=== PATIENT | female | born 1970 | race Caucasian/White ===

== ENCOUNTER 2023-07-23 14:42 | Inpatient (IN) | payer MEDICARE, SELFPAY ==
[2023-07-23 14:43] VITALS: BMI 29.2
--- NOTE | 2023-07-23 14:48 | PC.NURSE ---
PATIENT REFUSING FIRST SET OF VITALS AT TRIAGE. PATIENT REMOVED BP CUFF AND PULSE OX AND WOULD NOT ALLOW FOR TEMP.
--- NOTE | 2023-07-23 14:52 | ED.C_ITS ---
HPI - Psych 2 General: Chief Complaint: Psychiatric Symptoms Stated Complaint: PSYCH Time Seen by Provider: 07/23/23 14:45 Source: patient and EMS Mode of arrival: EMS Limitations: no limitations History of Present Illness: 53-year-old female who is here with EMS for concerns of acute psychosis. Patient here is delusional she is talking about the government injecting people in monitoring him and believes she is being monitored she has a flight of ideas she denies SI or HI denies any headaches. Associated symptoms: Reports auditory hallucinations Review of Systems 2 Const: Denies: fever(s), chills, body aches or change in appetite ENMT: Denies: throat pain or dental pain Card: Denies: chest pain Resp: Denies: dyspnea GI: Denies: abdominal pain, nausea, vomiting or diarrhea Musc: Denies: neck pain or back pain Skin/Breast: Denies: rash Neuro: Denies: headache(s) Psych: Reports: paranoia and auditory hallucinations Physical Exam 2 Const: COMMON NORMALS: no acute distress, patient oriented x3 and healthy appearing HENMT: COMMON NORMALS: normocephalic and atraumatic HEAD & SCALP: n ormocephalic and atraumatic Neck/C-Spine: COMMON NORMALS: full ROM and supple Chest: COMMONS NORMALS: normal inspection of the chest Resp: COMMON NORMALS: normal respiratory effort Cardio: COMMON NORMALS: regular rate, regular rhythm and No murmurs present (Cardio) RATE: regular rate RHYTHM: regular rhythm Extremity: COMMON NORMALS: normal to inspection and full ROM Neuro: COMMON NORMALS: patient oriented x3, moves all extremities and no focal motor deficits Psych: COMMON NORMALS: mental status grossly normal and cooperative MOOD & AFFECT: Yes elevated mood THOUGHT PROCESS: disorganized and Illogical thought process present Skin: COMMON NORMALS: no rashes or lesions noted and no wounds GENERAL SKIN EXAM: no rashes or lesions noted MDM - Psych Medical Decision Making Patient presents here with acute psychosis she is placed under 96-hour hold she is medically cleared I spoke to the psychiatrist and will admit. Medical Records I reviewed the patient's medical records. Lab Data I reviewed the patient's lab results. 07/23/23 15:16 07/23/23 15:16 Laboratory Results WBC 9.08 10^3/uL (3.29-11.43) 07/23/23 15:16 RBC 4.33 10^6/uL (3.85-5.65) 07/23/23 15:16 Hgb 13.30 g/dL (11.27-16.99) 07/23/23 15:16 Hct 40.7 % (36-47) 07/23/23 15:16 MCV 94.0 fl (85-98) 07/23/23 15:16 MCH 30.7 pg (27-33) 07/23/23 15:16 MCHC 32.7 g/dL (30-55) 07/23/23 15:16 RDW 13.4 % (12.1-15.1) 07/23/23 15:16 Plt Count 267 10^3/cmm (157-399) 07/23/23 15:16 MPV 10.0 fL (7.4-10.4) 07/23/23 15:16 Neut % (Auto) 71.1 % 07/23/23 15:16 Lymph % (Auto) 20.5 % 07/23/23 15:16 [place] % (Auto) 6.8 % 07/23/23 15:16 Eos % (Auto) 1.0 % 07/23/23 15:16 Baso % (Auto) 0.4 % 07/23/23 15:16 Neut # (Auto) 6.45 10^3/uL (1.8-7.7) 07/23/23 15:16 Lymph # (Auto) 1.9 10^3/uL (0.8-4.8) 07/23/23 15:16 [place] # (Auto) 0.6 10^3/uL (0.2-0.9) 07/23/23 15:16 Eos # (Auto) 0.1 10^3/uL (0.0-0.8) 07/23/23 15:16 Baso # (Auto) 0.0 10^3/uL (0.0-0.1) 07/23/23 15:16 Nucleated RBC % (auto) 0 % 07/23/23 15:16 Nucleated RBCs # 0.0 /100WBC 07/23/23 15:16 Sodium 141 mmol/L (136-145) 07/23/23 15:16 Potassium 4.1 mmol/L (3.5-5.1) 07/23/23 15:16 Chloride 109 mmol/L (98-107) H 07/23/23 15:16 Carbon Dioxide 23 mmol/L (22-29) 07/23/23 15:16 Anion Gap 13.1 (5-19) 07/23/23 15:16 BUN 8 mg/dL (6-20) 07/23/23 15:16 Creatinine 0.6 mg/dL (0.5-0.9) 07/23/23 15:16 GFR Calculation 105.0 mL/min (90-130) 07/23/23 15:16 Glucose 104 mg/dL (65-115) 07/23/23 15:16 Calculated Osmolality 291 mOsm/kg (285-295) 07/23/23 15:16 Calcium 9.3 mg/dL (8.5-10.5) 07/23/23 15:16 Total Bilirubin 0.2 mg/dL (0.15-1.2) 07/23/23 15:16 AST 16 U/L (0-32) 07/23/23 15:16 ALT 14 U/L (0-33) 07/23/23 15:16 Alkaline Phosphatase 129 U/L (35-105) H 07/23/23 15:16 Total Protein 6.4 g/dL (6.6-8.7) L 07/23/23 15:16 Albumin 3.7 g/dL (3.5-5.2) 07/23/23 15:16 Globulin 2.7 g/dL (1.3-4.6) 07/23/23 15:16 Salicylates < 0.3 mg/dL (3-10) L 07/23/23 15:16 Acetaminophen < 5.0 ug/mL (10-30) L 07/23/23 15:16 Ethyl Alcohol < 10 mg/dL (0-10) 07/23/23 15:16 No radiology studies performed this visit Discharge Plan Discharge Patient Disposition: Admitted As Inpatient Admit Provider: Nicholas Monroy Clinical Impression: Acute psychosis Condition: Stable Coding Level of Care Code ED Dairy Inspector for Joana Sood
[2023-07-23] MEDS: haloperidol inj 5 mg/mL INJ 1 mL IM (15:04)
[2023-07-23] MEDS: LORazepam 2 mg/mL INJ 10 mL MDV IM (15:04)
[2023-07-23 15:26] LABS: Basophils % 0.4 %; Eosinophils # 0.1 10^3/uL (0.0-0.8); Hematocrit 40.7 % (36-47); Lymphocytes # 1.9 10^3/uL (0.8-4.8); Lymphocytes % 20.5 %; Mean Corpuscular HGB Conc 32.7 g/dL (30-55); Mean Corpuscular Hemoglobin 30.7 pg (27-33); Monocytes # 0.6 10^3/uL (0.2-0.9); Monocytes % 6.8 %; Neutrophils # 6.45 10^3/uL (1.8-7.7); Neutrophils % 71.1 %; Nucleated Red Blood Cells % 0 %; Platelet Count 267 10^3/cmm (157-399); Red Blood Count 4.33 10^6/uL (3.85-5.65); Red Cell Distribution Width 13.4 % (12.1-15.1); White Blood Count 9.08 10^3/uL (3.29-11.43)
[2023-07-23 15:46] LABS: Alanine Aminotransferase 14 U/L (0-33); Albumin Level 3.7 g/dL (3.5-5.2); Alkaline Phosphatase 129 U/L (35-105); Anion Gap 13.1 (5-19); Aspartate Amino Transferase 16 U/L (0-32); Blood Urea Nitrogen 8 mg/dL (6-20); Calcium 9.3 mg/dL (8.5-10.5); Carbon Dioxide 23 mmol/L (22-29); Chloride 109 mmol/L (98-107); Creatinine Clr Calc Pharmacy 110.2337; Globulin 2.7 g/dL (1.3-4.6); Glucose 104 mg/dL (65-115); Osmolality Calculated 291 mOsm/kg (285-295); Potassium 4.1 mmol/L (3.5-5.1); Sodium 141 mmol/L (136-145); Total Bilirubin 0.2 mg/dL (0.15-1.2); Total Protein 6.4 g/dL (6.6-8.7)
[2023-07-23 15:51] LABS: Acetaminophen < 5.0 ug/mL (10-30); Alcohol Level < 10 mg/dL (0-10); Salicylate < 0.3 mg/dL (3-10)
--- NOTE | 2023-07-23 15:53 | PC.NURSE ---
96 hr pt rights reviewed with patient with assistance of [facility] it security architect Hussain @[phone]. No questions or concerns at this time. Patient copy left @bedside with patient
[2023-07-23 19:00] VITALS: BP 78/50; PULSE 47; O2SAT 97
--- NOTE | 2023-07-23 21:19 | PC.NURSE ---
Report was called to Mita SWANSON in NPU by Genny SWANSON.
[2023-07-23 23:51] LABS: Amphetamines Screen Urine Negative (Negative); Barbiturates Screen Urine Negative (Negative); Benzodiazepines Screen Urine Positive (Negative); Cocaine Screen Urine Negative (Negative); Opiate Screen Urine Negative (Negative); PCP Screen Urine Negative (Negative); THC Screen Urine Positive (Negative)
[2023-07-24 06:00] VITALS: BP 129/73; PULSE 68; RESP 16; TEMP 36.5; O2SAT 98
--- NOTE | 2023-07-24 08:47 | PC.OT ---
OT eval attempted with pt declining. Pt states I'm not into the eval thing. I don't believe in psychology. Pt becomes agitated. Will attempt eval again at later time.
--- NOTE | 2023-07-24 09:15 | PC.NURSE ---
PT RESTING IN BED AND IS CLEARLY DELUSIONAL. PT SITS UP STRAIGHT IN BED AND STATED I'VE GOT TECHNOLOGY IN MY HEAD AND I HAVE FOR 4 YEARS, I'M HERE TO GET IT THAT SHIT STRAIGHT IN MY HEAD. DENIES SI AND AVH AT THIS TIME. PT ENDORSES HOMICIDAL THOUGHTS AGAINST . PT IS NOTED TO HAVE RAMBLING AND PRESSURED SPEECH DURING ASSESSMENT. PT STATES I LIVE IN TWO DIFFERENT WORLDS AT ALL TIMES AND EVERYTHING I HEAR AND SEE IS FUCKING REAL. PT DENIES PAIN PT STATES THE TECHNOLOGY IN MY HEAD TAKES THE PAIN AWAY. PT BECAME AGGITATED ABOUT THE 96 HOUR HOLD AND STATES IT IS ILLEGAL AND I'M ON A 72 HOUR OLD NOT 96, I KNOW THE LAW YOU CAN LOOK UP WHAT I DID TO THAT IN [place]. THIS RN ASKED IF SHE SAW A DRJostin IN [place] WHEN PT STARTED SCREAMING AT RN I'M NOT FROM [place] I'M FROM [place]. PT WAS ASKED WHAT HER GOAL IS FOR THE DAY PT STATED TO GO HOME BECAUSE EVERYTHING I FUCKING SEE AND HEAR IS REAL. RATES ANXIETY 2/10 AND DEPRESSION 0/10. ALL QUESTIONS ANSWERED AND SUPPORT WAS VOICED.
--- NOTE | 2023-07-24 12:10 | P.NPUHP_ITS ---
Providers/Chief Complaint 2 Admitting Physician: Nicholas Monroy MD Chief Complaint: PSYCH HPI NPU History of Present Illness Rut Bower is a 53 year old female who presented to the emergency department with the following report: Chief Complaint: Psychiatric Symptoms Stated Complaint: PSYCH Time Seen by Provider: 07/23/23 14:45 Source: patient and EMS Mode of arrival: EMS Limitations: no limitations History of Present Illness: 53-year-old female who is here with EMS for concerns of acute psychosis. Patient here is delusional she is talking about the government injecting people in monitoring him and believes she is being monitored she has a flight of ideas she denies SI or HI denies any headaches. Associated symptoms: Reports auditory hallucinations. She was admitted to the neuropsychiatric unit for definitive treatment of those issues. Her screen was positive for cannabis and benzodiazepines. She was reportedly floridly psychotic per staff reports and direct observation. She presented today reporting: Chief complaint Patient believes they were forced into programs and that biological weapons were created inside them. Reports feeling controlled and manipulated. History of the present complaint The patient reported having been admitted to psychiatric hospitals multiple times in the past. They expressed a belief that they were unique, being the only person forced into programs, specifically referring to a [employer] program . The patient claimed that during previous hospitalizations, they were not treated for any condition but were instead used for the creation of biological weapons. They expressed a strong eversion to being controlled by others. The patient reported a history of experiencing what they referred to as Duetecs , which they described as periods of insomnia lasting for days. They attributed these episodes to external influences such as satellites and underground wounds, and compared the feeling to the effects of methamphetamine. However, they denied current use of methamphetamine and stated that the only time they had used it was when they were put on SSRIs in the 80s. The patient identified themselves with the term MKUltra , which they described as a designation for a person born with the ability to have the soul to start the earth . They did not provide further clarification on this belief. The patient expressed a strong resistance to taking any medication, stating that medication had been used to control them throughout their life. They asserted their capability to control themselves without the need for drugs. The patient was aware of being on a 72-hour hold, which they insisted was the legal limit in their state. They expressed a strong desire not to have this period extended and became upset when the possibility was mentioned. They were informed that a doctor would be visiting them the following day. Mental health history Patient has been to a psychiatric hospital multiple times. Reports being part of a program called [employer] where they were forced into programs. Believes they were used for creating biological weapons. No specific mental health diagnosis or treatment mentioned. Meds NPU Home Medications Medication Instructions Recorded Confirmed Last Taken Type No Known Home Medications 07/24/23 07/24/23 Unknown History Allergies Allergy/AdvReac Type Severity Reaction Status Date / Time No Known Allergies Allergy Verified 07/23/23 15:03 PFSH NPU 2 PFSH: Social History Smoking and tobacco/nicotine status: current every day tobacco/nicotine user Mental Status Exam 2 MSE Comments: This is an obese white female in hospital scrubs with limited grooming and eye contact. No abnormal movements except for psychomotor retardation with occasional psychomotor agitation with frustration. Mostly uncooperative with exam in mild to moderate distress. Her speech was monotone in quality and decreased rate and volume except when frustrated. Her thought process was linear but often disorganized. Thought content: Patient denied suicidal or homicidal ideation, there were no delusions reported but clear paranoid and persecutory delusions with significant conspiracy theories noted, she denied any auditory or visual hallucinations but at times appeared to be attending to internal stimuli. Patient denies experiencing paranoia or hearing voices. Reports having Duetecs where they cannot sleep for days, which they describe as feeling like being on meth. Attention and concentration were limited and memory appeared unreliable but none were formally tested. She is alert and oriented to person and place. Her insight, judgment and impulse control are all impaired. Vitals/I&O/Wt Last Vital Signs Temp 97.7 F 07/24/23 06:00 Pulse 68 07/24/23 06:00 Resp 16 07/24/23 06:00 BP 129/73 07/24/23 06:00 Pulse Ox 98 07/24/23 06:00 O2 Del Method Room Air 07/23/23 22:48 Weight last 48 hrs Weight 77.111 kg Data NPU 07/23/23 15:16 07/23/23 15:16 A&P Assessment and plan (1) Acute psychosis: Plan A 53-year-old white female with a history of addiction and mental illness who presents with complex and unusual beliefs about their past and their role in the world. They believe they were part of a program where they were manipulated and controlled. They deny experiencing paranoia or hearing voices, but report periods of prolonged wakefulness. They are resistant to the idea of medication, believing it has been used to control them in the past. 1. Will attempt to gather collateral information. 2. Continue every 15 minute checks for safety. 3. Encourage individual, group and milieu therapy. 4. Encourage sober living treatment after discharge at the highest level care to which she is willing to submit as we explore whether recent addictive behavior played a role in this presentation. 5. Will encourage antipsychotic. Involuntary Hold Information 2 96 Hour Hold: 96 Hour Involuntary Admission: Yes Attestations NPU 2 Medical Necessity Statement*: Inpatient hospitalization is medically necessary and the clinically appropriate intervention at this time. We will monitor/initiate medications and make changes as indicated. She will be in the hospital for over 2 midnights. Her likely length of stay 4-6 days. Coding Level of Care Code Acute Code for Joana Sood Diagnoses Acute psychosis F23
[2023-07-24 14:00] VITALS: BP 139/86; PULSE 90; RESP 20; TEMP 36.7; O2SAT 98
[2023-07-24 22:00] VITALS: BP 121/86; PULSE 95; RESP 18; TEMP 36.6; O2SAT 97
[2023-07-25 06:00] VITALS: BP 139/77; PULSE 58; RESP 16; TEMP 36.6; O2SAT 97
--- NOTE | 2023-07-25 12:15 | PC.NURSE ---
Room searched for contraband. Chips confiscated.
[2023-07-25 14:00] VITALS: BP 109/71; PULSE 63; RESP 20; TEMP 36.9; O2SAT 97
[2023-07-25 21:04] VITALS: BP 160/86; PULSE 90; RESP 18; TEMP 36.7; O2SAT 99
--- NOTE | 2023-07-25 21:59 | P.NPUPN_ITS ---
Subjective NPU 2 Subjective: 53-year-old female with acute psychosis and paranoia currently refusing medications at this time. Patient stated that her had insisted that she take her antidepressants and she did not wish to oblige. She reported that she was somehow being forced and influenced to comply and stated that she was part of a program that was involved in performing special operations and the government was somehow trying to get her. Mental Status Exam 2 MSE Comments: This is an obese white female in hospital scrubs with limited grooming and eye contact. No abnormal movements except for psychomotor retardation with occasional psychomotor agitation with frustration. She was minimally cooperative with exam in mild to moderate distress. Her speech was monotone in quality and decreased rate and volume except when frustrated. Her thought process was linear but often disorganized. Thought content: Patient denied suicidal or homicidal ideation, there were no delusions reported but clear paranoid and persecutory delusions with significant conspiracy theories noted, she denied any auditory or visual hallucinations but at times appeared to be attending to internal stimuli. Patient denies experiencing paranoia or hearing voices. Attention and concentration were limited and memory appeared unreliable but none were formally tested. She is alert and oriented to person and place. Her insight, judgment and impulse control are all impaired. Vitals/I&O/Wt Last Vital Signs Temp 98.0 F 07/25/23 21:04 Pulse 90 07/25/23 21:04 Resp 18 07/25/23 21:04 BP 160/86 07/25/23 21:04 Pulse Ox 99 07/25/23 21:04 O2 Del Method Room Air 07/25/23 21:04 Data NPU 07/23/23 15:16 07/23/23 15:16 A&P Assessment and plan (1) Acute psychosis: Plan A 53-year-old white female with a history of addiction and mental illness who presents with complex and unusual beliefs about their past and their role in the world. They believe they were part of a program where they were manipulated and controlled. They deny experiencing paranoia or hearing voices, but report periods of prolonged wakefulness. They are resistant to the idea of medication, believing it has been used to control them in the past. 1. Will attempt to gather collateral information. 2. Continue every 15 minute checks for safety. 3. Encourage individual, group and milieu therapy. 4. Encourage sober living treatment after discharge at the highest level care to which she is willing to submit as we explore whether recent addictive behavior played a role in this presentation. 5. Will encourage antipsychotic. Involuntary Hold Information 2 96 Hour Hold: 96 Hour Involuntary Admission: Yes Attestations NPU 2 Medical Necessity Statement*: Inpatient hospitalization is medically necessary and the clinically appropriate intervention at this time. We will monitor/initiate medications and make changes as indicated. Her likely length of stay 5-7 days. Coding Level of Care Code Acute Code for Chg Fwd Diagnoses Acute psychosis F23
[2023-07-25] MEDS: acetaminophen 325 mg Tablet 650 MG PO (22:34)
[2023-07-25] MEDS: ibuprofen 600 mg Tablet PO (23:10)
[2023-07-26 06:00] VITALS: BP 157/85; PULSE 57; RESP 17; TEMP 36.6; O2SAT 99
[2023-07-26] MEDS: ibuprofen 600 mg Tablet PO ×3 (07:51→20:18)
--- NOTE | 2023-07-26 11:08 | PC.NURSE ---
Pt refused to take her 3mg Invega this morning, pt stated that if she took this it would make her suicidal.
[2023-07-26] MEDS: acetaminophen 325 mg Tablet 650 MG PO ×2 (11:39→15:56)
--- NOTE | 2023-07-26 12:26 | PC.NURSE ---
Patient room searched for contraband. None found.
[2023-07-26 14:00] VITALS: BP 158/96; PULSE 70; RESP 20; TEMP 36.6; O2SAT 99
--- NOTE | 2023-07-26 15:57 | PC.NURSE ---
Patient threatening to chelsea the doctor because she states he is not letting her leave to go to the emergency room to go get help for her back pain. Doctor notified and tylenol given.
--- NOTE | 2023-07-26 18:50 | P.NPUPN_ITS ---
Subjective NPU 2 Subjective: 53-year-old female with acute psychosis and paranoia. 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 She had continued to isolate herself on the milieu. She had insisted that she be allowed to go home. She had reported that she had previously been diagnosed with bipolar and stated that others in the past had tried to put her on medications but she reports that she became suicidal whenever she got put on those medications. She had reported that she did not wish to become addicted to any medications at this time as she felt that all SSRI's were like crack cocaine. She minimized any problems with sleep disturbance. Mental Status Exam 2 MSE Comments: This is an obese white female in hospital scrubs with limited grooming and eye contact. No abnormal movements except for psychomotor retardation with occasional psychomotor agitation with frustration. She was minimally cooperative with exam in mild to moderate distress. Her speech was monotone in quality and decreased rate and volume except when frustrated. Her thought process was linear. Thought content: Patient denied suicidal or homicidal ideation, there were no delusions reported but clear paranoid and persecutory delusions with significant conspiracy theories noted, she denied any auditory or visual hallucinations but at times appeared to be attending to internal stimuli. Patient denies experiencing paranoia or hearing voices. Attention and concentration were limited and memory appeared unreliable but none were formally tested. She is alert and oriented to person and place. Her insight, judgment and impulse control are all impaired. Vitals/I&O/Wt Last Vital Signs Temp 97.8 F 07/26/23 14:00 Pulse 70 07/26/23 14:00 Resp 20 H 07/26/23 14:00 BP 158/96 07/26/23 14:00 Pulse Ox 99 07/26/23 14:00 O2 Del Method Room Air 07/26/23 06:00 Weight last 48 hrs Weight 75.523 kg Data NPU 07/23/23 15:16 07/23/23 15:16 A&P Assessment and plan (1) Acute psychosis: Plan A 53-year-old white female with a history of addiction and mental illness who presents with complex and unusual beliefs about their past and their role in the world. They believe they were part of a program where they were manipulated and controlled. They deny experiencing paranoia or hearing voices, but report periods of prolonged wakefulness. They are resistant to the idea of medication, believing it has been used to control them in the past. 1. Will attempt to gather collateral information. 2. Continue every 15 minute checks for safety. 3. Encourage individual, group and milieu therapy. 4. Encourage sober living treatment after discharge at the highest level care to which she is willing to submit as we explore whether recent addictive behavior played a role in this presentation. 5. Invega 6mg daily. Involuntary Hold Information 2 96 Hour Hold: 96 Hour Involuntary Admission: Yes Attestations NPU 2 Medical Necessity Statement*: Inpatient hospitalization is medically necessary and the clinically appropriate intervention at this time. We will monitor/initiate medications and make changes as indicated. Her likely length of stay 5-7 days. Coding Level of Care Code Acute Code for Chg Fwd Diagnoses Acute psychosis F23
[2023-07-26 20:06] VITALS: BP 159/133; PULSE 112; RESP 16; TEMP 36.6; O2SAT 98
[2023-07-26 20:27] VITALS: BP 157/93
[2023-07-26] MEDS: trazodone 50 mg Tablet PO ×2 (21:30→22:34)
[2023-07-27] MEDS: ibuprofen 600 mg Tablet PO ×2 (05:13→18:36)
[2023-07-27 06:00] VITALS: BP 159/79; PULSE 54; RESP 18; TEMP 36.5; O2SAT 98
--- NOTE | 2023-07-27 08:20 | PC.NURSE ---
PT DECLINES TAKING INVEGA 6 MG. PT STATES I DON'T TAKE ANTI-PYCHOTICS THAT MAKE ME WANT TO KILL MYSELF. RN ASKED PT IS SHE TOOK THE MEDICATION YESTERDAY, PT STATED NO AND I AM NOT GOING TO. DR. LUKE NOTIFIED, NO NEW ORDERS RECEIVED.
--- NOTE | 2023-07-27 09:05 | PC.NURSE ---
PT UP IN DAY ROOM PUTTING TOGETHER. PT DENIES SI/HI AND AVH AT THIS TIME. RATES PAIN 2/. PT TOOK IBUPROFEN LAST SHIFT AND REPORTS IF SHE POSITIONS HERSELF RIGHT I DON'T HURT RATES ANXIETY 0/10 AND DEPRESSION 3/10 BECAUSE I'M HERE. THAT IS A COMMUNIST. I DON'T BELIEVE IN LOCKING PEOPLE UP THAT HAVEN'T COMMITTED A CRIME. PT WAS EDUCATED THAT SHE IS HERE DUE TO BEING A DANGER TO HERSELF AND OTHERS AND WHEN THE BELIEVES SHE IS SAFE FOR DISCHARGE THEN SHE WILL DISCHARGE. PT CONTINUED MAKING STATEMENTS ABOUT COMMUNIST. PT IS GUARDED WITH STAFF. REPORTS SHE SLEPT WELL. PT GOAL FOR THE DAY IS TO GO HOME WITH MY WHEN HE GETS HERE. ALL QUESTIONS WERE ANSWERED AND SUPPORT VOICED.
[2023-07-27] MEDS: acetaminophen 325 mg Tablet 650 MG PO (10:30)
[2023-07-27 12:10] VITALS: BP 164/88; PULSE 62; RESP 18; TEMP 36.6; O2SAT 98
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
[2023-07-27 19:25] VITALS: BP 174/113; PULSE 76; RESP 18; TEMP 36.8; O2SAT 98
[2023-07-27 20:00] VITALS: BP 163/96; PULSE 55; RESP 17; O2SAT 98
[2023-07-27] MEDS: trazodone 50 mg Tablet PO ×2 (20:11→21:25)
[2023-07-28 06:00] VITALS: BP 128/71; PULSE 53; RESP 16; TEMP 36.6; O2SAT 99
--- NOTE | 2023-07-28 07:32 | PC.NURSE ---
During morning shift assessment, patient stated that she is doing good. Patient reports anxiety about possibly not being discharged today. Patient denies SI, HI, AVH. Patient stated that she does not feel like she should be kept on the unit like a prisoner without committing a crime.
--- NOTE | 2023-07-28 08:08 | PC.NURSE ---
Patient refused invega this morning, stating that she doesn't want to take any new medications here for fear that she will over-react as a side effect and hurt people because of PTSD. Attempts to persuade patient were unsuccessful.
[2023-07-28 13:47] VITALS: BP 150/97; PULSE 102; RESP 20; TEMP 36.8; O2SAT 99
[2023-07-28] MEDS: ibuprofen 600 mg Tablet PO (15:35)
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
[2023-07-28] MEDS: ondansetron 4 MG Tablet PO (19:14)
[2023-07-28 19:15] LABS: Glucose Point of Care 103 mg/dL (70-110)
[2023-07-28 20:07] VITALS: BP 115/70; PULSE 60; RESP 19; TEMP 36.8; O2SAT 97
[2023-07-28] MEDS: trazodone 50 mg Tablet PO (21:04)
[2023-07-29 06:00] VITALS: BP 159/82; PULSE 48; RESP 17; TEMP 36.5; O2SAT 100
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
[2023-07-29] MEDS: paliperidone ER 3 mg Tablet 6 MG PO (09:25)
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
--- NOTE | 2023-07-29 09:58 | DCPLANNER ---
IMM was given to pt and right explained and copy placed in file.
[2023-07-29 10:21] VITALS: BP 159/82; PULSE 48; RESP 17; TEMP 36.5; O2SAT 100
== END 2023-07-29 11:36 | disposition home or self-care (01) | DRG 885 ==
LOC: ER 17:51 → NP 18:10
PROVIDERS: Admitting Provider Psychiatry & Neurology Psychiatry; Emergency Provider Emergency Medicine; Visit Provider Psychiatry & Neurology Psychiatry
DX: F23 Brief psychotic disorder (principal); F17.210 Nicotine dependence, cigarettes, uncomplicated
CPT/HCPCS: 36415; 36416; 80053; 80306; 80307; 82962; 85025; 96372; 97150; 97165; 99285; J1630; J2060; Q0162

== ENCOUNTER 2023-08-10 10:34 | Inpatient (IN) | payer MEDICARE, SELFPAY ==
[2023-08-10 10:35] VITALS: BP 172/98; PULSE 93; RESP 18; TEMP 37.1; O2SAT 95; BMI 27.4
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
[2023-08-10] MEDS: LORazepam 2 mg/mL INJ 10 mL MDV IM (11:11)
[2023-08-10] MEDS: ziprasidone 20 mg/mL SDV 10 MG IM (11:11)
--- NOTE | 2023-08-10 11:52 | PC.NURSE ---
96 hr rights reviewed with patient @1055 with assistance of [facility] financial officer Aaron. Patient verbalized understandment of rights and had not questions or concerns at this time. Patient copy was left @bedside with patient. Cup of water provided to patient.
[2023-08-10 13:10] VITALS: BP 151/102; PULSE 88; RESP 17; TEMP 36.8; O2SAT 97
[2023-08-10 14:00] VITALS: BP 123/78; PULSE 100; RESP 16; TEMP 36.8; O2SAT 98
--- NOTE | 2023-08-10 18:20 | PC.NURSE ---
Patient's wound on left foot cleaned with sterile water, NIRMAL applied. Area covered with gauze. Patient tolerated well. Patient refused tetanus injection.
[2023-08-10] MEDS: neomycin-poly-bacitracin oint 28 gm 1 APPLIC TOPICAL (18:25)
[2023-08-10 21:13] VITALS: BP 123/75; PULSE 91; RESP 16; TEMP 36.8; O2SAT 95
[2023-08-11 06:00] VITALS: BP 136/88; PULSE 60; RESP 18; TEMP 36.6; O2SAT 97
[2023-08-11] MEDS: neomycin-poly-bacitracin oint 28 gm 1 APPLIC TOPICAL (08:48)
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
[2023-08-11 14:00] VITALS: BP 139/84; PULSE 75; RESP 20; TEMP 37; O2SAT 97
[2023-08-11] MEDS: ibuprofen 600 mg Tablet PO (16:22)
--- NOTE | 2023-08-11 16:22 | PC.NURSE ---
PRN Medication: Ibuprofen 600 mg PO given to pt for c/o toothache
[2023-08-11 20:18] VITALS: BP 130/79; PULSE 64; RESP 16; TEMP 36.7; O2SAT 99
[2023-08-11 22:44] LABS: Add Urine Microscopic? YES; Bacteria Urine 3+ /hpf; Bilirubin Urine Neg (Negative); Blood Urine Neg (Negative); Calcium Oxalate Crystals Urine 0-4 /hpf; Glucose Urine UA Norm (Normal); Ketones Urine Negative (Negative); Leukocyte Esterase Urine Negative (Negative); Nitrate Urine Positive (Negative); Protein Urine Neg (Negative); Specific Gravity, Urine 1.025 (1.005-1.030); Squamous Epithelial Cell Urine 0-4 /hpf (0-5); Urine Appearance Slightly Cloudy (CLEAR); Urine Color Yellow (Yellow); Urobilinogen Urine Norm (Negative); pH Urine 5 (5-7)
[2023-08-11 22:45] LABS: Add Urine Culture? Yes
[2023-08-11 22:51] LABS: Amphetamines Screen Urine Negative (Negative); Barbiturates Screen Urine Negative (Negative); Benzodiazepines Screen Urine Positive (Negative); Cocaine Screen Urine Negative (Negative); Opiate Screen Urine Negative (Negative); PCP Screen Urine Negative (Negative); THC Screen Urine Positive (Negative)
[2023-08-12 06:00] VITALS: BP 136/78; PULSE 58; RESP 16; TEMP 36.8; O2SAT 98
[2023-08-12] MEDS: ibuprofen 600 mg Tablet PO (09:13)
[2023-08-12] MEDS: neomycin-poly-bacitracin oint 28 gm 1 APPLIC TOPICAL ×2 (09:14→16:54)
--- NOTE | 2023-08-12 12:39 | P.NPUPN_ITS ---
Subjective NPU 2 Subjective: Patient presented today reporting that she is doing okay. However she continued to have all the same conspiracy theories MK ultra, being a puppet, we will try to give her HIV through medications, excetra. We discussed that this represented psychosis and we ultimately discussed the risks, benefits and alternatives of a trial of Abilify and she understood and agreed to proceed as is documented in this note. She asked for information on it and finally agreed to have her labs done so that she could identify if there was any reason why she should not take the medication based on things she has read. Mental Status Exam 2 MSE Comments: This is an obese white female in hospital scrubs with limited grooming and eye contact. With a notable stench if you are within a couple arms length of her. No abnormal movements except for psychomotor retardation with occasional psychomotor agitation with frustration. Mostly uncooperative with exam in mild to moderate distress. Her speech was monotone in quality and decreased rate and volume except when frustrated. Her thought process was linear but often disorganized. Thought content: Patient denied suicidal or homicidal ideation, there were no delusions reported but clear paranoid and persecutory delusions with significant conspiracy theories noted, she denied any auditory or visual hallucinations but at times appeared to be attending to internal stimuli. Patient denies experiencing paranoia or hearing voices. Reports having Duetecs where they cannot sleep for days, which they describe as feeling like being on meth. Attention and concentration were limited and memory appeared unreliable but none were formally tested. She is alert and oriented to person and place. Her insight, judgment and impulse control are all impaired. Vitals/I&O/Wt Last Vital Signs Temp 98.3 F 08/12/23 06:00 Pulse 58 L 08/12/23 06:00 Resp 16 08/12/23 06:00 BP 136/78 08/12/23 06:00 Pulse Ox 98 08/12/23 06:00 O2 Del Method Room Air 08/11/23 06:00 Data NPU 08/12/23 19:08 08/12/23 19:08 A&P Assessment and plan (1) Acute psychosis: Plan A 53-year-old white female with a history of addiction and mental illness who returns after a short time after her last discharge again presenting with complex and unusual beliefs about their past and their role in the world. They believe they were part of a program where they were manipulated and controlled. They deny experiencing paranoia or hearing voices, but report periods of prolonged wakefulness. They are resistant to the idea of medication, believing it has been used to control them in the past. 1. Will attempt to gather collateral information. 2. Continue every 15 minute checks for safety. 3. Encourage individual, group and milieu therapy. 4. Encourage sober living treatment after discharge at the highest level care to which she is willing to submit as we explore whether recent addictive behavior played a role in this presentation. 5. Will initiate Abilify 10 mg p.o. daily if she will take it. She continues to refuse other medication. Involuntary Hold Information 2 96 Hour Hold: 96 Hour Involuntary Admission: Yes 96 Hour Hold Ending Date: 08/14/23 96 Hour Hold Ending Time: 10:45 Attestations NPU 2 Medical Necessity Statement*: Inpatient hospitalization is medically necessary and the clinically appropriate intervention at this time. We will monitor/initiate medications and make changes as indicated. Her likely length of stay 4-6 days. Coding Level of Care Code Acute Code for Chg Fwd Diagnoses Acute psychosis F23
[2023-08-12 14:00] VITALS: BP 115/77; PULSE 97; RESP 16; TEMP 36.8; O2SAT 98
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
[2023-08-12 19:16] LABS: Basophils # 0.1 10^3/uL (0.0-0.1); Basophils % 0.6 %; Eosinophils # 0.1 10^3/uL (0.0-0.8); Lymphocytes # 2.8 10^3/uL (0.8-4.8); Lymphocytes % 26.4 %; Mean Corpuscular HGB Conc 32.3 g/dL (30-55); Mean Corpuscular Hemoglobin 30.2 pg (27-33); Mean Corpuscular Volume 93.5 fl (85-98); Mean Platelet Volume 10.2 fL (7.4-10.4); Monocytes # 0.8 10^3/uL (0.2-0.9); Monocytes % 7.2 %; Neutrophils # 6.93 10^3/uL (1.8-7.7); Neutrophils % 64.6 %; Nucleated Red Blood Cells % 0 %; Platelet Count 269 10^3/cmm (157-399); Red Blood Count 4.17 10^6/uL (3.85-5.65); Red Cell Distribution Width 13.1 % (12.1-15.1); White Blood Count 10.72 10^3/uL (3.29-11.43)
[2023-08-12 19:39] LABS: Alanine Aminotransferase 11 U/L (0-33); Albumin Level 3.7 g/dL (3.5-5.2); Alkaline Phosphatase 123 U/L (35-105); Aspartate Amino Transferase 12 U/L (0-32); Blood Urea Nitrogen 15 mg/dL (6-20); Calcium 9.3 mg/dL (8.5-10.5); Carbon Dioxide 24 mmol/L (22-29); Chloride 111 mmol/L (98-107); Creatinine Clr Calc Pharmacy 128.5106; Globulin 2.5 g/dL (1.3-4.6); Glomerular Filtration Rate 129.6 mL/min (90-130); Glucose 85 mg/dL (65-115); Osmolality Calculated 298 mOsm/kg (285-295); Sodium 144 mmol/L (136-145); Total Bilirubin 0.2 mg/dL (0.15-1.2); Total Protein 6.2 g/dL (6.6-8.7)
[2023-08-12 20:56] VITALS: BP 113/82; PULSE 76; RESP 18; TEMP 36.5; O2SAT 97
[2023-08-13 06:00] VITALS: BP 102/31; PULSE 62; RESP 16; TEMP 36.7; O2SAT 98
--- NOTE | 2023-08-13 08:14 | PC.NURSE ---
Pt was served a spoiled milk carton dated August 13 2023, that was delivered from the meal breakfast cart. This nurse witnessed that the milk was chunky and clabbered, as well as the Battery Checker.
[2023-08-13] MEDS: ARIPiprazole 10 mg Tablet PO (08:42)
[2023-08-13] MEDS: neomycin-poly-bacitracin oint 28 gm 1 APPLIC TOPICAL ×2 (10:04→18:14)
[2023-08-13 13:42] VITALS: BP 112/61; PULSE 71; RESP 16; TEMP 36.9; O2SAT 99
--- NOTE | 2023-08-13 14:26 | P.NPUPN_ITS ---
Subjective NPU 2 Subjective: Patient presents today reporting that she is doing okay. She did have the Abilify after seeing the results of her labs. She denied any issues thus far except for it making her feel a little sleepy. We discussed the risks, benefits and alternatives of changing it to evening tomorrow and she understood and agreed to proceed as is documented in this note. She continues to be quite delusional and reports significant conspiracy theories per staff reports and direct observation. Mental Status Exam 2 MSE Comments: This is an obese white female in hospital scrubs with limited grooming and eye contact. With a notable stench if you are within a couple arms length of her. No abnormal movements except for psychomotor retardation. Mostly slightly more cooperative with exam in mild to moderate distress. Her speech was monotone in quality and decreased rate and volume except when frustrated. Her thought process was linear but often disorganized. Thought content: Patient denied suicidal or homicidal ideation, there were no delusions reported but clear paranoid and persecutory delusions with significant conspiracy theories noted, she denied any auditory or visual hallucinations but at times appeared to be attending to internal stimuli. Patient denies experiencing paranoia or hearing voices. Reports having Duetecs where they cannot sleep for days, which they describe as feeling like being on meth. Attention and concentration were limited and memory appeared unreliable but none were formally tested. She is alert and oriented to person and place. Her insight, judgment and impulse control are all impaired. Vitals/I&O/Wt Last Vital Signs Temp 98.4 F 08/13/23 13:42 Pulse 71 08/13/23 13:42 Resp 16 08/13/23 13:42 BP 112/61 08/13/23 13:42 Pulse Ox 99 08/13/23 13:42 O2 Del Method Room Air 08/13/23 13:42 Data NPU 08/12/23 19:08 08/12/23 19:08 Micro: Microbiology 08/11/23 21:32 Urine Culture - Preliminary Urine,Clean Catch Gram Negative Rods Microbiology 08/11/23 21:32 Urine,Clean Catch Urine Culture - Preliminary Gram Negative Rods A&P Assessment and plan (1) Acute psychosis: Plan A 53-year-old white female with a history of addiction and mental illness who returns after a short time after her last discharge again presenting with complex and unusual beliefs about their past and their role in the world. They believe they were part of a program where they were manipulated and controlled. They deny experiencing paranoia or hearing voices, but report periods of prolonged wakefulness. They are resistant to the idea of medication, believing it has been used to control them in the past. 1. Will attempt to gather collateral information. 2. Continue every 15 minute checks for safety. 3. Encourage individual, group and milieu therapy. 4. Encourage sober living treatment after discharge at the highest level care to which she is willing to submit as we explore whether recent addictive behavior played a role in this presentation. 5. Initiated Abilify 10 mg p.o. daily. We agreed to change it to 10 mg p.o. nightly tomorrow because she reports it making her a bit drowsy. 6. Filed for 96-hour hold and will likely quickly move to a 21-day hold. Involuntary Hold Information 2 96 Hour Hold: 96 Hour Involuntary Admission: Yes 96 Hour Hold Ending Date: 08/14/23 96 Hour Hold Ending Time: 10:45 Attestations NPU 2 Medical Necessity Statement*: Inpatient hospitalization is medically necessary and the clinically appropriate intervention at this time. We will monitor/initiate medications and make changes as indicated. Her likely length of stay 4-6 days. Coding Level of Care Code Acute Code for g Fwd Diagnoses Acute psychosis F23
[2023-08-13 19:47] VITALS: BP 109/70; PULSE 55; RESP 19; TEMP 36.9; O2SAT 97
[2023-08-14 06:00] VITALS: BP 142/84; PULSE 60; RESP 16; TEMP 36.6; O2SAT 98
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
[2023-08-14] MEDS: ibuprofen 600 mg Tablet PO ×2 (08:01→14:26)
[2023-08-14] MEDS: loperamide 2 mg Capsule PO (08:26)
--- NOTE | 2023-08-14 08:38 | PC.NURSE ---
Patient stated she did not want to use the antibiotic ointment on her foot this morning and that she would like to use it after she showers instead.
--- NOTE | 2023-08-14 10:21 | PC.NURSE ---
PT UP TO NURSES STATION REQUESTING MY BLOOD SUGAR GET CHECKED. I STARTED THAT ABILIFY I DID MY LABS BUT YOU SAID THE OTHER DAY IF I TOOK THE ABILIFY YOU WOULD CHECK MY SUGAR SO I KNOW ITS OK. NEW ORDERS RECEIVED FROM DR. LOVE TO TAKE BLOOD GLUCOSE. PT EDUCATED OF NEW ORDERS. GUEST REQUEST RUNNER TO CHECK GLUCOSE.
[2023-08-14 11:23] LABS: Glucose Point of Care 132 mg/dL (70-110)
[2023-08-14] MEDS: ondansetron 4 MG Tablet PO (11:52)
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
[2023-08-14 13:52] VITALS: BP 140/93; PULSE 59; RESP 16; TEMP 36.9; O2SAT 97
--- NOTE | 2023-08-14 14:30 | PC.NURSE ---
PT TO NURSES STATION REQUESTING SOMETHING FOR MY MOUTH PAIN, I'VE HAD A TOOTHACHE SINCE I WAS F[age]. I KNEW I SHOULD HAVE SUED THEM SOON I FOUND OUT THEY PROGRAMED MY BODY TO HAVE TOOTH PAIN. RN ASSESSED MOUTH AND MUCOUS MEMBRANES, POOR DENTATION IS NOTED TO TEETH AND MOUTH APPEARS REDDENED. NEW ORDERS RECEIVED START CHLORAHEXADINE MOUTH WASH QID FOR MOUTH PAIN/MOUTH IRRITATION. ORDERS PLACED. PT EDUCATED ON MEDICATION/MOUTH WASH. VERBALIZED UNDERSTANDING.
[2023-08-14] MEDS: chlorhexidine gluconate 0.12% Btl 473 mL 30 ML MUCOUS MEM (16:02)
--- NOTE | 2023-08-14 17:59 | P.CONIM_ITS ---
Providers/Reason For Consult 2 Consulting Physician/Specialty*: Hospitalist Reason for Consult*: Hypertension, UTI Attending Physician: Nicholas Monroy MD History of Present Illness History of Present Illness Rut Bower is a 53 year old female who has been experiencing signs of UTI with dysuria, she has not noticed any fever, nausea, vomiting, chills. She is admitted to psych unit, hospital service was consulted for positive urine cultures to help with antibiotic regimen. Review of Systems 2 Const: Denies: fever(s) Eyes: Denies: change in vision ENMT: Denies: throat pain Card: Denies: chest pain Resp: Denies: dyspnea GI: Denies: abdominal pain Medications/Allergies Home Medications Medication Instructions Recorded Confirmed Last Taken Type paliperidone 6 mg tablet,extended 6 mg PO DAILY 30 days #30 tabs 07/29/23 08/10/23 Unknown Rx release 24 hr Allergies Allergy/AdvReac Type Severity Reaction Status Date / Time No Known Allergies Allergy Verified 07/23/23 15:03 Current Medications Generic Name Dose Route Start Last Admin Trade Name Freq PRN Reason Stop Dose Admin Chlorhexidine Gluconate 30 ml 08/14/23 14:29 08/14/23 16:02 Chlorhexidine Gluconate 0.12% Btl 473 Ml MUCOUS MEM 30 ml QID PRN Administration TOOTHACHE Ibuprofen 600 mg 08/11/23 16:12 08/14/23 14:26 Ibuprofen 600 Mg Tablet PO 600 mg Q6H PRN Administration MODERATE PAIN Loperamide HCl 2 mg 08/10/23 13:10 08/14/23 08:26 Loperamide 2 Mg Capsule PO 2 mg Q6H PRN Administration DIARRHEA Neomycin/Polymyxin/Bacitracin 1 applic 08/10/23 18:00 08/14/23 08:38 Wuqzhbcv-Jglc-Nxpvxjgwoh Oint 28 Gm TOPICAL Not Given BID ALBARO Ondansetron HCl 4 mg 08/10/23 13:10 08/14/23 11:52 Ondansetron 4 Mg Tablet PO 4 mg Q6H PRN Administration NAUSEA AND VOMITING PFSH Acute 2 PFSH: Social History Smoking and tobacco/nicotine status: current every day tobacco/nicotine user Vitals/I&O/Wt Last Vital Signs Temp 98.4 F 08/14/23 13:52 Pulse 59 L 06/21/24 13:52 Resp 16 08/14/23 13:52 BP 140/93 08/14/23 13:52 Pulse Ox 97 08/14/23 13:52 O2 Del Method Room Air 08/14/23 06:00 Physical Exam 2 Narrative: Pleasant cooperative Hemodynamically stable GCS 15 Nonfocal neuroexam S1, S2 Afebrile Data 08/15/23 08:02 08/15/23 08:02 Micro: Microbiology 08/11/23 21:32 Urine Culture - Final Urine,Clean Catch Klebsiella pneumoniae Citrobacter Freundii Complex A&P Assessment and plan (1) UTI (urinary tract infection): (2) HTN (hypertension): Plan UTI Klebsiella and Citrobacter sensitive to levofloxacin Bactrim and nitrofurantoin To avoid QT prolonged patient with antipsychotics I would use Bactrim for now Check BMP in the morning anticipating slight increase in creatinine with use of Bactrim Hypertension: Add low-dose lisinopril Consult Attestations 2 Medical Necessity Statement: As per NPU Diagnoses UTI (urinary tract infection) N39.0 HTN (hypertension) I10
--- NOTE | 2023-08-14 18:08 | PC.NURSE ---
Patient requested to use her own personal brush and comb. Dr. Monroy denied this request.
[2023-08-14] MEDS: sulfamethoxazole-trimeth DS 160-800 mg Tablet 1 TAB PO (18:23)
--- NOTE | 2023-08-14 18:25 | PC.NURSE ---
Patient refused ointment again this evening, stating she didn't want to use until she had taken a shower. She stated she was taking a shower at this time since she was refused the request to use her own hairbrush. It was suggested that she just clean the wound and put the ointment on it, but she refused. However, patient was very calm throughout the conversation.
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
[2023-08-14] MEDS: ARIPiprazole 10 mg Tablet PO (20:00)
[2023-08-14 20:20] VITALS: BP 145/85; PULSE 63; RESP 16; TEMP 37; O2SAT 97
[2023-08-15 06:00] VITALS: BP 132/83; PULSE 60; RESP 18; TEMP 36.7; O2SAT 99
[2023-08-15] MEDS: ibuprofen 600 mg Tablet PO ×2 (07:19→14:49)
[2023-08-15 08:17] LABS: Basophils # 0.1 10^3/uL (0.0-0.1); Basophils % 0.7 %; Eosinophils # 0.1 10^3/uL (0.0-0.8); Eosinophils % 1.4 %; Hematocrit 41.4 % (36-47); Lymphocytes # 1.8 10^3/uL (0.8-4.8); Lymphocytes % 21.4 %; Mean Corpuscular HGB Conc 32.9 g/dL (30-55); Mean Corpuscular Hemoglobin 30.8 pg (27-33); Mean Corpuscular Volume 93.9 fl (85-98); Mean Platelet Volume 10.1 fL (7.4-10.4); Monocytes # 0.7 10^3/uL (0.2-0.9); Monocytes % 8.4 %; Neutrophils # 5.83 10^3/uL (1.8-7.7); Neutrophils % 67.8 %; Nucleated Red Blood Cells % 0 %; Platelet Count 268 10^3/cmm (157-399); Red Blood Count 4.41 10^6/uL (3.85-5.65); Red Cell Distribution Width 13.1 % (12.1-15.1)
[2023-08-15] MEDS: sulfamethoxazole-trimeth DS 160-800 mg Tablet 1 TAB PO ×2 (08:45→17:57)
[2023-08-15] MEDS: neomycin-poly-bacitracin oint 28 gm 1 APPLIC TOPICAL ×2 (08:45→17:58)
[2023-08-15] MEDS: lisinopril 10 mg Tablet PO (08:45)
[2023-08-15 08:53] LABS: Anion Gap 13.3 (5-19); Blood Urea Nitrogen 9 mg/dL (6-20); Calcium 9.3 mg/dL (8.5-10.5); Carbon Dioxide 27 mmol/L (22-29); Chloride 106 mmol/L (98-107); Creatinine Clr Calc Pharmacy 91.7933; Glomerular Filtration Rate 87.9 mL/min (90-130); Glucose 91 mg/dL (65-115); Osmolality Calculated 292 mOsm/kg (285-295); Potassium 4.3 mmol/L (3.5-5.1); Sodium 142 mmol/L (136-145)
[2023-08-15] MEDS: chlorhexidine gluconate 0.12% Btl 473 mL 30 ML MUCOUS MEM ×2 (08:55→18:01)
--- NOTE | 2023-08-15 08:57 | PC.NURSE ---
Pt requested a print out of Lisinopril before taking the medication, Pt did her research and decided to take her ordered dose.
--- NOTE | 2023-08-15 10:16 | P.NPUPN_ITS ---
Subjective NPU 2 Subjective: Patient presented today reporting that she is feeling okay. She reports that taking the Abilify at night as allowed her not to have daytime drowsiness and she is denying any issues with the medication. We discussed continuing to taper it as indicated. She seemed to be less preoccupied with her conspiracy theories per staff reports and direct observation however upon asking about her conspiracies she did acknowledge not thinking about being turned into an assassin is much but that she was still thinking about the other issues. She denied any side effects of the medication. Mental Status Exam 2 MSE Comments: This is an obese white female in hospital scrubs with limited grooming and eye contact. With a notable stench if you are within a couple arms length of her. No abnormal movements except for psychomotor retardation. Mostly slightly more cooperative with exam in mild distress. Her speech was monotone in quality and decreased rate and volume except when frustrated. Her thought process was linear but often disorganized. Thought content: Patient denied suicidal or homicidal ideation, there were no delusions reported but clear paranoid and persecutory delusions with significant conspiracy theories noted, she denied any auditory or visual hallucinations but at times appeared to be attending to internal stimuli. Patient denies experiencing paranoia or hearing voices. Reports having Duetecs where they cannot sleep for days, which they describe as feeling like being on meth. Attention and concentration were limited and memory appeared unreliable but none were formally tested. She is alert and oriented to person and place. Her insight, judgment and impulse control are all impaired. Vitals/I&O/Wt Last Vital Signs Temp 98.1 F 08/15/23 06:00 Pulse 60 08/15/23 06:00 Resp 18 08/15/23 06:00 BP 132/83 08/15/23 06:00 Pulse Ox 99 08/15/23 06:00 O2 Del Method Room Air 08/15/23 06:00 Data NPU 08/15/23 08:02 08/15/23 08:02 Micro: Microbiology 08/11/23 21:32 Urine Culture - Final Urine,Clean Catch Klebsiella pneumoniae Citrobacter Freundii Complex Microbiology 08/11/23 21:32 Urine,Clean Catch Urine Culture - Final Klebsiella pneumoniae Citrobacter Freundii Complex A&P Assessment and plan (1) Acute psychosis: Plan A 53-year-old white female with a history of addiction and mental illness who returns after a short time after her last discharge again presenting with complex and unusual beliefs about their past and their role in the world. They believe they were part of a program where they were manipulated and controlled. They deny experiencing paranoia or hearing voices, but report periods of prolonged wakefulness. They are resistant to the idea of medication, believing it has been used to control them in the past. 1. Will attempt to gather collateral information. 2. Continue every 15 minute checks for safety. 3. Encourage individual, group and milieu therapy. 4. Encourage sober living treatment after discharge at the highest level care to which she is willing to submit as we explore whether recent addictive behavior played a role in this presentation. 5. Initiated Abilify 10 mg p.o. daily. Continue Abilify at 10 mg p.o. nightly because she reports it making her a bit drowsy. Increase Abilify to 15 mg p.o. nightly. 6. Filed for 96-hour hold and will likely quickly move to a 21-day hold. 7. Appreciate hospitalist consult for finding of UTI with limited susceptibility. Will incorporate recommendations as indicated. Involuntary Hold Information 2 96 Hour Hold: 96 Hour Involuntary Admission: Yes 96 Hour Hold Ending Date: 08/14/23 96 Hour Hold Ending Time: 10:45 Attestations NPU 2 Medical Necessity Statement*: Inpatient hospitalization is medically necessary and the clinically appropriate intervention at this time. We will monitor/initiate medications and make changes as indicated. Her likely length of stay 7-10 days. Coding Level of Care Code Acute Code for [facility] Diagnoses Acute psychosis F23
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
[2023-08-15 14:00] VITALS: BP 151/90; PULSE 77; RESP 18; TEMP 36.4; O2SAT 99
[2023-08-15 16:09] LABS: Glucose Point of Care 90 mg/dL (70-110)
[2023-08-15 19:45] VITALS: BP 144/73; PULSE 50; RESP 18; TEMP 36.4; O2SAT 99
[2023-08-15] MEDS: ARIPiprazole 10 mg Tablet 15 MG PO (20:15)
[2023-08-16] MEDS: ibuprofen 600 mg Tablet PO ×2 (04:24→12:02)
[2023-08-16 06:00] VITALS: BP 121/67; PULSE 53; RESP 16; TEMP 36.6; O2SAT 98
--- NOTE | 2023-08-16 07:54 | PC.NURSE ---
Patient reading in bed. Denies avh and si/hi. She also denies feeling any depression or anxiety this morning. She says she is having significant pain in her upper right ribs. Patient had this RN feel one of her ribs because it had a divet in it. Rates the pain at a 7/10. She also told this RN that she did not want to do the synagogue thing the other patients did last Thursday. Let patient know that she did not have to participate in any activities she did not feel comfortable in. Calm and cooperative throughout assessment.
[2023-08-16] MEDS: sulfamethoxazole-trimeth DS 160-800 mg Tablet 1 TAB PO ×2 (08:13→18:32)
[2023-08-16] MEDS: lisinopril 10 mg Tablet PO (08:13)
[2023-08-16] MEDS: docusate sodium 100 mg Capsule PO (08:16)
[2023-08-16] MEDS: chlorhexidine gluconate 0.12% Btl 473 mL 30 ML MUCOUS MEM (10:46)
--- NOTE | 2023-08-16 13:43 | W.PM.NPUPNS ---
Subjective NPU Subjective: Patient presented today reporting that she is doing okay. She explained that she would only agreed to take half of her medications because she had not remember that we had discussed increasing it and she was fearful that this functional tester typewriters had a plan to increase it to a dose that would be intolerable to quickly as well as create issues with her blood sugar. We discussed the fact that it seems like her thoughts about being turned into an assassin have become less agitated and less present and on the front of her mind and more something that might be elicited from questions but not something she would assert independently as she was when she presented. We discussed this is being a sign of improvement. We discussed feeling that at 15 mg the Abilify might be at the necessary dose for now which made her feel better. She denied any side effects to the medication. Mental Status Exam MSE Comments: This is an obese white female in hospital scrubs with limited grooming and eye contact. With no body odor noted today. No abnormal movements except for mild psychomotor retardation. More cooperative with exam in mild distress. Her speech was monotone in quality and decreased rate and volume. Her thought process was linear and more often organized. Thought content: Patient denied suicidal or homicidal ideation, there were no delusions reported but clear paranoid and persecutory delusions with significant conspiracy theories noted, she denied any auditory or visual hallucinations. Patient denies experiencing paranoia or hearing voices. Reports having Duetecs where they cannot sleep for days, which they describe as feeling like being on meth. Attention and concentration were limited and memory appeared unreliable but none were formally tested. She is alert and oriented to person and place. Her insight, judgment and impulse control are all impaired. Vitals/I&O/Wt Last Vital Signs Temp 97.9 F 08/16/23 06:00 Pulse 53 L 08/16/23 06:00 Resp 16 08/16/23 06:00 BP 121/67 08/16/23 06:00 Pulse Ox 98 08/16/23 06:00 O2 Del Method Room Air 08/15/23 14:00 Weight last 48 hrs Weight 75.296 kg Data NPU 08/15/23 08:02 08/15/23 08:02 A&P Assessment and plan (1) Acute psychosis: Plan A 53-year-old white female with a history of addiction and mental illness who returns after a short time after her last discharge again presenting with complex and unusual beliefs about their past and their role in the world. They believe they were part of a program where they were manipulated and controlled. They deny experiencing paranoia or hearing voices, but report periods of prolonged wakefulness. They are resistant to the idea of medication, believing it has been used to control them in the past. 1. Will attempt to gather collateral information. 2. Continue every 15 minute checks for safety. 3. Encourage individual, group and milieu therapy. 4. Encourage sober living treatment after discharge at the highest level care to which she is willing to submit as we explore whether recent addictive behavior played a role in this presentation. 5. Initiated Abilify 10 mg p.o. daily. Continue Abilify at 10 mg p.o. nightly because she reports it making her a bit drowsy. Increased Abilify to 15 mg p.o. nightly but she had only taken half a dose the night before because she had the concerns expressed previously in this document. 6. Filed for 96-hour hold and 21-day hold hearing on . 7. Appreciate hospitalist consult for finding of UTI with limited susceptibility. Will incorporate recommendations as indicated. Involuntary Hold Information 96 Hour Hold: 96 Hour Involuntary Admission: Yes 96 Hour Hold Ending Date: 08/14/23 96 Hour Hold Ending Time: 10:45 Attestations NPU Medical Necessity Statement*: Inpatient hospitalization is medically necessary and the clinically appropriate intervention at this time. We will monitor/initiate medications and make changes as indicated. Her likely length of stay 6-9 days. Coding Level of Care Code Acute Code for [facility] Diagnoses Acute psychosis F23
[2023-08-16 14:00] VITALS: BP 134/78; PULSE 128; RESP 15; TEMP 36.8; O2SAT 98
[2023-08-16] MEDS: neomycin-poly-bacitracin oint 28 gm 1 APPLIC TOPICAL (18:32)
[2023-08-16] MEDS: ARIPiprazole 10 mg Tablet 15 MG PO (20:03)
[2023-08-16 20:11] VITALS: BP 90/53; PULSE 49; RESP 16; TEMP 36.8; O2SAT 97
[2023-08-17 06:00] VITALS: BP 97/56; PULSE 53; RESP 16; TEMP 36.7; O2SAT 100
[2023-08-17] MEDS: lisinopril 10 mg Tablet PO (08:15)
[2023-08-17] MEDS: sulfamethoxazole-trimeth DS 160-800 mg Tablet 1 TAB PO ×2 (08:15→17:22)
[2023-08-17] MEDS: docusate sodium 100 mg Capsule PO (08:15)
[2023-08-17] MEDS: lactobacillus 1 Tablet 1 TAB PO ×2 (08:55→17:22)
[2023-08-17] MEDS: ibuprofen 600 mg Tablet PO ×2 (11:34→20:02)
[2023-08-17 14:00] VITALS: BP 127/79; PULSE 55; RESP 16; TEMP 36.6; O2SAT 98
--- NOTE | 2023-08-17 18:05 | P.NPUPN_ITS ---
Subjective NPU 2 Subjective: Patient presented today reporting that she is doing okay. She continues to report that she is tolerating the medication without major issue. Staff reports of significant reduction in psychotic and conspiratorial he language and this was identified as well on direct observation. She denied any side effects of the medication. Mental Status Exam 2 MSE Comments: This is an obese white female in hospital scrubs with limited grooming and eye contact. With no body odor noted today. No abnormal movements except for mild psychomotor retardation. More cooperative with exam in mild distress. Her speech was monotone in quality and decreased rate and volume. Her thought process was linear and more often organized. Thought content: Patient denied suicidal or homicidal ideation, there were no delusions reported but clear paranoid and persecutory delusions with significant conspiracy theories noted, she denied any auditory or visual hallucinations. Patient denies experiencing paranoia or hearing voices. Reports having Duetecs where they cannot sleep for days, which they describe as feeling like being on meth. Attention and concentration were limited and memory appeared unreliable but none were formally tested. She is alert and oriented to person and place. Her insight, judgment and impulse control are all impaired. Vitals/I&O/Wt Last Vital Signs Temp 97.8 F 08/17/23 19:41 Pulse 62 08/17/23 19:41 Resp 17 08/17/23 19:41 BP 105/69 08/17/23 19:41 Pulse Ox 100 08/17/23 19:41 O2 Del Method Room Air 08/17/23 14:00 Data NPU 08/15/23 08:02 08/15/23 08:02 A&P Assessment and plan (1) Acute psychosis: Plan A 53-year-old white female with a history of addiction and mental illness who returns after a short time after her last discharge again presenting with complex and unusual beliefs about their past and their role in the world. They believe they were part of a program where they were manipulated and controlled. They deny experiencing paranoia or hearing voices, but report periods of prolonged wakefulness. They are resistant to the idea of medication, believing it has been used to control them in the past. 1. Will attempt to gather collateral information. 2. Continue every 15 minute checks for safety. 3. Encourage individual, group and milieu therapy. 4. Encourage sober living treatment after discharge at the highest level care to which she is willing to submit as we explore whether recent addictive behavior played a role in this presentation. 5. Initiated Abilify 10 mg p.o. daily. Continue Abilify at 10 mg p.o. nightly because she reports it making her a bit drowsy. Increased Abilify to 15 mg p.o. nightly but she had only taken half a dose the night before because she had the concerns expressed previously in this document. Will move towards long-acting injectable if she is agreeable. 6. Filed for 96-hour hold and 21-day hold hearing on , 08/20/2023. 7. Appreciate hospitalist consult for finding of UTI with limited susceptibility. Will incorporate recommendations as indicated. Involuntary Hold Information 2 96 Hour Hold: 96 Hour Involuntary Admission: Yes 96 Hour Hold Ending Date: 08/14/23 96 Hour Hold Ending Time: 10:45 Attestations NPU 2 Medical Necessity Statement*: Inpatient hospitalization is medically necessary and the clinically appropriate intervention at this time. We will monitor/initiate medications and make changes as indicated. Her likely length of stay 5-8 days. Coding Level of Care Code Acute Code for [facility] Diagnoses Acute psychosis F23
[2023-08-17 19:41] VITALS: BP 105/69; PULSE 62; RESP 17; TEMP 36.6; O2SAT 100
[2023-08-17] MEDS: ARIPiprazole 10 mg Tablet 15 MG PO (19:48)
[2023-08-18 06:00] VITALS: BP 112/83; PULSE 73; RESP 18; TEMP 36.5; O2SAT 96
[2023-08-18] MEDS: lisinopril 10 mg Tablet PO (07:53)
[2023-08-18] MEDS: lactobacillus 1 Tablet 1 TAB PO ×2 (07:53→18:10)
[2023-08-18] MEDS: sulfamethoxazole-trimeth DS 160-800 mg Tablet 1 TAB PO ×2 (07:53→18:10)
[2023-08-18] MEDS: neomycin-poly-bacitracin oint 28 gm 1 APPLIC TOPICAL (07:54)
--- NOTE | 2023-08-18 07:55 | PC.NURSE ---
Medication administered early as patient requested to take it with her breakfast.
[2023-08-18] MEDS: chlorhexidine gluconate 0.12% Btl 473 mL 30 ML MUCOUS MEM (08:05)
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
[2023-08-18 13:43] VITALS: BP 101/67; PULSE 61; RESP 20; TEMP 37.1; O2SAT 98
[2023-08-18] MEDS: ibuprofen 600 mg Tablet PO (13:44)
--- NOTE | 2023-08-18 16:26 | W.PM.NPUPNS ---
Subjective NPU Subjective: Patient presented today reporting that she is doing okay. She continued to have periods of time where she talked about the conspiracies and her involvement in them. However at times she showed considerable increase in insight at 1 point asking so I feel like this Abilify is working so what is that mean, am I schizo? We discussed our belief that she does suffer from psychosis/schizophrenia and she identified and agreed that initiating Abilify Maintena would be the best plan after discussion of the risks, benefits and alternatives she understood and agreed to proceed as is documented in this note. We reviewed the 14-day oral supplementation timeframe. Mental Status Exam MSE Comments: This is an obese white female in hospital scrubs with limited grooming and eye contact. With no body odor noted today. No abnormal movements except for mild psychomotor retardation. More cooperative with exam in mild distress. Her speech was monotone in quality and decreased rate and volume. Her thought process was linear and more often organized. Thought content: Patient denied suicidal or homicidal ideation, there were no delusions reported but clear paranoid and persecutory delusions with significant conspiracy theories noted, she denied any auditory or visual hallucinations. Patient denies experiencing paranoia or hearing voices. Reports having Duetecs where they cannot sleep for days, which they describe as feeling like being on meth. Attention and concentration were limited and memory appeared unreliable but none were formally tested. She is alert and oriented to person and place. Her insight and judgment are improving and impulse control is limited, but improving. Vitals/I&O/Wt Last Vital Signs Temp 98.8 F 08/18/23 13:43 Pulse 61 08/18/23 13:43 Resp 20 H 08/18/23 13:43 BP 101/67 08/18/23 13:43 Pulse Ox 98 08/18/23 13:43 O2 Del Method Room Air 08/18/23 13:43 Data NPU 08/15/23 08:02 08/15/23 08:02 A&P Assessment and plan (1) Acute psychosis: Plan A 53-year-old white female with a history of addiction and mental illness who returns after a short time after her last discharge again presenting with complex and unusual beliefs about their past and their role in the world. They believe they were part of a program where they were manipulated and controlled. They deny experiencing paranoia or hearing voices, but report periods of prolonged wakefulness. They are resistant to the idea of medication, believing it has been used to control them in the past. 1. Treatment team spoke with and he identified her significant psychotic behavior as well as the identifiable improvement on the Abilify. 2. Continue every 15 minute checks for safety. 3. Encourage individual, group and milieu therapy. 4. Encourage sober living treatment after discharge at the highest level care to which she is willing to submit as we explore whether recent addictive behavior played a role in this presentation. 5. Initiated Abilify 10 mg p.o. daily. Continue Abilify at 10 mg p.o. nightly because she reports it making her a bit drowsy. Increased Abilify to 15 mg p.o. nightly but she had only taken half a dose the night before because she had the concerns expressed previously in this document. Abilify Maintena 400 mg IM to be initiated by tomorrow. 6. Filed for 96-hour hold and 21-day hold hearing on , 08/20/2023. 7. Appreciate hospitalist consult for finding of UTI with limited susceptibility. Will incorporate recommendations as indicated. Involuntary Hold Information 96 Hour Hold: 96 Hour Involuntary Admission: Yes 96 Hour Hold Ending Date: 08/14/23 96 Hour Hold Ending Time: 10:45 Attestations NPU Medical Necessity Statement*: Inpatient hospitalization is medically necessary and the clinically appropriate intervention at this time. We will monitor/initiate medications and make changes as indicated. Her likely length of stay 3-7 days. Coding Level of Care Code Acute Code for [facility] Fwd Diagnoses Acute psychosis F23
[2023-08-18] MEDS: ARIPiprazole 10 mg Tablet 15 MG PO (20:32)
[2023-08-18 22:00] VITALS: BP 114/82; PULSE 70; RESP 18; TEMP 36.6; O2SAT 99
[2023-08-19] MEDS: ibuprofen 600 mg Tablet PO ×2 (03:53→20:01)
[2023-08-19 06:00] VITALS: BP 121/85; PULSE 62; RESP 18; TEMP 36.6; O2SAT 100
[2023-08-19] MEDS: neomycin-poly-bacitracin oint 28 gm 1 APPLIC TOPICAL ×2 (08:08→17:20)
[2023-08-19] MEDS: sulfamethoxazole-trimeth DS 160-800 mg Tablet 1 TAB PO ×2 (08:08→17:20)
[2023-08-19] MEDS: lactobacillus 1 Tablet 1 TAB PO ×2 (08:08→17:20)
[2023-08-19] MEDS: lisinopril 10 mg Tablet PO (08:09)
[2023-08-19] MEDS: ARIPiprazole Maintena 400 MG IM (11:38)
[2023-08-19 13:57] VITALS: BP 115/85; PULSE 68; RESP 16; TEMP 36.8; O2SAT 96
--- NOTE | 2023-08-19 14:58 | P.NPUPN_ITS ---
Subjective NPU 2 Subjective: Patient presented today reporting that she is feeling better. She continues to be less likely to bring up her conspiracy theories and seeming less preoccupied with those thoughts. She still has remnants of those issues that pop up in communication but she seems to be identifying that there is some element of them that is not based in reality. We discussed her 21-day hold hearing tomorrow and a plan to avoid that hearing and her agreeing to sign in with the likely discharge of Thursday. We agreed we would talk to her about that plan. She denies any side effects to the medication. Mental Status Exam 2 MSE Comments: This is an obese white female in hospital scrubs with improved grooming and eye contact. With no body odor noted today. No abnormal movements except for mild psychomotor retardation. More cooperative with exam in mild distress. Her speech was monotone in quality and decreased rate and volume. Her thought process was linear and more often organized. Thought content: Patient denied suicidal or homicidal ideation, there were no delusions reported but clear paranoid and persecutory delusions with significant conspiracy theories noted, she denied any auditory or visual hallucinations. Patient denies experiencing paranoia or hearing voices. Reports having Duetecs where they cannot sleep for days, which they describe as feeling like being on meth. Attention and concentration were limited and memory appeared unreliable but none were formally tested. She is alert and oriented to person and place. Her insight and judgment are improving and impulse control is limited, but improving. Vitals/I&O/Wt Last Vital Signs Temp 98.2 F 08/19/23 13:57 Pulse 68 08/19/23 13:57 Resp 16 08/19/23 13:57 BP 115/85 08/19/23 13:57 Pulse Ox 96 08/19/23 13:57 O2 Del Method Room Air 08/19/23 06:00 O2 Flow Rate 99 08/18/23 22:00 Data NPU 08/15/23 08:02 08/15/23 08:02 A&P Assessment and plan (1) Acute psychosis: Plan A 53-year-old white female with a history of addiction and mental illness who returns after a short time after her last discharge again presenting with complex and unusual beliefs about their past and their role in the world. They believe they were part of a program where they were manipulated and controlled. They deny experiencing paranoia or hearing voices, but report periods of prolonged wakefulness. They are resistant to the idea of medication, believing it has been used to control them in the past. 1. Treatment team spoke with and he identified her significant psychotic behavior as well as the identifiable improvement on the Abilify. 2. Continue every 15 minute checks for safety. 3. Encourage individual, group and milieu therapy. 4. Encourage sober living treatment after discharge at the highest level care to which she is willing to submit as we explore whether recent addictive behavior played a role in this presentation. 5. Initiated Abilify 10 mg p.o. daily. Continue Abilify at 10 mg p.o. nightly because she reports it making her a bit drowsy. Increased Abilify to 15 mg p.o. nightly but she had only taken half a dose the night before because she had the concerns expressed previously in this document. Abilify Maintena 400 mg IM to be initiated by tomorrow. 6. Filed for 96-hour hold and 21-day hold hearing on , 08/20/2023. May consider not having the hearing and having patient discharged on Thursday with the significant improvement. 7. Appreciate hospitalist consult for finding of UTI with limited susceptibility. Will incorporate recommendations as indicated. Involuntary Hold Information 2 96 Hour Hold: 96 Hour Involuntary Admission: Yes 96 Hour Hold Ending Date: 08/14/23 96 Hour Hold Ending Time: 10:45 Attestations NPU 2 Medical Necessity Statement*: Inpatient hospitalization is medically necessary and the clinically appropriate intervention at this time. We will monitor/initiate medications and make changes as indicated. Her likely length of stay 2-4 days. Coding Level of Care Code Acute Code for [facility] Fwd Diagnoses Acute psychosis F23
[2023-08-19] MEDS: chlorhexidine gluconate 0.12% Btl 473 mL 30 ML MUCOUS MEM (15:08)
[2023-08-19] MEDS: ARIPiprazole 10 mg Tablet 15 MG PO (20:01)
[2023-08-19] MEDS: trazodone 50 mg Tablet PO (20:02)
[2023-08-19 22:00] VITALS: BP 99/68; PULSE 62; RESP 18; TEMP 36.8; O2SAT 97
[2023-08-20 06:00] VITALS: BP 100/62; PULSE 61; RESP 18; TEMP 36.7; O2SAT 99
[2023-08-20] MEDS: lactobacillus 1 Tablet 1 TAB PO ×2 (08:17→17:25)
[2023-08-20] MEDS: lisinopril 10 mg Tablet PO (08:17)
[2023-08-20] MEDS: sulfamethoxazole-trimeth DS 160-800 mg Tablet 1 TAB PO ×2 (08:17→17:25)
[2023-08-20] MEDS: neomycin-poly-bacitracin oint 28 gm 1 APPLIC TOPICAL ×2 (08:19→17:26)
[2023-08-20] MEDS: ibuprofen 600 mg Tablet PO (11:05)
[2023-08-20] MEDS: ondansetron 4 MG Tablet PO (11:20)
[2023-08-20 14:00] VITALS: BP 99/74; PULSE 62; RESP 16; TEMP 36.9; O2SAT 97
--- NOTE | 2023-08-20 17:33 | P.NPUPN_ITS ---
Subjective NPU 2 Subjective: Patient presented today reporting that she is feeling crappy today she is not really sure why she is feeling sick but she is feeling nauseous. Otherwise though she reports feeling good on the medication and feeling optimistic about continuing it. We discussed that tomorrow when she leaves she will have 11 more doses of oral medication before she can be totally on the long-acting injectable. She denies any side effects to medications and continues to endorse a readiness for discharge tomorrow. Mental Status Exam 2 MSE Comments: This is an obese white female in hospital scrubs with improved grooming and eye contact. With no body odor noted today. No abnormal movements except for mild psychomotor retardation. More cooperative with exam in mild distress. Her speech was monotone in quality and decreased rate and volume. Her thought process was linear and more often organized. Thought content: Patient denied suicidal or homicidal ideation, there were no delusions reported but clear paranoid and persecutory delusions with significant conspiracy theories noted, she denied any auditory or visual hallucinations. Patient denies experiencing paranoia or hearing voices. Reports having Duetecs where they cannot sleep for days, which they describe as feeling like being on meth. Attention and concentration were limited and memory appeared unreliable but none were formally tested. She is alert and oriented to person and place. Her insight and judgment are improving and impulse control is limited, but improving. Vitals/I&O/Wt Last Vital Signs Temp 98.5 F 08/20/23 14:00 Pulse 62 08/20/23 14:00 Resp 16 08/20/23 14:00 BP 99/74 08/20/23 14:00 Pulse Ox 97 08/20/23 14:00 O2 Del Method Room Air 08/20/23 06:00 O2 Flow Rate 99 08/18/23 22:00 Data NPU 08/15/23 08:02 08/15/23 08:02 A&P Assessment and plan (1) Acute psychosis: Plan A 53-year-old white female with a history of addiction and mental illness who returns after a short time after her last discharge again presenting with complex and unusual beliefs about their past and their role in the world. They believe they were part of a program where they were manipulated and controlled. They deny experiencing paranoia or hearing voices, but report periods of prolonged wakefulness. They are resistant to the idea of medication, believing it has been used to control them in the past. 1. Treatment team spoke with and he identified her significant psychotic behavior as well as the identifiable improvement on the Abilify. 2. Continue every 15 minute checks for safety. 3. Encourage individual, group and milieu therapy. 4. Encourage sober living treatment after discharge at the highest level care to which she is willing to submit as we explore whether recent addictive behavior played a role in this presentation. 5. Initiated Abilify 10 mg p.o. daily. Continue Abilify at 10 mg p.o. nightly because she reports it making her a bit drowsy. Increased Abilify to 15 mg p.o. nightly but she had only taken half a dose the night before because she had the concerns expressed previously in this document. Abilify Maintena 400 mg IM to be initiated 08/19/2023. Plan for discharge tomorrow with 11 more doses of oral Abilify. 6. Filed for 96-hour hold and 21-day hold hearing on , 08/20/2023. Patient did not attend hearing as we rescinded the 21-day hold request with her significant improvement. Plan for discharge tomorrow. 7. Appreciate hospitalist consult for finding of UTI with limited susceptibility. Will incorporate recommendations as indicated. Involuntary Hold Information 2 96 Hour Hold: 96 Hour Involuntary Admission: Yes 96 Hour Hold Ending Date: 08/14/23 96 Hour Hold Ending Time: 10:45 Attestations NPU 2 Medical Necessity Statement*: Inpatient hospitalization is medically necessary and the clinically appropriate intervention at this time. We will monitor/initiate medications and make changes as indicated. Her likely length of stay 1-3 days. Coding Level of Care Code Acute Code for [facility] Fwd Diagnoses Acute psychosis F23
[2023-08-20] MEDS: ARIPiprazole 10 mg Tablet 15 MG PO (20:32)
[2023-08-20] MEDS: trazodone 50 mg Tablet PO (20:33)
[2023-08-20 22:00] VITALS: BP 113/78; PULSE 66; RESP 18; TEMP 36.6; O2SAT 100
[2023-08-21 06:00] VITALS: BP 118/79; PULSE 65; RESP 18; TEMP 36.7; O2SAT 99
[2023-08-21] MEDS: ibuprofen 600 mg Tablet PO (06:31)
[2023-08-21] MEDS: lisinopril 10 mg Tablet PO (08:27)
[2023-08-21] MEDS: sulfamethoxazole-trimeth DS 160-800 mg Tablet 1 TAB PO (08:27)
[2023-08-21] MEDS: lactobacillus 1 Tablet 1 TAB PO (08:28)
--- NOTE | 2023-08-21 08:43 | DCPLANNER ---
Imm was printed and given to pt and rights explained and copy placed in file.
[2023-08-21] MEDS: docusate sodium 100 mg Capsule PO (09:03)
[2023-08-21 11:37] VITALS: BP 118/79; PULSE 65; RESP 18; TEMP 36.7; O2SAT 99
[2023-08-21] MEDS: acetaminophen 325 mg Tablet 650 MG PO (11:38)
--- NOTE | 2023-08-21 12:10 | P.NPUDS_ITS ---
Diagnoses at Discharge Discharge Diagnosis (1) Acute psychosis: Status: Acute Reason for Visit Reason for Visit: mhe. hallucinations Involuntary Hold Information 96 Hour Hold: 96 Hour Involuntary Admission: Yes 96 Hour Hold Ending Date: 08/14/23 96 Hour Hold Ending Time: 10:45 Mental Status Exam MSE Comments: This is an obese white female in hospital scrubs with improved grooming and eye contact. With no body odor noted today. No abnormal movements except for mild psychomotor retardation. More cooperative with exam in mild distress. Her speech was monotone in quality and decreased rate and volume. Her thought process was linear and more often organized. Thought content: Patient denied suicidal or homicidal ideation, there were no delusions reported but clear paranoid and persecutory delusions with significant conspiracy theories noted, she denied any auditory or visual hallucinations. Patient denies experiencing paranoia or hearing voices. Reports having Duetecs where they cannot sleep for days, which they describe as feeling like being on meth. Attention and concentration were limited and memory appeared unreliable but none were formally tested. She is alert and oriented to person and place. Her insight and judgment are improving and impulse control is limited, but improving. Discharge Data Studies Completed and Pending: Laboratory Results WBC 8.60 10^3/uL (3.2 9-11.43) 08/15/23 08:02 RBC 4.41 10^6/uL (3.8 5-5.65) 08/15/23 08:02 Hgb 13.60 g/dL (11.27 -16.99) 08/15/23 08:02 Hct 41.4 % (36-47) 08/15/23 08:02 MCV 93.9 fl (85-98) 08/15/23 08:02 MCH 30.8 pg (27-33) 08/15/23 08:02 MCHC 32.9 g/dL (30-55) 08/15/23 08:02 RDW 13.1 % (12.1-15.1 ) 08/15/23 08:02 Plt Count 268 10^3/cmm (157 -399) 08/15/23 08:02 MPV 10.1 fL (7.4-10.4 ) 08/15/23 08:02 Neut % (Auto) 67.8 % 08/15/23 08:02 Lymph % (Auto) 21.4 % 08/15/23 08:02 [place] % (Auto) 8.4 % 08/15/23 08:02 Eos % (Auto) 1.4 % 08/15/23 08:02 Baso % (Auto) 0.7 % 08/15/23 08:02 Neut # (Auto) 5.83 10^3/uL (1.8 -7.7) 08/15/23 08:02 Lymph # (Auto) 1.8 10^3/uL (0.8- 4.8) 08/15/23 08:02 [place] # (Auto) 0.7 10^3/uL (0.2- 0.9) 08/15/23 08:02 Eos # (Auto) 0.1 10^3/uL (0.0- 0.8) 08/15/23 08:02 Baso # (Auto) 0.1 10^3/uL (0.0- 0.1) 08/15/23 08:02 Nucleated RBC % (a uto) 0 % 08/15/23 08:02 Nucleated RBCs # 0.0 /100WBC 08/15/23 08:02 Sodium 142 mmol/L (136-1 45) 08/15/23 08:02 Potassium 4.3 mmol/L (3.5-5 .1) 08/15/23 08:02 Chloride 106 mmol/L (98-10 7) 08/15/23 08:02 Carbon Dioxide 27 mmol/L (22-29) 08/15/23 08:02 Anion Gap 13.3 (5-19) 08/15/23 08:02 BUN 9 mg/dL (6-20) 08/15/23 08:02 Creatinine 0.7 mg/dL (0.5-0. 9) 08/15/23 08:02 GFR Calculation 87.9 mL/min (90-1 30) L 08/15/23 08:02 Glucose 91 mg/dL (65-115) 08/15/23 08:02 POC Glucose 90 mg/dL (70-110) 08/15/23 16:06 Calculated Osmolal ity 292 mOsm/kg (285- 295) 08/15/23 08:02 Calcium 9.3 mg/dL (8.5-10 .5) 08/15/23 08:02 Total Bilirubin 0.2 mg/dL (0.15-1 .2) 08/12/23 19:08 AST 12 U/L (0-32) 08/12/23 19:08 ALT 11 U/L (0-33) 08/12/23 19:08 Alkaline Phosphata se 123 U/L (35-105) H 08/12/23 19:08 Total Protein 6.2 g/dL (6.6-8.7 ) L 08/12/23 19:08 Albumin 3.7 g/dL (3.5-5.2 ) 08/12/23 19:08 Globulin 2.5 g/dL (1.3-4.6 ) 08/12/23 19:08 Urine Color Yellow (Yellow) 08/11/23 21:32 Urine Appearance Slightly cloudy (CLEAR) 08/11/23 21:32 Urine pH 5 (5-7) 08/11/23 21:32 Ur Specific Gravit y 1.025 (1.005-1.0 30) 08/11/23 21:32 Urine Protein Neg (Negative) 08/11/23 21:32 Urine Glucose (UA) Norm (Normal) 08/11/23 21:32 Urine Ketones Negative (Negati ve) 08/11/23 21:32 Urine Blood Neg (Negative) 08/11/23 21:32 Urine Nitrate Positive (Negati ve) H 08/11/23 21:32 Urine Bilirubin Neg (Negative) 08/11/23 21:32 Urine Urobilinogen Norm mg/dL (Negat manuel) 08/11/23 21:32 Ur Leukocyte Chrissy ase Negative (Negati ve) 08/11/23 21:32 Urine RBC None /hpf (0-2) 08/11/23 21:32 Urine WBC 5-10 /hpf (0-5) H 08/11/23 21:32 Ur Squamous Epith Cells 0-4 /hpf (0-5) H 08/11/23 21:32 Calcium Oxalate Cr ystal 0-4 /hpf H 08/11/23 21:32 Amorphous Sediment Not Reportable 08/11/23 21:32 Urine Bacteria 3+ /hpf (NONE) H 08/11/23 21:32 Urine Opiates Scre en Negative ng/mL (N egative) 08/11/23 21:32 Ur Barbiturates Sc reen Negative ng/mL (N egative) 08/11/23 21:32 Ur Phencyclidine S crn Negative ng/mL (N egative) 08/11/23 21:32 Ur Amphetamines Sc reen Negative ng/mL (N egative) 08/11/23 21:32 U Benzodiazepines Scrn Positive ng/mL (N egative) H 08/11/23 21:32 Urine Cocaine Scre en Negative ng/mL (N egative) 08/11/23 21:32 U Marijuana (THC) Screen Positive ng/mL (N egative) H 08/11/23 21:32 Vitals: Last Vital Signs Temp 98.1 F 08/21/23 11:37 Pulse 65 08/21/23 11:37 Resp 18 08/21/23 11:37 BP 118/79 08/21/23 11:37 Pulse Ox 99 08/21/23 11:37 O2 Del Method Room Air 08/21/23 06:00 O2 Flow Rate 99 08/18/23 22:00 Discharge Plan Discharge Patient Disposition: Home Condition: Stable Prescriptions: New Bactrim DS 800-160 mg tablet 1 tab PO DAILY 1 Days Qty: 1 0RF aripiprazole 15 mg tablet 15 mg PO BEDTIME 11 Days Qty: 11 0RF lisinopril 10 mg Tablet 10 mg PO DAILY 30 Days Qty: 30 1RF Lactobacillus acidoph-L.bulgar 1 million cell Tablet 1 tab PO BID 30 Days Qty: 60 1RF Abilify Maintena 400 mg suspension,extended rel recon 400 mg IM Q28D 28 Days Qty: 1 2RF Rx Instructions: Next injection 09/16/2023 and then as directed. Discontinued paliperidone 6 mg tablet extended release 24hr 6 mg PO DAILY 30 Days Qty: 30 1RF Discharge Orders: Discharge Order (Routine); Ordered 08/21/23 Ordered By: Nicholas Monroy Referrals: [facility] [Outside] Akash Downs FNP [Referring] - 09/15/23 10:00 am (Establish care) Discharge Diet: Regular Discharge Activity: Resume usual activity Patient Instructions: Sulfamethoxazole/Trimethoprim (By mouth) (Bactrim, Bactrim DS,..., Paliperidone (By mouth), Urinary Tract Infection in Women (DC), Opioid Safety Discharge Attestations NPU Time Spent in Discharge Care*: less than 30 min Specific Discharge Activities: Specific discharge activities: educating patient, discussing with hospice case manager/social workers/dc planners, documenting/other paperwork and evaluating patient/reviewing data Coding Level of Care Code Acute Code for [facility] Fwd Diagnoses Acute psychosis F23
== END 2023-08-21 12:31 | disposition home or self-care (01) | DRG 885 ==
LOC: ER 11:05 → NP 11:47
PROVIDERS: Internal Medicine; Admitting Provider Psychiatry & Neurology Psychiatry; Emergency Provider Family Medicine; Visit Provider Psychiatry & Neurology Psychiatry
DX: F23 Brief psychotic disorder (principal); N39.0 Urinary tract infection, site not specified; Z16.23 Resistance to quinolones and fluoroquinolones; Z16.29 Resistance to other single specified antibiotic; Z16.30 Resistance to unspecified antimicrobial drugs; I10 Essential (primary) hypertension; B96.1 Klebsiella pneumoniae [K. pneumoniae] as the cause of diseases classified elsewhere; B96.89 Other specified bacterial agents as the cause of diseases classified elsewhere; Z72.0 Tobacco use
CPT/HCPCS: 36415; 36416; 80048; 80053; 80306; 81001; 82962; 85025; 87077; 87086; 87186; 96372; 97150; 97165; 99285; J2060; J3486; Q0162

== ENCOUNTER 2024-08-30 02:58 | Inpatient (IN) | payer MEDICARE, SELFPAY ==
[2024-08-30 03:01] VITALS: BP 184/93; PULSE 103; RESP 18; TEMP 36.9; O2SAT 95
--- OUTSIDE RECORDS SUMMARY | 2024-08-30 03:07 | XMS_ITS | Clinical Summary ---
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 Name Role Phone Unavailable Primary Care Provider Unavailabl e Encounters Date Type Department Care Team Description 07/13/2024 External Device Data [facility] ABSTRACTION Provider, Abstract 07/12/2024 External Device Data [facility] ABSTRACTION Provider, Abstract from Last 3 Months Social History Tobacco Use Types Packs/Day Years Used Date Smoking Tobacco: Never Assessed Sex and Gender Information Value Date Recorded Sex Assigned at Not on file Legal Sex Male 11:24 AM CDT Gender Identity Not on file Sexual Orientation Not on file Plan of Treatment Health Maintenance Due Date Last Done Comments DTAP/TDAP/TD VACCINES (1 - Tdap) 05/08/1990 HEPATITIS B VACCINES (1 of 3 - 19+ 3-dose series) 04/23 COLORECTAL SCREENING 05/08/2016 Colorectal Cancer Screening 05/08/2016 FIT-DNA Q 3 years 05/08/2016 FIT/FOBT Q 1 year 05/08/2016 Flex Sig/CT Colonography Q 5 years 05/08/2016 ZOSTER VACCINE (1 of 2) 05/08/2021 INFLUENZA VACCINE (#1) 2024 Insurance MEDICARE PART A AND B
--- NOTE | 2024-08-30 03:59 | XRR_ITS ---
PROCEDURE INFORMATION: Exam: XR Chest Exam date and time: 08/30/2024 4:22 AM Age: 54 years old Clinical indication: Other: AMS; Additional info: Medical clearance TECHNIQUE: Imaging protocol: Radiologic exam of the chest. Views: 1 view. COMPARISON: No relevant prior studies available. FINDINGS: Lungs: Unremarkable. No consolidation. Pleural spaces: Unremarkable. No pleural effusion. No pneumothorax. Heart/Mediastinum: Unremarkable. No cardiomegaly. Bones/joints: Unremarkable. XR/XR chest 1V portable [id number] IMPRESSION: No acute findings.
--- NOTE | 2024-08-30 03:59 | ECG_ITS ---
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 Measurements Intervals [place] Rate: 87 P: 30 ND: 159 QRS: 16 QRSD: 82 T: 21 QT: 353 QTc: 426 Interpretive Statements SINUS RHYTHM No previous ECG available for comparison Electronically Signed On 08-30-2024 08:17:15 CDT by Mynor Yo M.D. [email or web address]
--- NOTE | 2024-08-30 04:08 | ED.C_ITS ---
HPI - Psych 2 General: Chief Complaint: Psychiatric Symptoms Stated Complaint: MHE SOB Time Seen by Provider: 08/30/24 03:02 History of Present Illness: Patient presents with altered mental status and disorganized thinking. Patient reports hurting myself and states I think I've already . Patient describes olfactory hallucinations, specifically smelling weird frankincense and visual hallucinations of fire fall. Patient confirms taking prescribed medications but appears to have difficulty recalling medication names, stating I don't have any more. Not thinking of them all. Patient has history of psychiatric hospitalization but is unable to recall specific dates, stating I don't even remember the date... this year or last year... I don't know. Patient is requesting antibiotics, though the indication for this request is unclear in the context of the presentation. Related Data Previous Rx's ?Medication ?Instructions ?Recorded Lactobacillus acidoph-L.bulgaricus 1 tab PO BID 30 day s #60 tabs 08/21/23 1 million cell tablet aripiprazole 400 mg intramuscular 400 mg IM Q28D 28 da ys #1 ea 08/21/23 suspension,extended release (Abilify Maintena) lisinopril 10 mg tablet 10 mg PO DAILY 30 days #30 t abs 08/21/23 Allergies Allergy/AdvReac Type Severity Reaction Status Date / Time lithium Allergy Unknown Verified 08/30/24 04:08 Review of Systems 2 General: Reports: ROS unobtainable due to mental status PFSH ED 2 PFSH: Social History Smoking and tobacco/nicotine status: current every day tobacco/nicotine user Physical Exam 2 Const: COMMON NORMALS: no acute distress, patient oriented x3, alert and well nourished HENMT: COMMON NORMALS: normocephalic HEAD & SCALP: normocephalic Chest: COMMONS NORMALS: normal inspection of the chest and normal palpation of entire chest wall Resp: COMMON NORMALS: normal respiratory effort, No retractions, No use of accessory muscles, clear to auscultation bilaterally and percussion normal A USCULTATION: clear to auscultation bilaterally PERCUSSION: percussion normal GI: COMMON NORMALS: Normal to inspection, nondistended, normoactive bowel sounds present, Soft to palpation, non-tender, No hepatosplenomegaly present, no masses and no bruits PALPATION: Yes Soft to palpation and Yes No hepatosplenomegaly present Extremity: COMMON NORMALS: normal to inspection, full ROM, capillary refill normal, no joint enlargement, no clubbing, cyanosis or edema, no calf tenderness and no pedal edema Neuro: COMMON NORMALS: patient oriented x3 SENSORIUM/ORIENTATION: Yes alert Psych: APPEARANCE: Yes unkempt and Yes disheveled MOOD & AFFECT: Yes apathetic and Yes Flat affect present THOUGHT PROCESS: disorganized, confused and Illogical thought process present Skin: COMMON NORMALS: no rashes or lesions noted, turgor normal and no jaundice GENERAL SKIN EXAM: no rashes or lesions noted and turgor normal Course 2 ED course: Mild lab abnormalities but no obvious concerns of infection or other medical condition that would preclude workup and psychiatry. Will begin placement. Vital Signs: Vital signs: Vital Signs Temperature 98.4 F 08/30/24 03:01 Pulse Rate 103 H 08/30/24 03:01 Respiratory Rate 18 08/30/24 03:01 Blood Pressure 184/93 08/30/24 03:01 Pulse Oximetry 95 08/30/24 03:01 Oxygen Delivery Me thod Room Air 08/30/24 03:01 MDM - Psych Medical Decision Making 1. Acute Psychosis/Schizophrenia Exacerbation: - Patient presenting with hallucinations (olfactory and visual) and disorganized thinking - History of psychiatric hospitalizations suggests chronic mental illness - Will review medication compliance and current regimen - Consider psychiatric consultation for medication adjustment - Assess need for inpatient psychiatric admission based on safety concerns and ability to care for self 2. Medication Management: - Patient reports taking medications but cannot name them - Will review medication history in EMR and contact pharmacy if needed - Assess for medication side effects or interactions that could contribute to current symptoms 3. Request for Antibiotics: - Patient requesting antibiotics without clear indication - Will assess for signs of infection that may be contributing to altered mental status - Will explain treatment plan and rationale to patient in clear, simple terms 4. Safety Assessment: - Monitor for self-harm risk given patient's statement about hurting myself - Consider 1:1 observation if acute safety concerns identified - Evaluate need for psychiatric hold if patient unable to contract for safety Medical Records Will do a medical screening exam and if there is no medical condition precluding workup and psychiatry will begin to work on placement. Lab Data 08/30/24 04:08 08/30/24 04:08 Laboratory Results WBC 13.88 10^3/uL (3.29-11.43) H 08/30/24 04:08 RBC 4.70 10^6/uL (3.85-5.65) 08/30/24 04:08 Hgb 13.80 g/dL (11.27-16.99) 08/30/24 04:08 Hct 42.3 % (36-47) 08/30/24 04:08 MCV 90.0 fl (85-98) 08/30/24 04:08 MCH 29.4 pg (27-33) 08/30/24 04:08 MCHC 32.6 g/dL (30-55) 08/30/24 04:08 RDW 14.4 % (12.1-15.1) 08/30/24 04:08 Plt Count 312 10^3/cmm (157-399) 08/30/24 04:08 MPV 9.8 fL (7.4-10.4) 08/30/24 04:08 Neut % (Auto) 77.9 % 08/30/24 04:08 Lymph % (Auto) 12.8 % 08/30/24 04:08 [place] % (Auto) 8.4 % 08/30/24 04:08 Eos % (Auto) 0.1 % 08/30/24 04:08 Baso % (Auto) 0.4 % 08/30/24 04:08 Neut # (Auto) 10.81 10^3/uL (1.8-7.7) H 08/30/24 04:08 Lymph # (Auto) 1.8 10^3/uL (0.8-4.8) 08/30/24 04:08 [place] # (Auto) 1.2 10^3/uL (0.2-0.9) H 08/30/24 04:08 Eos # (Auto) 0.0 10^3/uL (0.0-0.8) 08/30/24 04:08 Baso # (Auto) 0.1 10^3/uL (0.0-0.1) 08/30/24 04:08 Nucleated RBC % (auto) 0 % 08/30/24 04:08 Nucleated RBCs # 0.0 /100WBC 08/30/24 04:08 Sodium 139 mmol/L (136-145) 08/30/24 04:08 Potassium 3.5 mmol/L (3.5-5.1) 08/30/24 04:08 Chloride 103 mmol/L (98-107) 08/30/24 04:08 Carbon Dioxide 20 mmol/L (22-29) L 08/30/24 04:08 Anion Gap 19.5 (5-19) H 08/30/24 04:08 BUN 10 mg/dL (6-20) 08/30/24 04:08 Creatinine 0.8 mg/dL (0.5-0.9) 08/30/24 04:08 GFR Calculation 75.0 mL/min (90-130) L 08/30/24 04:08 Glucose 138 mg/dL (65-115) H 08/30/24 04:08 Calculated Osmolality 289 mOsm/kg (285-295) 08/30/24 04:08 Calcium 9.6 mg/dL (8.5-10.5) 08/30/24 04:08 Total Bilirubin 0.4 mg/dL (0.15-1.2) 08/30/24 04:08 AST 18 U/L (0-32) 08/30/24 04:08 ALT 16 U/L (0-33) 08/30/24 04:08 Alkaline Phosphatase 145 U/L (35-105) H 08/30/24 04:08 Total Protein 7.5 g/dL (6.6-8.7) 08/30/24 04:08 Albumin 4.0 g/dL (3.5-5.2) 08/30/24 04:08 Globulin 3.5 g/dL (1.3-4.6) 08/30/24 04:08 TSH 2.98 uIU/mL (0.27-4.20) 08/30/24 04:08 Salicylates < 0.3 mg/dL (3-10) L 08/30/24 04:08 Acetaminophen < 5.0 ug/mL (10-30) L 08/30/24 04:08 Ethyl Alcohol < 10 mg/dL (0-10) 08/30/24 04:08 No radiology studies performed this visit ED provider radiology interpretation(s): No imaging performed there was no obvious medical condition that would preclude workup and psychiatry. Will begin placement. Discharge Plan Discharge Patient Disposition: Xfer Short-Term Hosp Clinical Impression: Schizophrenia, Suicidal ideation Condition: Stable Print Language: Danish Coding Level of Care Code ED Admissions Manager Rn for Joana Sood
[2024-08-30 04:13] LABS: Hematocrit 42.3 % (36-47); Hemoglobin 13.80 g/dL (11.27-16.99); Mean Corpuscular HGB Conc 32.6 g/dL (30-55); Mean Corpuscular Hemoglobin 29.4 pg (27-33); Mean Corpuscular Volume 90.0 fl (85-98); Nucleated Red Blood Cells % 0 %; Platelet Count 312 10^3/cmm (157-399); Red Blood Count 4.70 10^6/uL (3.85-5.65); White Blood Count 13.88 10^3/uL (3.29-11.43)
[2024-08-30 04:41] LABS: Alanine Aminotransferase 16 U/L (0-33); Albumin Level 4.0 g/dL (3.5-5.2); Alkaline Phosphatase 145 U/L (35-105); Anion Gap 19.5 (5-19); Aspartate Amino Transferase 18 U/L (0-32); Blood Urea Nitrogen 10 mg/dL (6-20); Calcium 9.6 mg/dL (8.5-10.5); Carbon Dioxide 20 mmol/L (22-29); Chloride 103 mmol/L (98-107); Globulin 3.5 g/dL (1.3-4.6); Glucose 138 mg/dL (65-115); Osmolality Calculated 289 mOsm/kg (285-295); Potassium 3.5 mmol/L (3.5-5.1); Sodium 139 mmol/L (136-145); Thyroid Stimulating Hormone 2.98 uIU/mL (0.27-4.20); Total Protein 7.5 g/dL (6.6-8.7)
[2024-08-30 04:45] LABS: Acetaminophen < 5.0 ug/mL (10-30); Alcohol Level < 10 mg/dL (0-10); Salicylate < 0.3 mg/dL (3-10)
--- NOTE | 2024-08-30 06:58 | PC.NURSE ---
0530- patient changed into green scrubs at this time. pt with quiet speech to point of not being able to hear. pt asked to speak up and states just let me sleep. pt states i feel like my head is in a cloud. when asked how long patient felt this way patient states i dont know . i have no one at home. pt denies SI at time but states has had thought without plan .
--- NOTE | 2024-08-30 07:26 | PC.NURSE ---
THIS NURSE ASSUMED CARE @ [id number].
[2024-08-30 07:33] LABS: Respiratory Syncytial Virus Ce NEGATIVE (Negative); SARS-CoV-2 PCR NEGATIVE (Negative)
[2024-08-30] MEDS: LORazepam 1 MG/0.5 ML injection IM (10:00)
[2024-08-30] MEDS: water for injection-sterile 10 ML ×2 (10:12→11:52)
--- NOTE | 2024-08-30 10:13 | PC.NURSE ---
QUINCY WASTED WITH SKY ANGUIANO.
--- NOTE | 2024-08-30 11:17 | PC.NURSE ---
ATTEMPTED STRAIGHT CATH TWICE. PATIENT TOO COMBATIVE FOR CATH. PATIENT CONTINUES TO GRAB AND KICK AT STAFF.
--- NOTE | 2024-08-30 11:36 | PC.NURSE ---
PATIENT WILL NOW ALLOW STAFF TO TOUCH HER. PATIENT HAS WET THROUGH CLOTHING AND BEDDING. PATIENT CONTINUES TO KICK AND SCRATCH AT STAFF. PATIENT WILL NOT MOVE AND UNABLE TO CHANGE AT THIS TIME.
[2024-08-30 12:09] VITALS: PULSE 83; O2SAT 98
--- NOTE | 2024-08-30 13:45 | PC.NURSE ---
96 hr rights reviewed with pt @1300 with assistance of [facility] environmental officer Hussain Lizama Education attempted to be reviewed with pt. Pt would not verbalize understanding to hold parameters. Pt copy was left with pt @bedside. Pt would not verbalize needs or wants at this time.
[2024-08-30 14:02] VITALS: PULSE 83; O2SAT 99
[2024-08-30 14:11] VITALS: BP 158/98; PULSE 96; RESP 18; TEMP 36.8; O2SAT 96
[2024-08-30 15:13] LABS: Glucose Urine UA Negative (Normal); Nitrate Urine Negative (Negative); Specific Gravity, Urine 1.030 (1.005-1.030)
--- NOTE | 2024-08-30 15:14 | PC.NURSE ---
One to One sitter started for pt due to pt confusion and risk of fall.
[2024-08-30 15:18] LABS: Add Urine Microscopic? YES
[2024-08-30 15:23] LABS: PCP Screen Urine Negative (Negative)
[2024-08-30 19:49] VITALS: BP 142/78; PULSE 78; RESP 16; TEMP 36.6; O2SAT 98
[2024-08-31 06:00] VITALS: BP 140/81; PULSE 82; RESP 16; TEMP 36.6; O2SAT 97
--- NOTE | 2024-08-31 13:05 | W.PM.NPUH&PS ---
Providers/Chief Complaint Admitting Physician: Lyle Knowles MD Chief Complaint: MHE SOB HPI NPU History of Present Illness Rut Bower is a 54 year old female who was presented to the emergency department with the following report: Chief Complaint: Psychiatric Symptoms Stated Complaint: MHE SOB Time Seen by Provider: 08/30/24 03:02 History of Present Illness: Patient presents with altered mental status and disorganized thinking. Patient reports hurting myself and states I think I've already . Patient describes olfactory hallucinations, specifically smelling weird frankincense and visual hallucinations of fire fall. Patient confirms taking prescribed medications but appears to have difficulty recalling medication names, stating I don't have any more. Not thinking of them all. Patient has history of psychiatric hospitalization but is unable to recall specific dates, stating I don't even remember the date... this year or last year... I don't know. Patient is requesting antibiotics, though the indication for this request is unclear in the context of the presentation. She was admitted to the neuropsychiatric unit for definitive treatment of those issues. She is known to [facility] through past psychiatric care with only inpatient services other than crisis. An excerpt of her last discharge summary is included below for context and the fact that there have been no substantive changes. She presented with a UDS positive for cannabis and benzodiazepines of the benzodiazepines might be iatrogenic from the emergency department. She presents today reporting that she is somewhat unclear about the events leading up to her getting here. She reports that she thinks she was staying at a friend's house but is not exactly sure. She did endorse being off of her medication and knowing that she needs to get them restarted. However she cannot remember her medications and we discussed the risks, benefits and alternatives of this blurb writer reviewing her chart and identifying past medications that were effective in getting those restarted. She reports that she knows she needs to be back on her medication and be in treatment. We discussed getting collateral information and understanding her situation better prior to making an informed decision about what we should do and what resources she needs. Per her 08/21/2023 [facility] inpatient psychiatric discharge summary: Discharge Diagnosis (1) Acute psychosis: Status: Acute Reason for Visit Reason for Visit: mhe. hallucinations Brief History: History of Present Illness Rut Bower is a 53 year old female who presents to the emergency department with the following report: Chief Complaint: Psychiatric Symptoms Stated Complaint: mhe. hallucinations Time Seen by Provider: 08/10/23 10:35 Source: patient Mode of arrival: EMS History of Present Illness: 53-year-old female brought in by EMS was bizarre tangential paranoid thoughts. She states that people are racing her brain and that she has not been right since she was recently hospitalized given me that was made from humans and possums and her stools have been white ever since. She was recently hospitalized here was discharged home on Invega 6 mg daily she tells me she stopped taking it because she did not like the way it made her feel. She last took it 1 to 2 days ago. She denies use of any drugs or alcohol. She denies any suicidal or homicidal ideation. She is brought in by EMS after she had evidently barricaded herself into a neighbor's home while enforcement had come gotten her out when EMS arrived they had a handcuffed to the front rail of the home. While she had continued to have bizarre tangential thoughts she was not combative with EMS crew was not combative on arrival here did not require any medications or restraints. Context: not taking psychiatric medications Associated symptoms: Reports delusions; Deny homicidal ideation or suicidal ideation Treatments prior to arrival: none She was admitted to the neuropsychiatric unit for definitive treatment of those issues. She is known to this blurb writer through an admission at the beginning of the month. She was discharged with reports of psychosis but limited ability to force medication. An excerpt of the discharge summary is included below for context and the fact that she is a resistant and incapable historian. She presented refusing all labs, refusing all medications, mostly refusing communication and denying any issues. She presents today speaking strangely twice and then at her last admission talking about the fact that she was almost killed here on the last visit but when she went home she smoked weed and that reversed what happened with the pills here. She continued to talk about MK ultra her being the original and only 1. She reports that she does not care if any by believes her not. She talked about people being puppet masters and controlling her. We talked about her being on a hold and wanting to make sure that this time we worked on the underlying issues of her thought disorder but she does not believe she has. Per her 07/29/2023 [facility] inpatient psychiatric discharge summary: PSYCH Brief History: History of Present Illness Rut Bower is a 53 year old female who presented to the emergency department with the following report: Chief Complaint: Psychiatric Symptoms Stated Complaint: PSYCH Time Seen by Provider: 07/23/23 14:45 Source: patient and EMS Mode of arrival: EMS Limitations: no limitations History of Present Illness: 53-year-old female who is here with EMS for concerns of acute psychosis. Patient here is delusional she is talking about the government injecting people in monitoring him and believes she is being monitored she has a flight of ideas she denies SI or HI denies any headaches. Associated symptoms: Reports auditory hallucinations. She was admitted to the neuropsychiatric unit for definitive treatment of those issues. Her screen was positive for cannabis and benzodiazepines. She was reportedly floridly psychotic per staff reports and direct observation. She presented today reporting: Chief complaint Patient believes they were forced into programs and that biological weapons were created inside them. Reports feeling controlled and manipulated. History of the present complaint The patient reported having been admitted to psychiatric hospitals multiple times in the past. They expressed a belief that they were unique, being the only person forced into programs, specifically referring to a [employer] program . The patient claimed that during previous hospitalizations, they were not treated for any condition but were instead used for the creation of biological weapons. They expressed a strong eversion to being controlled by others. The patient reported a history of experiencing what they referred to as Duetecs , which they described as periods of insomnia lasting for days. They attributed these episodes to external influences such as satellites and underground wounds, and compared the feeling to the effects of methamphetamine. However, they denied current use of methamphetamine and stated that the only time they had used it was when they were put on SSRIs in the 80s. The patient identified themselves with the term MKUltra , which they described as a designation for a person born with the ability to have the soul to start the earth . They did not provide further clarification on this belief. The patient expressed a strong resistance to taking any medication, stating that medication had been used to control them throughout their life. They asserted their capability to control themselves without the need for drugs. The patient was aware of being on a 72-hour hold, which they insisted was the legal limit in their state. They expressed a strong desire not to have this period extended and became upset when the possibility was mentioned. They were informed that a doctor would be visiting them the following day. Mental health history Patient has been to a psychiatric hospital multiple times. Reports being part of a program called [employer] where they were forced into programs. Believes they were used for creating biological weapons. No specific mental health diagnosis or treatment mentioned. Hospital Course She slowly acclimated to the individual, group and milieu therapies provided. She presented with resumption of psychosis off of medication. She agreed to switch to abilify from the the Invega. After getting the abilify she was put on the Abilify Maintena 400 mg IM. She tolerated these doses and showed significant improvement during her stay. She worked with the social work team for appropriate outpatient follow-up and aftercare. She was able to contract for safety outside hospital prior to discharge. During the hospitalization, patient had routine laboratory studies which were within normal limits except for few outliers. Additionally there was a general medical evaluation which was also within normal limits and revealed no new acute processes. Discharge Summary: At the time of discharge, she denied psychosis or lethality. And psychosis was resolving. Mood and anxiety were well managed. Patient endorsed a plan to follow-up with the aftercare recommendations of the treatment team. Patient was evaluated and deemed to be absent credible lethality, and had achieved the maximum benefit from an inpatient hospitalization, so was discharged. Meds NPU Home Medications ?Medication ?Instructions ?Recorded ?Confirmed ?Last Taken ?Type celecoxib 100 mg capsule 100 mg PO DAILY 08/30/24 08/30/24 Unknown History conjugated estrogens 0.45 mg 0.45 mg PO DAILY 08/30/24 08/30/24 Unknown History tablet (Premarin) cyanocobalamin (vitamin B-12) 1,000 mcg SUBCUT Q30D 08/30/24 08/30/24 Unknown History 1,000 mcg/mL injection solution quetiapine 25 mg tablet 25 mg PO BID 08/30/24 08/30/24 Unknown History Allergies Allergy/AdvReac Type Severity Reaction Status Date / Time lithium Allergy Unknown Verified 08/30/24 04:08 PFS NPU PFSH: Social History Smoking and tobacco/nicotine status: current every day tobacco/nicotine user Mental Status Exam MSE Comments: This is an obese white female in hospital scrubs with limited grooming and eye contact. No abnormal movements except for psychomotor retardation. Mostly cooperative with exam in mild to moderate distress. Her speech was monotone in quality and decreased rate and volume. Her thought process was linear. Thought content: Patient denied suicidal or homicidal ideation, there were no delusions reported or specifically noted, she denied any auditory or visual hallucinations. Attention and concentration were limited and memory appeared mostly reliable but none were formally tested. She is alert and oriented to person and place. Her insight, judgment and impulse control are all limited versus impaired. Vitals/I&O/Wt Last Vital Signs Temp 98.6 F 08/31/24 14:00 Pulse 76 08/31/24 14:00 Resp 18 08/31/24 14:00 BP 144/84 08/31/24 14:00 Pulse Ox 96 08/31/24 14:00 O2 Del Method Room Air 08/31/24 06:00 Data NPU 08/30/24 04:08 08/30/24 04:08 A&P Assessment and plan 1. Acute psychosis: Plan: This is a 54-year-old white female with a history of addiction and mental illness who has been hospitalized here previously most recently in almost exactly a year ago and returns 1. Will attempt to gather collateral information. 2. Continue every 15 minute checks for safety. 3. Encourage individual, group and milieu therapy. 4. Encourage sober living treatment after discharge at the highest level care to which she is willing to commit as we explore whether recent addictive behavior played a role in this presentation. 5. Will encourage starting an antipsychotic and restarting medications in general. PDMP PDMP Reviewed: Not Reviewed Involuntary Hold Information Hold Status: Legal Status: 96 Hour Hold Date/Time Hold Expires: 09/05/24 12:55 96 Hour Hold: 96 Hour Involuntary Admission: Yes Attestations NPU Medical Necessity Statement*: Inpatient hospitalization is medically necessary and the clinically appropriate intervention at this time. We will monitor/initiate medications and make changes as indicated. She will be in the hospital for over 2 midnights. Her likely length of stay 4-6 days. Coding Level of Care Code Acute Code for [facility] Fwd Diagnoses Acute psychosis F23
[2024-08-31 14:00] VITALS: BP 144/84; PULSE 76; RESP 18; TEMP 37; O2SAT 96
[2024-08-31 19:59] VITALS: BP 128/64; PULSE 71; RESP 18; TEMP 36.8; O2SAT 96
[2024-09-01 06:00] VITALS: BP 141/71; PULSE 63; RESP 18; TEMP 36.7; O2SAT 96
[2024-09-01 14:00] VITALS: BP 132/74; PULSE 96; RESP 19; TEMP 36.9; O2SAT 96
[2024-09-01 20:21] VITALS: BP 157/77; PULSE 81; RESP 19; TEMP 37; O2SAT 96
--- NOTE | 2024-09-01 20:32 | P.NPUPN_ITS ---
Subjective NPU 2 Subjective: Patient presents today reporting that she is doing all right. We discussed the risks, benefits and alternatives of restarting Abilify but she reports she did not like the way that that felt when she was taking it so we reviewed his Invega and she understood and agreed to proceed as his documented in this note. We discussed that she seems to be doing better now that she was in the beginning of her last admission so we were hopeful that this would not be as long as she was here the last time. Mental Status Exam 2 MSE Comments: This is an obese white female in hospital scrubs with limited grooming and eye contact. No abnormal movements except for psychomotor retardation. Mostly cooperative with exam in mild to moderate distress. Her speech was monotone in quality and decreased rate and volume. Her thought process was linear. Thought content: Patient denied suicidal or homicidal ideation, there were no delusions reported or specifically noted, she denied any auditory or visual hallucinations. Attention and concentration were limited and memory appeared mostly reliable but none were formally tested. She is alert and oriented to person and place. Her insight, judgment and impulse control are all limited versus impaired. Vitals/I&O/Wt Last Vital Signs Temp 98.6 F 09/01/24 20:21 Pulse 81 09/01/24 20:21 Resp 19 H 09/01/24 20:21 BP 157/77 09/01/24 20:21 Pulse Ox 96 09/01/24 20:21 O2 Del Method Room Air 09/01/24 20:21 Data NPU 08/30/24 04:08 08/30/24 04:08 A&P Assessment and plan 1. Acute psychosis: Plan: This is a 54-year-old white female with a history of addiction and mental illness who has been hospitalized here previously most recently in almost exactly a year ago and returns 1. Will attempt to gather collateral information. 2. Continue every 15 minute checks for safety. 3. Encourage individual, group and milieu therapy. 4. Encourage sober living treatment after discharge at the highest level care to which she is willing to commit as we explore whether recent addictive behavior played a role in this presentation. 5. Will encourage starting an antipsychotic and restarting medications in general. PDMP PDMP Reviewed: Not Reviewed Involuntary Hold Information 2 Hold Status: Legal Status: 96 Hour Hold Date/Time Hold Expires: 09/05/24 12:55 96 Hour Hold: 96 Hour Involuntary Admission: Yes Attestations NPU 2 Medical Necessity Statement*: Inpatient hospitalization is medically necessary and the clinically appropriate intervention at this time. We will monitor/initiate medications and make changes as indicated. Her likely length of stay 4-6 days. Coding Level of Care Code Acute Code for [facility] Fwd Diagnoses Acute psychosis F23
[2024-09-02 06:00] VITALS: BP 155/72; PULSE 68; RESP 17; TEMP 36.6; O2SAT 97
--- NOTE | 2024-09-02 13:10 | P.NPUPN_ITS ---
Subjective NPU 2 Subjective: Patient presented today reporting she is doing better. She was out of her bed for the first time when being approached for daily interview today. She reports that she is feeling better with the initiation of the Invega. She was less isolative per staff reports and direct observation and much more active with patient walking around in the hallways versus lying in bed. She denied any side effects of the medication. Mental Status Exam 2 MSE Comments: This is an obese white female in hospital scrubs with limited grooming and eye contact. No abnormal movements except for psychomotor retardation. Patient in the room less and out actively walking around. Cooperative with exam in mild distress. Her speech was monotone in quality and decreased rate and volume. Her thought process was linear. Thought content: Patient denied suicidal or homicidal ideation, there were no delusions reported or specifically noted, she denied any auditory or visual hallucinations. Attention and concentration were limited and memory appeared mostly reliable but none were formally tested. She is alert and oriented to person and place. Her insight, judgment and impulse control are all limited versus impaired. Vitals/I&O/Wt Last Vital Signs Temp 97.8 F 09/02/24 06:00 Pulse 68 09/02/24 06:00 Resp 17 09/02/24 06:00 BP 155/72 09/02/24 06:00 Pulse Ox 97 09/02/24 06:00 O2 Del Method Room Air 09/02/24 06:00 Data NPU 08/30/24 04:08 08/30/24 04:08 A&P Assessment and plan 1. Acute psychosis: Plan: This is a 54-year-old white female with a history of addiction and mental illness who has been hospitalized here previously most recently in almost exactly a year ago and returns 1. Will attempt to gather collateral information. 2. Continue every 15 minute checks for safety. 3. Encourage individual, group and milieu therapy. 4. Encourage sober living treatment after discharge at the highest level care to which she is willing to commit as we explore whether recent addictive behavior played a role in this presentation. 5. Started Invega 3 mg p.o. daily this morning. 6. Evaluating against the backdrop of the 96-hour hold and filed for 21-day hold but unclear whether we will have that hearing or not. PDMP PDMP Reviewed: Not Reviewed Involuntary Hold Information 2 Hold Status: Legal Status: 96 Hour Hold Date/Time Hold Expires: 7/14/25 12:55 96 Hour Hold: 96 Hour Involuntary Admission: Yes Attestations NPU 2 Medical Necessity Statement*: Inpatient hospitalization is medically necessary and the clinically appropriate intervention at this time. We will monitor/initiate medications and make changes as indicated. Her likely length of stay 3-5 days. Coding Level of Care Code Acute Code for Chg Fwd Diagnoses Acute psychosis F23
[2024-09-02 14:00] VITALS: BP 154/89; PULSE 73; RESP 18; TEMP 36.9; O2SAT 96
[2024-09-02 20:03] VITALS: BP 195/94; PULSE 73; RESP 19; TEMP 37.1; O2SAT 98
--- NOTE | 2024-09-02 21:28 | PC.NURSE ---
Patient educated on new medication lisinopril. Patient verbalized understanding of asking for help upon standing due to first dose effect and to report side effects to nurse.
[2024-09-03 05:53] VITALS: BP 120/68; PULSE 56; RESP 19; TEMP 36.8; O2SAT 99
--- NOTE | 2024-09-03 13:28 | P.NPUPN_ITS ---
Subjective NPU 2 Subjective: Patient presented today reporting that she is feeling all right. She reports feeling that maybe the Invega was not a good match. We discussed making sure she took her time as she was reporting the issue was that she was feeling depressed and we discussed the fact that depression is not a general side effect of Invega and this more likely represents the depression she is already reported. We discussed the risks, benefits and alternatives of starting Wellbutrin XL and she understood and agreed to proceed as is documented in this note reporting that Wellbutrin has been a positive medication for her in the past. Mental Status Exam 2 MSE Comments: This is an obese white female in hospital scrubs with limited grooming and eye contact. No abnormal movements except for psychomotor retardation. Patient in the room less and out actively walking around. Cooperative with exam in mild distress. Her speech was monotone in quality and decreased rate and volume. Her thought process was linear. Thought content: Patient denied suicidal or homicidal ideation, there were no delusions reported or specifically noted, she denied any auditory or visual hallucinations. Attention and concentration were limited and memory appeared mostly reliable but none were formally tested. She is alert and oriented to person and place. Her insight, judgment and impulse control are all limited versus impaired. Vitals/I&O/Wt Last Vital Signs Temp 98.2 F 09/03/24 05:53 Pulse 56 L 09/03/24 05:53 Resp 19 H 09/03/24 05:53 BP 120/68 09/03/24 05:53 Pulse Ox 99 09/03/24 05:53 O2 Del Method Room Air 09/03/24 05:53 Data NPU 08/30/24 04:08 08/30/24 04:08 A&P Assessment and plan 1. Acute psychosis: Plan: This is a 54-year-old white female with a history of addiction and mental illness who has been hospitalized here previously most recently in almost exactly a year ago and returns 1. Will attempt to gather collateral information. 2. Continue every 15 minute checks for safety. 3. Encourage individual, group and milieu therapy. 4. Encourage sober living treatment after discharge at the highest level care to which she is willing to commit as we explore whether recent addictive behavior played a role in this presentation. 5. Started Invega 3 mg p.o. daily. Will initiate Wellbutrin XL 150 mg p.o. every morning tomorrow morning 6. Evaluating against the backdrop of the 96-hour hold and filed for 21-day hold but unclear whether we will have that hearing or not. PDMP PDMP Reviewed: Not Reviewed Involuntary Hold Information 2 Hold Status: Legal Status: 96 Hour Hold Date/Time Hold Expires: 09/05/24 12:55 96 Hour Hold: 96 Hour Involuntary Admission: Yes Attestations NPU 2 Medical Necessity Statement*: Inpatient hospitalization is medically necessary and the clinically appropriate intervention at this time. We will monitor/initiate medications and make changes as indicated. Her likely length of stay 3-5 days. Coding Level of Care Code Acute Code for Chg Fwd Diagnoses Acute psychosis F23
[2024-09-03 14:00] VITALS: BP 149/79; PULSE 78; RESP 17; TEMP 36.6; O2SAT 98
[2024-09-03 20:32] VITALS: BP 107/58; PULSE 65; RESP 18; TEMP 36.8; O2SAT 96
[2024-09-04 06:00] VITALS: BP 120/80; PULSE 85; RESP 19; TEMP 36.5; O2SAT 97; BMI 38.0
--- NOTE | 2024-09-04 08:38 | P.NPUPN_ITS ---
Subjective NPU 2 Subjective: Patient presented today reporting that things are fine in general. She reports that she has a little bit of a headache remaining but is reduced to a very small 1. She reports that she feels better thus far with the initiation of the Wellbutrin along with the Invega and denied any additional concerns or side effects related to that. We discussed working with the social work team on Thursday to start looking at discharge possibilities for this week which made her happy. Mental Status Exam 2 MSE Comments: This is an obese white female in hospital scrubs with limited grooming and eye contact. No abnormal movements except for mild resolving psychomotor retardation. Patient less isolative and more interactive. Cooperative with exam in mild distress. Her speech was more normal in rate and volume. Her thought process was linear and more organized. Thought content: Patient denied suicidal or homicidal ideation, there were no delusions reported or specifically noted, she denied any auditory or visual hallucinations. Attention and concentration were limited and memory appeared mostly reliable but none were formally tested. She is alert and oriented to person and place. Her insight, judgment and impulse control are all limited but improving. Vitals/I&O/Wt Last Vital Signs Temp 97.7 F 09/04/24 06:00 Pulse 85 09/04/24 06:00 Resp 19 H 09/04/24 06:00 BP 120/80 09/04/24 06:00 Pulse Ox 97 09/04/24 06:00 O2 Del Method Room Air 09/04/24 06:00 Weight last 48 hrs Weight 100.414 kg Data NPU 08/30/24 04:08 08/30/24 04:08 A&P Assessment and plan 1. Acute psychosis: Plan: This is a 54-year-old white female with a history of addiction and mental illness who has been hospitalized here previously most recently in almost exactly a year ago and returns 1. Will attempt to gather collateral information. 2. Continue every 15 minute checks for safety. 3. Encourage individual, group and milieu therapy. 4. Encourage sober living treatment after discharge at the highest level care to which she is willing to commit as we explore whether recent addictive behavior played a role in this presentation. 5. Started Invega 3 mg p.o. daily. Started Wellbutrin XL 150 mg p.o. every morning. 6. Evaluating against the backdrop of the 96-hour hold and filed for 21-day hold but unclear whether we will have that hearing or not. PDMP PDMP Reviewed: Not Reviewed Involuntary Hold Information 2 Hold Status: Legal Status: 96 Hour Hold Date/Time Hold Expires: 09/05/24 12:55 96 Hour Hold: 96 Hour Involuntary Admission: Yes Attestations NPU 2 Medical Necessity Statement*: Inpatient hospitalization is medically necessary and the clinically appropriate intervention at this time. We will monitor/initiate medications and make changes as indicated. Her likely length of stay 2-4 days. Coding Level of Care Code Acute Code for Chg Fwd Diagnoses Acute psychosis F23
[2024-09-04 14:00] VITALS: BP 121/87; PULSE 93; RESP 18; TEMP 36.7; O2SAT 99
[2024-09-04 19:45] VITALS: BP 128/85; PULSE 78; RESP 18; TEMP 36.9; O2SAT 99
[2024-09-05 06:00] VITALS: BP 116/86; PULSE 80; RESP 18; TEMP 36.8; O2SAT 99
--- NOTE | 2024-09-05 12:56 | DCPLANNER ---
Imm was given to pt and rights explained. Copy placed in pts file
[2024-09-05 13:49] VITALS: BP 83/63; PULSE 79; RESP 16; TEMP 36.6; O2SAT 95
[2024-09-05 14:05] VITALS: BP 116/79; PULSE 95; RESP 16; TEMP 36.8; O2SAT 96
--- NOTE | 2024-09-05 14:58 | W.PM.NPUDCS ---
Reason for Visit Reason for Visit: MHE SOB Brief History: History of Present Illness Rut Bower is a 54 year old female who was presented to the emergency department with the following report: Chief Complaint: Psychiatric Symptoms Stated Complaint: MHE SOB Time Seen by Provider: 08/30/24 03:02 History of Present Illness: Patient presents with altered mental status and disorganized thinking. Patient reports hurting myself and states I think I've already . Patient describes olfactory hallucinations, specifically smelling weird frankincense and visual hallucinations of fire fall. Patient confirms taking prescribed medications but appears to have difficulty recalling medication names, stating I don't have any more. Not thinking of them all. Patient has history of psychiatric hospitalization but is unable to recall specific dates, stating I don't even remember the date... this year or last year... I don't know. Patient is requesting antibiotics, though the indication for this request is unclear in the context of the presentation. She was admitted to the neuropsychiatric unit for definitive treatment of those issues. She is known to [facility] through past psychiatric care with only inpatient services other than crisis. An excerpt of her last discharge summary is included below for context and the fact that there have been no substantive changes. She presented with a UDS positive for cannabis and benzodiazepines of the benzodiazepines might be iatrogenic from the emergency department. She presents today reporting that she is somewhat unclear about the events leading up to her getting here. She reports that she thinks she was staying at a friend's house but is not exactly sure. She did endorse being off of her medication and knowing that she needs to get them restarted. However she cannot remember her medications and we discussed the risks, benefits and alternatives of this web content writer reviewing her chart and identifying past medications that were effective in getting those restarted. She reports that she knows she needs to be back on her medication and be in treatment. We discussed getting collateral information and understanding her situation better prior to making an informed decision about what we should do and what resources she needs. Per her 08/21/2023 [facility] inpatient psychiatric discharge summary: Discharge Diagnosis (1) Acute psychosis: Status: Acute Reason for Visit Reason for Visit: mhe. hallucinations Brief History: History of Present Illness Rut Bower is a 53 year old female who presents to the emergency department with the following report: Chief Complaint: Psychiatric Symptoms Stated Complaint: mhe. hallucinations Time Seen by Provider: 08/10/23 10:35 Source: patient Mode of arrival: EMS History of Present Illness: 53-year-old female brought in by EMS was bizarre tangential paranoid thoughts. She states that people are racing her brain and that she has not been right since she was recently hospitalized given me that was made from humans and possums and her stools have been white ever since. She was recently hospitalized here was discharged home on Invega 6 mg daily she tells me she stopped taking it because she did not like the way it made her feel. She last took it 1 to 2 days ago. She denies use of any drugs or alcohol. She denies any suicidal or homicidal ideation. She is brought in by EMS after she had evidently barricaded herself into a neighbor's home while enforcement had come gotten her out when EMS arrived they had a handcuffed to the front rail of the home. While she had continued to have bizarre tangential thoughts she was not combative with EMS crew was not combative on arrival here did not require any medications or restraints. Context: not taking psychiatric medications Associated symptoms: Reports delusions; Deny homicidal ideation or suicidal ideation Treatments prior to arrival: none She was admitted to the neuropsychiatric unit for definitive treatment of those issues. She is known to this web content writer through an admission at the beginning of the month. She was discharged with reports of psychosis but limited ability to force medication. An excerpt of the discharge summary is included below for context and the fact that she is a resistant and incapable historian. She presented refusing all labs, refusing all medications, mostly refusing communication and denying any issues. She presents today speaking strangely twice and then at her last admission talking about the fact that she was almost killed here on the last visit but when she went home she smoked weed and that reversed what happened with the pills here. She continued to talk about MK ultra her being the original and only 1. She reports that she does not care if any by believes her not. She talked about people being puppet masters and controlling her. We talked about her being on a hold and wanting to make sure that this time we worked on the underlying issues of her thought disorder but she does not believe she has. Per her 07/29/2023 [facility] inpatient psychiatric discharge summary: PSYCH Brief History: History of Present Illness Rut Bower is a 53 year old female who presented to the emergency department with the following report: Chief Complaint: Psychiatric Symptoms Stated Complaint: PSYCH Time Seen by Provider: 07/23/23 14:45 Source: patient and EMS Mode of arrival: EMS Limitations: no limitations History of Present Illness: 53-year-old female who is here with EMS for concerns of acute psychosis. Patient here is delusional she is talking about the government injecting people in monitoring him and believes she is being monitored she has a flight of ideas she denies SI or HI denies any headaches. Associated symptoms: Reports auditory hallucinations. She was admitted to the neuropsychiatric unit for definitive treatment of those issues. Her screen was positive for cannabis and benzodiazepines. She was reportedly floridly psychotic per staff reports and direct observation. She presented today reporting: Chief complaint Patient believes they were forced into programs and that biological weapons were created inside them. Reports feeling controlled and manipulated. History of the present complaint The patient reported having been admitted to psychiatric hospitals multiple times in the past. They expressed a belief that they were unique, being the only person forced into programs, specifically referring to a [employer] program . The patient claimed that during previous hospitalizations, they were not treated for any condition but were instead used for the creation of biological weapons. They expressed a strong eversion to being controlled by others. The patient reported a history of experiencing what they referred to as Duetecs , which they described as periods of insomnia lasting for days. They attributed these episodes to external influences such as satellites and underground wounds, and compared the feeling to the effects of methamphetamine. However, they denied current use of methamphetamine and stated that the only time they had used it was when they were put on SSRIs in the 80s. The patient identified themselves with the term MKUltra , which they described as a designation for a person born with the ability to have the soul to start the earth . They did not provide further clarification on this belief. The patient expressed a strong resistance to taking any medication, stating that medication had been used to control them throughout their life. They asserted their capability to control themselves without the need for drugs. The patient was aware of being on a 72-hour hold, which they insisted was the legal limit in their state. They expressed a strong desire not to have this period extended and became upset when the possibility was mentioned. They were informed that a doctor would be visiting them the following day. Mental health history Patient has been to a psychiatric hospital multiple times. Reports being part of a program called [employer] where they were forced into programs. Believes they were used for creating biological weapons. No specific mental health diagnosis or treatment mentioned. Hospital Course Hospital Course She slowly acclimated to the individual, group and milieu therapies provided. She presented with resumption of psychosis off of medication. She did not feel the Abilify was working and she was willing to switch back onto Invega. Additionally we started Wellbutrin XL for depression and allowed her to have Vistaril and trazodone for anxiety and sleep respectively as needed. She was positive for benzodiazepines and cannabis as she has been in the past 2 admissions. These medications were started without incident. The absence of the drugs of abuse, the continuation of her home medications and the addition of Invega, Wellbutrin and her as needed medications as well as being in the treatment mill you led to a positive response. She tolerated her medications and showed significant improvement during her stay. She worked with the social work team for appropriate outpatient follow-up and aftercare. She was able to contract for safety outside hospital prior to discharge. During the hospitalization, patient had routine laboratory studies which were within normal limits except for few outliers. Additionally there was a general medical evaluation which was also within normal limits and revealed no new acute processes. Discharge Summary: At the time of discharge, she denied psychosis or lethality. Her psychosis was resolving. Mood and anxiety were well managed. Patient endorsed a plan to avoid all drugs of abuse and follow-up with the aftercare recommendations of the treatment team. Patient was evaluated and deemed to be absent credible lethality, and obtained the maximum benefit from inpatient hospitalization, so was discharged. Involuntary Hold Information Hold Status: Legal Status: 96 Hour Hold Date/Time Hold Expires: 09/05/24 12:55 96 Hour Hold: 96 Hour Involuntary Admission: Yes Mental Status Exam MSE Comments: This is an obese white female in hospital scrubs with limited grooming and eye contact. No abnormal movements except for mild resolving psychomotor retardation. Patient less isolative and more interactive. Cooperative with exam in mild distress. Her speech was more normal in rate and volume. Her thought process was linear and more organized. Thought content: Patient denied suicidal or homicidal ideation, there were no delusions reported or specifically noted, she denied any auditory or visual hallucinations. Attention and concentration were limited and memory appeared mostly reliable but none were formally tested. She is alert and oriented to person and place. Her insight, judgment and impulse control are all limited but improving. Discharge Data Studies Completed and Pending: Completed Studies During Hospitalization Category Date Time Status XR chest 1V christopher ble [id number] Stat Exams 08/30/24 03:59 Completed Radiology Impressions Chest X-Ray 08/30/24 03:59 IMPRESSION: No acute findings. Laboratory Results WBC 13.88 10^3/uL (3. 29-11.43) H 08/30/24 04:08 RBC 4.70 10^6/uL (3.8 5-5.65) 08/30/24 04:08 Hgb 13.80 g/dL (11.27 -16.99) 08/30/24 04:08 Hct 42.3 % (36-47) 08/30/24 04:08 MCV 90.0 fl (85-98) 08/30/24 04:08 MCH 29.4 pg (27-33) 08/30/24 04:08 MCHC 32.6 g/dL (30-55) 08/30/24 04:08 RDW 14.4 % (12.1-15.1 ) 08/30/24 04:08 Plt Count 312 10^3/cmm (157 -399) 08/30/24 04:08 MPV 9.8 fL (7.4-10.4) 08/30/24 04:08 Neut % (Auto) 77.9 % 08/30/24 04:08 Lymph % (Auto) 12.8 % 08/30/24 04:08 [place] % (Auto) 8.4 % 08/30/24 04:08 Eos % (Auto) 0.1 % 08/30/24 04:08 Baso % (Auto) 0.4 % 08/30/24 04:08 Neut # (Auto) 10.81 10^3/uL (1. 8-7.7) H 08/30/24 04:08 Lymph # (Auto) 1.8 10^3/uL (0.8- 4.8) 08/30/24 04:08 [place] # (Auto) 1.2 10^3/uL (0.2- 0.9) H 08/30/24 04:08 Eos # (Auto) 0.0 10^3/uL (0.0- 0.8) 08/30/24 04:08 Baso # (Auto) 0.1 10^3/uL (0.0- 0.1) 08/30/24 04:08 Nucleated RBC % (a uto) 0 % 08/30/24 04:08 Nucleated RBCs # 0.0 /100WBC 08/30/24 04:08 Sodium 139 mmol/L (136-1 45) 08/30/24 04:08 Potassium 3.5 mmol/L (3.5-5 .1) 08/30/24 04:08 Chloride 103 mmol/L (98-10 7) 08/30/24 04:08 Carbon Dioxide 20 mmol/L (22-29) L 08/30/24 04:08 Anion Gap 19.5 (5-19) H 08/30/24 04:08 BUN 10 mg/dL (6-20) 08/30/24 04:08 Creatinine 0.8 mg/dL (0.5-0. 9) 08/30/24 04:08 GFR Calculation 75.0 mL/min (90-1 30) L 08/30/24 04:08 Glucose 138 mg/dL (65-115 ) H 08/30/24 04:08 Calculated Osmolal ity 289 mOsm/kg (285- 295) 08/30/24 04:08 Calcium 9.6 mg/dL (8.5-10 .5) 08/30/24 04:08 Total Bilirubin 0.4 mg/dL (0.15-1 .2) 08/30/24 04:08 AST 18 U/L (0-32) 08/30/24 04:08 ALT 16 U/L (0-33) 08/30/24 04:08 Alkaline Phosphata se 145 U/L (35-105) H 08/30/24 04:08 Total Protein 7.5 g/dL (6.6-8.7 ) 08/30/24 04:08 Albumin 4.0 g/dL (3.5-5.2 ) 08/30/24 04:08 Globulin 3.5 g/dL (1.3-4.6 ) 08/30/24 04:08 TSH 2.98 uIU/mL (0.27 -4.20) 08/30/24 04:08 Urine Color Dark yellow (Yel low) A 08/30/24 14:42 Urine Appearance Cloudy (CLEAR) A 08/30/24 14:42 Urine pH 5.5 (5-7) 08/30/24 14:42 Ur Specific Gravit y 1.030 (1.005-1.0 30) 08/30/24 14:42 Urine Protein 1+ (Negative) A 08/30/24 14:42 Urine Glucose (UA) Negative (Normal ) 08/30/24 14:42 Urine Ketones Trace (Negative) 08/30/24 14:42 Urine Blood Negative (Negati ve) 08/30/24 14:42 Urine Nitrate Negative (Negati ve) 08/30/24 14:42 Urine Bilirubin 1+ (Negative) H 08/30/24 14:42 Urine Urobilinogen 1.0 mg/dL (Negati ve) 08/30/24 14:42 Ur Leukocyte Chrissy ase Negative (Negati ve) 08/30/24 14:42 Urine RBC 3-5 /hpf (0-2) 08/30/24 14:42 Urine WBC 0-5 /hpf (0-5) 08/30/24 14:42 Ur Squamous Epith Cells 6-10 /hpf (0-5) 08/30/24 14:42 Amorphous Sediment Not Reportable 08/30/24 14:42 Urine Bacteria Trace /hpf (NONE) 08/30/24 14:42 Hyaline Casts 4.95 /lpf 08/30/24 14:42 Salicylates < 0.3 mg/dL (3-10 ) L 08/30/24 04:08 Urine Opiates Scre en Negative ng/mL (N egative) 08/30/24 14:42 Acetaminophen < 5.0 ug/mL (10-3 0) L 08/30/24 04:08 Ur Barbiturates Sc reen Negative ng/mL (N egative) 08/30/24 14:42 Ur Phencyclidine S crn Negative ng/mL (N egative) 08/30/24 14:42 Ur Amphetamines Sc reen Negative ng/mL (N egative) 08/30/24 14:42 U Benzodiazepines Scrn Positive ng/mL (N egative) H 08/30/24 14:42 Urine Cocaine Scre en Negative ng/mL (N egative) 08/30/24 14:42 U Marijuana (THC) Screen Positive ng/mL (N egative) H 08/30/24 14:42 Ethyl Alcohol < 10 mg/dL (0-10) 08/30/24 04:08 Influenza A (PCR) Negative (Negati ve) 08/30/24 06:45 Influenza Type B ( PCR) Negative (Negati ve) 08/30/24 06:45 RSV (PCR) Negative (Negati ve) 08/30/24 06:45 SARS-CoV-2 (PCR) Negative (Negati ve) 08/30/24 06:45 Vitals: Last Vital Signs Temp 98.3 F 09/05/24 14:05 Pulse 95 09/05/24 14:05 Resp 16 09/05/24 14:05 BP 116/79 09/05/24 14:05 Pulse Ox 96 09/05/24 14:05 O2 Del Method Room Air 09/05/24 13:49 Discharge Plan Discharge Patient Disposition: Home Condition: Stable Prescriptions: New trazodone 50 mg Tablet 50 mg PO BEDTIME PRN (Reason: Sleep) 30 Days Qty: 30 1RF lisinopril 10 mg Tablet 10 mg PO DAILY 30 Days Qty: 30 1RF hydroxyzine pamoate 25 mg Capsule 50 mg PO Q6H PRN (Reason: Anxiety) 30 Days Qty: 120 1RF bupropion HCl 150 mg Tablet Extended Release 24 Hr 150 mg PO DAILY 30 Days Qty: 30 1RF paliperidone 3 mg Tablet Extended Release 24hr 3 mg PO DAILY 30 Days Qty: 30 1RF Continued cyanocobalamin (vitamin B-12) 1,000 mcg/mL solution 1,000 mcg SUBCUT Q30D celecoxib 100 mg capsule 100 mg PO DAILY Premarin 0.45 mg tablet 0.45 mg PO DAILY quetiapine 25 mg tablet 25 mg PO BID 30 Days Qty: 60 1RF Discharge Order = DC NOW: Discharge Order (Routine); Ordered 09/05/24 Ordered By: Nicholas Monroy Referrals: [facility] [Other] - 09/13/24 11:30 am Referral Note: Initial appointment with Andreia Ramirez. Akash Downs FNP [Referring] - 09/07/24 4:00 pm Discharge Diet: Regular Discharge Activity: Resume usual activity Patient Instructions: Bupropion (By mouth) (Zyban, Wellbutrin XL, Wellbutrin SR, Wellbutrin), Paliperidone (By mouth), Depression (DC), Help Prevent Suicide (DC), Psychotic Disorder (DC), Opioid Safety, Patient Portal & Luis A Instructions Discharge Attestations NPU Time Spent in Discharge Care*: less than 30 min Specific Discharge Activities: Specific discharge activities: educating patient, discussing with caseworker/social workers/dc planners, documenting/other paperwork and evaluating patient/reviewing data Coding Level of Care Code Acute Code for Chg Fwd Diagnoses Acute psychosis F23
== END 2024-09-05 15:59 | disposition home or self-care (01) | DRG 885 ==
LOC: ER 11:56 → ER IP 12:29 → NP 13:29
PROVIDERS: Family Medicine; Admitting Provider Psychiatry & Neurology Psychiatry; Emergency Provider Family Medicine; Visit Provider Psychiatry & Neurology Psychiatry
DX: F23 Brief psychotic disorder (principal); E66.9 Obesity, unspecified; Z68.38 Body mass index [BMI] 38.0-38.9, adult
CPT/HCPCS: 36415; 71045; 80053; 80306; 80307; 81001; 84443; 85025; 87637; 93005; 96372; 97150; 97165; 99285; J2060; J3486; J9999

== ENCOUNTER 2024-12-14 11:00 | Inpatient (IN) | payer MEDICARE, SELFPAY ==
[2024-12-14 11:08] VITALS: BP 174/109; PULSE 105; RESP 20; TEMP 36.8; O2SAT 98
--- NOTE | 2024-12-14 11:08 | W.ED.PSYCHS ---
HPI - Psych General: Chief Complaint: Psychiatric Symptoms Stated Complaint: BEAHVIORAL Time Seen by Provider: 12/14/24 11:00 Source: patient and EMS Mode of arrival: EMS Limitations: no limitations History of Present Illness: 54-year-old female with a history of schizophrenia brought in by EMS for acute psychosis. Per EMS she had not been taking her meds states that she had let goats into her house yesterday patient here has flight of ideas and is paranoid. They state that she was hiding in the attic and took them 2 hours to get her to be able to come. She has had previous psych admissions Related Data Home Medications ?Medication ?Instructions ?Recorded ?Confirmed celecoxib 100 mg capsule 100 mg PO DAILY 08/30/24 12/14/24 conjugated estrogens 0.45 mg 0.45 mg PO DAILY 08/30/24 12/14/24 tablet (Premarin) cyanocobalamin (vitamin B-12) 1,000 mcg SUBCUT Q30D 08/30/24 12/14/24 1,000 mcg/mL injection solution paliperidone 3 mg tablet,extended 3 mg PO DAILY 12/14/24 12/14/24 release 24 hr quetiapine 25 mg tablet 25 mg PO BID 12/14/24 12/14/24 topiramate 25 mg tablet 25 mg PO BID 12/14/24 12/14/24 Previous Rx's ?Medication ?Instructions ?Recorded hydroxyzine pamoate 25 mg capsule 50 mg (2 x 25 mg) PO Q6H PRN 09/05/24 Anxiety 30 days #120 caps lisinopril 10 mg tablet 10 mg PO DAILY 30 days #30 tabs 09/05/24 bupropion HCl 150 mg 24 hr tablet, 150 mg PO DAILY 90 days #90 tabs 10/27/24 extended release trazodone 50 mg tablet 50 mg PO BEDTIME PRN Sleep 90 days 10/27/24 #90 tabs Allergies Allergy/AdvReac Type Severity Reaction Status Date / Time lithium Allergy Unknown Verified 10/27/24 14:07 [facility] PFSH: Medical History (Updated 12/14/24 @ 11:29 by Reji Lynn MD) Psychiatric care Social History Smoking and tobacco/nicotine status: current every day tobacco/nicotine user Physical Exam Const: COMMON NORMALS: no acute distress, patient oriented x3 and healthy appearing HENMT: COMMON NORMALS: normocephalic and atraumatic HEAD & SCALP: normocephalic and atraumatic Eye: COMMON NORMALS: conjunctivae normal CONJUNCTIVA: Yes conjunctivae normal Neck/C-Spine: COMMON NORMALS: full ROM and supple Chest: COMMONS NORMALS: normal inspection of the chest Resp: COMMON NORMALS: normal respiratory effort, No retractions, No use of accessory muscles and clear to auscultation bilaterally AUSCULTATION: clear to auscultation bilaterally Cardio: COMMON NORMALS: regular rate, regular rhythm and No murmurs present (Cardio) RATE: regular rate RHYTHM: regular rhythm Extremity: COMMON NORMALS: normal to inspection and full ROM Neuro: COMMON NORMALS: patient oriented x3, moves all extremities and no focal motor deficits Psych: ATTITUDE: Yes bizarre SPEECH: Yes excessive THOUGHT PROCESS: Illogical thought process present Skin: COMMON NORMALS: no rashes or lesions noted and no wounds GENERAL SKIN EXAM: no rashes or lesions noted Course Vital Signs: Vital signs: Vital Signs Temperature 98.3 F 12/14/24 11:08 Pulse Rate 105 H 12/14/24 11:08 Respiratory Rate 20 H 12/14/24 11:08 Blood Pressure 174/109 12/14/24 11:08 Pulse Oximetry 98 12/14/24 11:08 Oxygen Delivery Me thod Room Air 12/14/24 11:08 [facility] - Psych Medical Decision Making Patient presents with acute psychosis I did place her on a 96-hour hold she is acutely psychotic and a harm to herself. Patient here blood work showed no acute abnormalities with slight elevated and her white count is likely stress reaction she has no signs of infection here. She is medically cleared I spoke to Dr. Monroy of psych and will admit to the [facility] at this time on a 96-hour hold Medical Records I reviewed the patient's medical records. Lab Data I reviewed the patient's lab results. 12/14/24 11:58 12/14/24 11:58 Laboratory Results Urine Opiates Screen Negative ng/mL (Negative) 12/14/24 11:04 Ur Barbiturates Screen Negative ng/mL (Negative) 12/14/24 11:04 Ur Phencyclidine Scrn Negative ng/mL (Negative) 12/14/24 11:04 Ur Amphetamines Screen Negative ng/mL (Negative) 12/14/24 11:04 U Benzodiazepines Scrn Negative ng/mL (Negative) 12/14/24 11:04 Urine Cocaine Screen Negative ng/mL (Negative) 12/14/24 11:04 U Marijuana (THC) Screen Positive ng/mL (Negative) H 12/14/24 11:04 No radiology studies performed this visit Discharge Plan Discharge Patient Disposition: Admitted As Inpatient Admit Provider: Nicholas Monroy Clinical Impression: Acute psychosis Condition: Stable Coding Level of Care Code ED Office Clerk Assistant for Joana Sood
[2024-12-14 11:37] LABS: PCP Screen Urine Negative (Negative)
--- NOTE | 2024-12-14 11:39 | PC.NURSE ---
Involuntary 96 hour hold rights read and reviewed with patient. Patient verbalized understandings and copy of rights given to patient. This nurse and Traci bush dressed patient out in green paper scrubs and placed all belongings in locker.
[2024-12-14 12:08] LABS: Hematocrit 44.2 % (36-47); Hemoglobin 14.40 g/dL (11.27-16.99); Mean Corpuscular HGB Conc 32.6 g/dL (30-55); Mean Corpuscular Hemoglobin 29.5 pg (27-33); Mean Corpuscular Volume 90.6 fl (85-98); Nucleated Red Blood Cells % 0 %; Platelet Count 335 10^3/cmm (157-399); Red Blood Count 4.88 10^6/uL (3.85-5.65); White Blood Count 15.28 10^3/uL (3.29-11.43)
[2024-12-14 12:27] LABS: Alanine Aminotransferase 18 U/L (0-33); Albumin Level 4.4 g/dL (3.5-5.2); Alkaline Phosphatase 142 U/L (35-105); Anion Gap 19.8 (5-19); Aspartate Amino Transferase 15 U/L (0-32); Blood Urea Nitrogen 11 mg/dL (6-20); Calcium 9.8 mg/dL (8.5-10.5); Carbon Dioxide 19 mmol/L (22-29); Chloride 107 mmol/L (98-107); Globulin 3.2 g/dL (1.3-4.6); Glucose 125 mg/dL (65-115); Osmolality Calculated 295 mOsm/kg (285-295); Potassium 3.8 mmol/L (3.5-5.1); Sodium 142 mmol/L (136-145); Total Protein 7.6 g/dL (6.6-8.7)
[2024-12-14 12:36] LABS: Acetaminophen < 5.0 ug/mL (10-30); Alcohol Level < 10 mg/dL (0-10); Salicylate < 0.3 mg/dL (3-10)
[2024-12-14 12:49] VITALS: BP 161/95; PULSE 100; RESP 17; TEMP 36.6; O2SAT 98
--- NOTE | 2024-12-14 12:53 | PC.PHAR ---
Addendum entered by Salma Gibbs 12/14/24 12:56: Pt states she will tell me what strength her Hydroxyzine is if I look up the pill and tell her what color they are. I explained it is a capsule and it is 2 tone green. She then, stated she takes it. Original Note: Pt verified she takes all the medications on her list.Several of them have last fill dates of August. Pt states Quetiapine 25mg, Topiramate 25mg and Paliperidone ER 3mg cause the universe to communicate with her so she tries not to take them unless she needs to.
[2024-12-14 14:00] VITALS: BP 158/90; PULSE 99; RESP 16; TEMP 36.6; O2SAT 99
[2024-12-14 22:00] VITALS: BP 164/98; PULSE 94; RESP 18; TEMP 37; O2SAT 99
[2024-12-15 06:00] VITALS: BP 163/89; PULSE 77; RESP 17; TEMP 36.7; O2SAT 97
[2024-12-15] MEDS: cetylpyridinium Lozenge 1 EACH MUCOUS MEM ×4 (09:15→20:16)
--- NOTE | 2024-12-15 10:11 | W.PM.NPUH&PS ---
Providers/Chief Complaint Admitting Physician: Nicholas Monroy MD Primary Care Provider: ZANDER Zelaya Chief Complaint: BEAHVIORAL HPI NPU History of Present Illness Rut Bower is a 54 year old female with schizophrenia who is brought to the emergency room stating that the bio digital conversion device had remote control and her across the street and into the hospital. The patient was admitted to the neuropsychiatric unit involuntarily for further evaluation and treatment. She states she has not been on any current medications. The patient reported that the mental health complex has been involved in genocide and she wished to speak to her Senator Wilver Waters regarding this matter. The patient reported that she had been part of a secret governmental program. She reports that she continues to report feel like she is being controlled by others through digital technology. The patient reported no substantiative changes since her last hospitalization. Past Psychiatric History: Makes a comment about being held against her will as a child in a psychiatric hospital where they tested all the SSRIs on her, will not elaborate to any circumstances that led up to the hospitalization or treatment. Has been hospitalized as an adult at [facility] 3 times within a year, when asked what led up to her hospitalization she is unable to answer. When asked if she felt if hospitalization was helpful, she states never being held against her will is helpful . Previous trial of medications include: Bupropion, hydroxyzine, trazodone, paliperidone, quetiapine, Abilify. Family History: Is unwilling to discuss family history. Past Medical History: Per review of the chart there is a history of hypertension. Does briefly state she has fractured her left humerus, his stated is not operable. Unable to obtain any kind of surgical history. Substance Use History: Been willing to discuss any kind of substance use history. Per review of chart there is a history of benzodiazepine abuse, cannabis use, possible methamphetamine use. Social History: Lives in [place] with her . Moved here from [place] in December 2020. Per reviewing records she grew up in [place] with her mother, has 1 sibling. Current medications: none taken but reported to be Celebrex 100 mg daily, B12, lisinopril 10 mg daily, paliperidone 3 mg daily, Excerpt from NPU discharge from 09/05/24 below: MHE SOB Brief History: History of Present Illness Rut Bower is a 54 year old female who was presented to the emergency department with the following report: Chief Complaint: Psychiatric Symptoms Stated Complaint: MHE SOB Time Seen by Provider: 08/30/24 03:02 History of Present Illness: Patient presents with altered mental status and disorganized thinking. Patient reports hurting myself and states I think I've already . Patient describes olfactory hallucinations, specifically smelling weird frankincense and visual hallucinations of fire fall. Patient confirms taking prescribed medications but appears to have difficulty recalling medication names, stating I don't have any more. Not thinking of them all. Patient has history of psychiatric hospitalization but is unable to recall specific dates, stating I don't even remember the date... this year or last year... I don't know. Patient is requesting antibiotics, though the indication for this request is unclear in the context of the presentation. She was admitted to the neuropsychiatric unit for definitive treatment of those issues. She is known to [facility] through past psychiatric care with only inpatient services other than crisis. An excerpt of her last discharge summary is included below for context and the fact that there have been no substantive changes. She presented with a UDS positive for cannabis and benzodiazepines of the benzodiazepines might be iatrogenic from the emergency department. She presents today reporting that she is somewhat unclear about the events leading up to her getting here. She reports that she thinks she was staying at a friend's house but is not exactly sure. She did endorse being off of her medication and knowing that she needs to get them restarted. However she cannot remember her medications and we discussed the risks, benefits and alternatives of this freelance copywriter reviewing her chart and identifying past medications that were effective in getting those restarted. She reports that she knows she needs to be back on her medication and be in treatment. We discussed getting collateral information and understanding her situation better prior to making an informed decision about what we should do and what resources she needs. Per her 08/21/2023 [facility] inpatient psychiatric discharge summary: Discharge Diagnosis (1) Acute psychosis: Status: Acute Reason for Visit Reason for Visit: mhe. hallucinations Brief History: History of Present Illness Rut Bower is a 53 year old female who presents to the emergency department with the following report: Chief Complaint: Psychiatric Symptoms Stated Complaint: mhe. hallucinations Time Seen by Provider: 08/10/23 10:35 Source: patient Mode of arrival: EMS History of Present Illness: 53-year-old female brought in by EMS was bizarre tangential paranoid thoughts. She states that people are racing her brain and that she has not been right since she was recently hospitalized given me that was made from humans and possums and her stools have been white ever since. She was recently hospitalized here was discharged home on Invega 6 mg daily she tells me she stopped taking it because she did not like the way it made her feel. She last took it 1 to 2 days ago. She denies use of any drugs or alcohol. She denies any suicidal or homicidal ideation. She is brought in by EMS after she had evidently barricaded herself into a neighbor's home while enforcement had come gotten her out when EMS arrived they had a handcuffed to the front rail of the home. While she had continued to have bizarre tangential thoughts she was not combative with EMS crew was not combative on arrival here did not require any medications or restraints. Context: not taking psychiatric medications Associated symptoms: Reports delusions; Deny homicidal ideation or suicidal ideation Treatments prior to arrival: none She was admitted to the neuropsychiatric unit for definitive treatment of those issues. She is known to this freelance copywriter through an admission at the beginning of the month. She was discharged with reports of psychosis but limited ability to force medication. An excerpt of the discharge summary is included below for context and the fact that she is a resistant and incapable historian. She presented refusing all labs, refusing all medications, mostly refusing communication and denying any issues. She presents today speaking strangely twice and then at her last admission talking about the fact that she was almost killed here on the last visit but when she went home she smoked weed and that reversed what happened with the pills here. She continued to talk about MK ultra her being the original and only 1. She reports that she does not care if any by believes her not. She talked about people being puppet masters and controlling her. We talked about her being on a hold and wanting to make sure that this time we worked on the underlying issues of her thought disorder but she does not believe she has. Per her 07/29/2023 [facility] inpatient psychiatric discharge summary: PSYCH Brief History: History of Present Illness Rut Bower is a 53 year old female who presented to the emergency department with the following report: Chief Complaint: Psychiatric Symptoms Stated Complaint: PSYCH Time Seen by Provider: 07/23/23 14:45 Source: patient and EMS Mode of arrival: EMS Limitations: no limitations History of Present Illness: 53-year-old female who is here with EMS for concerns of acute psychosis. Patient here is delusional she is talking about the government injecting people in monitoring him and believes she is being monitored she has a flight of ideas she denies SI or HI denies any headaches. Associated symptoms: Reports auditory hallucinations. She was admitted to the neuropsychiatric unit for definitive treatment of those issues. Her screen was positive for cannabis and benzodiazepines. She was reportedly floridly psychotic per staff reports and direct observation. She presented today reporting: Chief complaint Patient believes they were forced into programs and that biological weapons were created inside them. Reports feeling controlled and manipulated. History of the present complaint The patient reported having been admitted to psychiatric hospitals multiple times in the past. They expressed a belief that they were unique, being the only person forced into programs, specifically referring to a [facility] program . The patient claimed that during previous hospitalizations, they were not treated for any condition but were instead used for the creation of biological weapons. They expressed a strong eversion to being controlled by others. The patient reported a history of experiencing what they referred to as Duetecs , which they described as periods of insomnia lasting for days. They attributed these episodes to external influences such as satellites and underground wounds, and compared the feeling to the effects of methamphetamine. However, they denied current use of methamphetamine and stated that the only time they had used it was when they were put on SSRIs in the 80s. The patient identified themselves with the term MKUltra , which they described as a designation for a person born with the ability to have the soul to start the earth . They did not provide further clarification on this belief. The patient expressed a strong resistance to taking any medication, stating that medication had been used to control them throughout their life. They asserted their capability to control themselves without the need for drugs. The patient was aware of being on a 72-hour hold, which they insisted was the legal limit in their state. They expressed a strong desire not to have this period extended and became upset when the possibility was mentioned. They were informed that a doctor would be visiting them the following day. Mental health history Patient has been to a psychiatric hospital multiple times. Reports being part of a program called [employer] [facility] where they were forced into programs. Believes they were used for creating biological weapons. No specific mental health diagnosis or treatment mentioned. Hospital Course Hospital Course She slowly acclimated to the individual, group and milieu therapies provided. She presented with resumption of psychosis off of medication. She did not feel the Abilify was working and she was willing to switch back onto Invega. Additionally we started Wellbutrin XL for depression and allowed her to have Vistaril and trazodone for anxiety and sleep respectively as needed. She was positive for benzodiazepines and cannabis as she has been in the past 2 admissions. These medications were started without incident. The absence of the drugs of abuse, the continuation of her home medications and the addition of Invega, Wellbutrin and her as needed medications as well as being in the treatment milieu led to a positive response. She tolerated her medications and showed significant improvement during her stay. She worked with the social work team for appropriate outpatient follow-up and aftercare. She was able to contract for safety outside hospital prior to discharge. During the hospitalization, patient had routine laboratory studies which were within normal limits except for few outliers. Additionally there was a general medical evaluation which was also within normal limits and revealed no new acute processes. Discharge Summary: At the time of discharge, she denied psychosis or lethality. Her psychosis was resolving. Mood and anxiety were well managed. Patient endorsed a plan to avoid all drugs of abuse and follow-up with the aftercare recommendations of the treatment team. Patient was evaluated and deemed to be absent credible lethality, and obtained the maximum benefit from inpatient hospitalization, so was discharged Meds NPU Home Medications ?Medication ?Instructions ?Recorded ?Confirmed ?Last Taken ?Type celecoxib 100 mg capsule 100 mg PO DAILY 08/30/24 12/14/24 Unknown History conjugated estrogens 0.45 mg 0.45 mg PO DAILY 08/30/24 12/14/24 Unknown History tablet (Premarin) cyanocobalamin (vitamin B-12) 1,000 mcg SUBCUT Q30D 08/30/24 12/14/24 Unknown History 1,000 mcg/mL injection solution hydroxyzine pamoate 25 mg capsule 50 mg (2 x 25 mg) PO Q6H PRN 09/05/24 12/14/24 Unknown Rx Anxiety 30 days #120 caps lisinopril 10 mg tablet 10 mg PO DAILY 30 days #30 tabs 09/05/24 12/14/24 Unknown Rx bupropion HCl 150 mg 24 hr tablet, 150 mg PO DAILY 90 days #90 tabs 10/27/24 12/14/24 Unknown Rx extended release trazodone 50 mg tablet 50 mg PO BEDTIME PRN Sleep 90 days 10/27/24 12/14/24 Unknown Rx #90 tabs paliperidone 3 mg tablet,extended 3 mg PO DAILY 12/14/24 12/14/24 Unknown History release 24 hr quetiapine 25 mg tablet 25 mg PO BID 12/14/24 12/14/24 Unknown History topiramate 25 mg tablet 25 mg PO BID 12/14/24 12/14/24 Unknown History Allergies Allergy/AdvReac Type Severity Reaction Status Date / Time lithium Allergy Unknown Verified 10/27/24 14:07 PFS NPU PFSH: Medical History (Updated 12/14/24 @ 11:29 by Reji Lynn MD) Psychiatric care Social History Smoking and tobacco/nicotine status: current every day tobacco/nicotine user Mental Status Exam MSE Comments: This is an obese white female in hospital scrubs with limited grooming and eye contact. No abnormal movements except for psychomotor agitation. She was minimally cooperative with exam in moderate distress. Her speech was monotone in quality and decreased in rate and increased in volume. Her thought process was linear. Thought content: Patient denied suicidal or homicidal ideation. She reiterated the desire to speak with her Senator. There was evidence of bizarre delusions of being controlled by a Biodigital converter She denied any auditory or visual hallucinations and did not appear to be responding to internal stimuli. There was prominent ideas of reference and significant paranoia. Attention and concentration were limited and memory appeared mostly reliable but none were formally tested. She is alert and oriented to person and place. Her insight, judgment and impulse control are all impaired. Vitals/I&O/Wt Last Vital Signs Temp 98.1 F 12/15/24 06:00 Pulse 77 12/15/24 06:00 Resp 17 12/15/24 06:00 BP 163/89 12/15/24 06:00 Pulse Ox 97 12/15/24 06:00 O2 Del Method Room Air 12/15/24 06:00 Data NPU 12/14/24 11:58 12/14/24 11:58 A&P Assessment and plan 1. Schizophrenia, unspecified type: 2. Acute psychosis: Plan: This is a 54-year-old white female with a history of schizophrenia who has been hospitalized here previously most recently in 3 months ago now presenting with paranoia and noncompliant with any medications. 1. Will attempt to gather collateral information. 2. Continue every 15 minute checks for safety. 3. Encourage individual, group and milieu therapy. 4. Encourage sober living treatment after discharge at the highest level care to which she is willing to commit as we explore whether recent addictive behavior played a role in this presentation. Patient positive for THC on UDS. 5. Will restart invega 6mg at night. 6. Patient remains on 96 hour hold at this time. PDMP PDMP Reviewed: Not Reviewed Involuntary Hold Information Hold Status: Legal Status: 96 Hour Hold Date/Time Hold Expires: 96^12/20/24@1118 96 Hour Hold: 96 Hour Involuntary Admission: Yes Attestations NPU Medical Necessity Statement*: Inpatient hospitalization is medically necessary and the clinically appropriate intervention at this time. We will monitor/initiate medications and make changes as indicated. She will be in the hospital for over 2 midnights. Her likely length of stay 4-6 days. Coding Level of Care Code Acute Code for Chg Fwd Diagnoses Schizophrenia, unspecified type F20.9 Schizophrenia type: unspecified Acute psychosis F23
--- NOTE | 2024-12-15 11:25 | PC.NURSE ---
Pt refused to take lisinopril 10mg tab, that was ordered. Pt stated that reason being that the government needs to prove that she needs to take this medication.
--- NOTE | 2024-12-15 11:51 | PC.NURSE ---
Pt stated that she does have a home to live in, but needs her removed from it. Pt stated that she no longer has a vehicle and doesn't trust herself to drive because of her visions, she doesn't trust that she would be driving into something real or just an [place].
[2024-12-15 14:00] VITALS: BP 162/102; PULSE 93; RESP 17; TEMP 36.8; O2SAT 98
[2024-12-15 20:21] VITALS: BP 183/95; PULSE 73; RESP 18; TEMP 36.7; O2SAT 99
--- NOTE | 2024-12-15 21:31 | PC.NURSE ---
well logging captain nursing assessment pt asked why this nurse needed to do a physical assessment when she was here for her head. this nurse attempted to educate that we need to continually make sure patients are physically assessed for issues, pt continually interrupted me pointing at her civil half-way paper saying 'you've kidnapped me and this ain't right' 'you can't force me to take meds' 'why do you need to listen to my belly and lungs i dont need that' this nurse asked pt if she was refusing the assessment and pt stated yes, i am.
[2024-12-16 06:00] VITALS: BP 118/64; PULSE 76; RESP 18; TEMP 36.8; O2SAT 99
--- NOTE | 2024-12-16 08:39 | PC.NURSE ---
Pt. refuses medications this am stated she was not going to take any. Pt. came up to window and said would you like to know how high school shooters are made? Pt. is very rude, intrusive, demanding with negative attitude.
--- NOTE | 2024-12-16 10:16 | PC.NURSE ---
refused all medications
[2024-12-16] MEDS: cetylpyridinium Lozenge 1 EACH MUCOUS MEM (12:12)
[2024-12-16 14:00] VITALS: BP 120/66; PULSE 77; RESP 18
--- NOTE | 2024-12-16 15:27 | P.NPUPN_ITS ---
Subjective NPU 2 Subjective: 54-year-old female with schizophrenia. The patient had continued to refuse to take any medications. She had stated that she needed to be able to leave here and stated that she needed to have an eye appointment as she had forgotten her glasses. She had stated that she is her . She continued to report that she was part of a government plan beginning when she was kidnapped and sent to [place] [id number]. The patient had reported having special abilities. Patient had continued to engage in significant self talk on the unit and appeared irritable and agitated. She did not require any as needed medications. The patient had complained of some headaches. She had refused her Invega oral. She requested a meeting with a Senator from [place]. Mental Status Exam 2 MSE Comments: This is an obese white female in hospital scrubs with limited grooming and eye contact. No abnormal movements except for psychomotor agitation. She was minimally cooperative with exam in moderate distress. Her speech was monotone in quality and decreased in rate and increased in volume. Her thought process was linear. Thought content: Patient denied suicidal or homicidal ideation. She reiterated the desire to speak with her Senator. There was evidence of bizarre delusions of being controlled by a Biodigital converter She denied any auditory or visual hallucinations and did not appear to be responding to internal stimuli. There was prominent ideas of reference and significant paranoia. Attention and concentration were limited and memory appeared mostly reliable but none were formally tested. She is alert and oriented to person and place. Her insight, judgment and impulse control are all impaired. Vitals/I&O/Wt Last Vital Signs Temp 98.2 F 12/16/24 06:00 Pulse 77 12/16/24 14:00 Resp 18 12/16/24 14:00 BP 120/66 12/16/24 14:00 Pulse Ox 99 12/16/24 06:00 O2 Del Method Room Air 12/16/24 06:00 Data NPU 12/14/24 11:58 12/14/24 11:58 A&P Assessment and plan 1. Schizophrenia, unspecified type: 2. Acute psychosis: Plan: This is a 54-year-old white female with a history of schizophrenia who has been hospitalized here previously most recently in 3 months ago now presenting with paranoia and noncompliant with any medications. 1. Will attempt to gather collateral information. 2. Continue every 15 minute checks for safety. 3. Encourage individual, group and milieu therapy. 4. Encourage sober living treatment after discharge at the highest level care to which she is willing to commit as we explore whether recent addictive behavior played a role in this presentation. Patient positive for THC on UDS. 5. Continue invega 6mg at night. 6. Patient remains on 96 hour hold at this time, 21 day hold filed. PDMP PDMP Reviewed: Not Reviewed Involuntary Hold Information 2 Hold Status: Legal Status: 96 Hour Hold Date/Time Hold Expires: 12/20/24 @ 11:18 96 Hour Hold: 96 Hour Involuntary Admission: Yes Attestations NPU 2 Medical Necessity Statement*: Inpatient hospitalization is medically necessary and the clinically appropriate intervention at this time. We will monitor/initiate medications and make changes as indicated. Her likely length of stay 7-10 days. Coding Level of Care Code Acute Code for Chg Fwd Diagnoses Schizophrenia, unspecified type F20.9 Schizophrenia type: unspecified Acute psychosis F23
[2024-12-16 19:56] VITALS: BP 132/68; PULSE 73; RESP 15; TEMP 36.7; O2SAT 98
[2024-12-17 06:00] VITALS: BP 137/61; PULSE 67; RESP 15; TEMP 36.7; O2SAT 96
--- NOTE | 2024-12-17 11:15 | P.NPUPN_ITS ---
Subjective NPU 2 Subjective: 54-year-old female with schizophrenia. The patient continued to refuse to take any psychotropic medications. She reported that she was part of a area project as a child and stated that she continued to do research and to be researched on. She had again stated that the concentration camps in [place] were set up by [employer] and that she had been healed through the Internet through a biodigital conversion device. She continued to pace the hallway. She had reported having problems with sleep. She had continued to state that the reason that she was here was simply in order to proceed with getting a divorce from her . She had reported that the intramuscular medications had made her gain weight and had been toxic to her body. Mental Status Exam 2 MSE Comments: This is an obese, white female in hospital scrubs with poor grooming and fair eye contact. No abnormal involuntary motor movements except for mild psychomotor agitation. She was minimally cooperative with exam and appeared in moderate distress. Her speech was monotone in quality and decreased in rate and normal in volume. Her thought process was linear. Thought content: Patient denied suicidal or homicidal ideation. There was evidence of bizarre delusions of being controlled by a Biodigital converter She denied any auditory or visual hallucinations and did not appear to be responding to internal stimuli. There was prominent ideas of reference and significant paranoia. Attention and concentration were limited and memory appeared mostly reliable but none were formally tested. She is alert and oriented to person and place. Her insight, judgment and impulse control are all impaired. Vitals/I&O/Wt Last Vital Signs Temp 98.0 F 12/17/24 06:00 Pulse 67 12/17/24 06:00 Resp 15 12/17/24 06:00 BP 137/61 12/17/24 06:00 Pulse Ox 96 12/17/24 06:00 O2 Del Method Room Air 12/17/24 06:00 Data NPU 12/14/24 11:58 12/14/24 11:58 A&P Assessment and plan 1. Schizophrenia, unspecified type: 2. Acute psychosis: Plan: This is a 54-year-old white female with a history of schizophrenia who has been hospitalized here previously most recently in 3 months ago now presenting with paranoia and noncompliant with any medications. 1. Will attempt to gather collateral information. 2. Continue every 15 minute checks for safety. 3. Encourage individual, group and milieu therapy. 4. Encourage sober living treatment after discharge at the highest level care to which she is willing to commit as we explore whether recent addictive behavior played a role in this presentation. Patient positive for THC on UDS. 5. Continue invega 6mg at night. 6. Patient remains on 96 hour hold at this time, 21 day hold filed. PDMP PDMP Reviewed: Not Reviewed Involuntary Hold Information 2 Hold Status: Legal Status: 96 Hour Hold Date/Time Hold Expires: 12/20/24 @ 11:18 96 Hour Hold: 96 Hour Involuntary Admission: Yes Attestations NPU 2 Medical Necessity Statement*: Inpatient hospitalization is medically necessary and the clinically appropriate intervention at this time. We will monitor/initiate medications and make changes as indicated. Her likely length of stay 7-10 days. Coding Level of Care Code Acute Code for g Fwd Diagnoses Schizophrenia, unspecified type F20.9 Schizophrenia type: unspecified Acute psychosis F23
[2024-12-17 13:35] VITALS: BP 130/76; PULSE 68; RESP 16; TEMP 36.6; O2SAT 98
[2024-12-17] MEDS: PREMARIN 0.45 MG PO (15:59)
[2024-12-17 20:15] VITALS: BP 142/83; PULSE 71; RESP 18; TEMP 36.6; O2SAT 100
[2024-12-18 06:00] VITALS: PULSE 75; RESP 16; TEMP 36.6; O2SAT 100
[2024-12-18] MEDS: PREMARIN 0.45 MG PO (08:08)
--- NOTE | 2024-12-18 13:07 | P.NPUPN_ITS ---
Subjective NPU 2 Subjective: 54-year-old female with schizophrenia ad mitted with bizarre behavior. The patient continued to appear focused on bizarre ideas including being healed through a bio digital converter through the Internet. She had continued to report that she was part of an experiment funded and run by [employer] when she was in a concentration camp in [place] as a child. Patient had a visit with her and after receiving some clothing she had apparently announced that she was going to get a divorce. She had continued to refuse any medications including her antihypertensive and her antipsychotic agent. Mental Status Exam 2 MSE Comments: This is an obese, white female in hospital scrubs with poor grooming and fair eye contact. No abnormal involuntary motor movements except for mild psychomotor agitation. She was minimally cooperative with exam and appeared in moderate distress. Her speech was monotone in quality and decreased in rate and normal in volume. Her thought process was linear. Thought content: Patient denied suicidal or homicidal ideation. There was evidence of bizarre delusions of being controlled by a Biodigital converter and having been part of a special government program through [place] [id number]. She denied any auditory or visual hallucinations and did not appear to be responding to internal stimuli. There was prominent ideas of reference and significant paranoia. Attention and concentration were limited and memory appeared mostly reliable but none were formally tested. She is alert and oriented to person and place. Her insight, judgment and impulse control are all impaired. Vitals/I&O/Wt Last Vital Signs Temp 98 F 12/18/24 06:00 Pulse 75 12/18/24 06:00 Resp 16 12/18/24 06:00 BP 142/83 12/17/24 20:15 Pulse Ox 100 12/18/24 06:00 O2 Del Method Room Air 12/18/24 06:00 Weight last 48 hrs Weight 98.894 kg Data NPU 12/14/24 11:58 12/14/24 11:58 A&P Assessment and plan 1. Schizophrenia, unspecified type: 2. Acute psychosis: Plan: This is a 54-year-old white female with a history of schizophrenia who has been hospitalized here previously most recently in 3 months ago now presenting with paranoia and noncompliant with any medications. 1. Will attempt to gather collateral information. 2. Continue every 15 minute checks for safety. 3. Encourage individual, group and milieu therapy. 4. Encourage sober living treatment after discharge at the highest level care to which she is willing to commit as we explore whether recent addictive behavior played a role in this presentation. Patient positive for THC on UDS. 5. Patient continues to refuse invega 6mg at night. 6. Patient remains on 96 hour hold at this time, 21 day hold filed. PDMP PDMP Reviewed: Not Reviewed Involuntary Hold Information 2 Hold Status: Legal Status: 96 Hour Hold Date/Time Hold Expires: 12/20/24 @ 11:18 96 Hour Hold: 96 Hour Involuntary Admission: Yes Attestations NPU 2 Medical Necessity Statement*: Inpatient hospitalization is medically necessary and the clinically appropriate intervention at this time. We will monitor/initiate medications and make changes as indicated. Her likely length of stay 7-10 days. Coding Level of Care Code Acute Code for [facility] Fwd Diagnoses Schizophrenia, unspecified type F20.9 Schizophrenia type: unspecified Acute psychosis F23
[2024-12-18 13:38] VITALS: BP 158/77; PULSE 58; RESP 16; TEMP 36.4; O2SAT 100
[2024-12-18 20:53] VITALS: BP 125/68; PULSE 60; RESP 20; TEMP 36.7; O2SAT 97
[2024-12-19 06:00] VITALS: BP 167/89; PULSE 60; RESP 16; TEMP 36.8; O2SAT 99
[2024-12-19] MEDS: PREMARIN 0.45 MG PO (08:16)
[2024-12-19 14:00] VITALS: BP 135/87; PULSE 64; RESP 16; TEMP 37.1; O2SAT 95
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
--- NOTE | 2024-12-19 15:24 | PC.NURSE ---
Pt.'s visited today and they got into an argument. The walked out very quickly and the pt. followed and the two was arguing loudly through the door and the window. Pt. stated she would stop arguing with him and he agreed to come back in and visit. Shortly later the two started arguing again and the was told not to visit again until the pt. was better. Security had to be called to come down to NPU.
--- NOTE | 2024-12-19 15:46 | PC.NURSE ---
Dr. Knowles said should not visit pt. for a while, that it is ok for them to talk on the phone, but no in person visits until the DrJostin Ok's it.
--- NOTE | 2024-12-19 21:04 | PC.NURSE ---
MED REFUSAL PATIENT REFUSED HER 2100 DOSE OF INVEGA 6MG THIS NIGHT. PATIENT STATED THEY TRIED ME ON THAT ONE OTHER TIME I WAS HERE, AND IT ALMOST GAVE ME A HEART ATTACK. IF THE AFFECTS SAY ANYTHING ABOUT WEIGHT GAIN OR HEART AFFECTS, I WILL NOT TAKE IT! REFUSAL NOTED. MADE AWARE.
[2024-12-19 21:13] VITALS: BP 142/88; PULSE 65; RESP 18; TEMP 36.4; O2SAT 98
[2024-12-20 05:37] VITALS: BP 129/79; PULSE 60; RESP 17; TEMP 36.7; O2SAT 99
[2024-12-20] MEDS: PREMARIN 0.45 MG PO (08:03)
--- NOTE | 2024-12-20 08:29 | PC.NURSE ---
Pt stated while on a phone call this AM that she would only take Quetiapine in a small dose.
--- NOTE | 2024-12-20 10:46 | PC.NURSE ---
Dr. Knowles gave verbal order for Caplyta 42mg PO QD. Jessica from out pt. pharmacy.
[2024-12-20] MEDS: [UNRECOGNIZED DRUG - OTHER] 1 EACH PO (12:07)
--- NOTE | 2024-12-20 13:51 | P.NPUPN_ITS ---
Subjective NPU 2 Subjective: 54-year-old female with schizophrenia. The patient was admitted due to bizarre thinking and behavior in the home. She had been placed on a 21-day hold after today's court hearing. She had reported that she was willing to consider an alternative and did not wish to consider an intramuscular injection as it had given her significant side effects including weight gain. The patient continued to remain paranoid and continued to discuss all of the issues that she had claimed including having been sent to a secret place to be treated like a guinea pig for some drug trial. She had disagreed with her diagnosis of schizophrenia. She continued to report that she was uncertain as to whether she could return to live with her or whether she needed to file for divorce. The patient had reported that she had felt like a victim. She reported no sleep continuity disruption last night. She had taken her blood pressure medication on advisement from the treatment team. Mental Status Exam 2 MSE Comments: This is an obese, white female in hospital scrubs with poor grooming and fair eye contact. No abnormal involuntary motor movements except for mild psychomotor agitation. She was mildly cooperative with exam and appeared in moderate distress. Her speech was monotone in quality and decreased in rate and normal in volume. Her thought process was linear. Thought content: Patient denied suicidal or homicidal ideation. There was evidence of bizarre delusions of being controlled by the government since childhood. She denied any auditory or visual hallucinations and did not appear to be responding to internal stimuli. There was prominent ideas of reference and significant paranoia. Attention and concentration were limited and memory appeared mostly reliable but none were formally tested. She is alert and oriented to person and place. Her insight, judgment and impulse control are all impaired. Vitals/I&O/Wt Last Vital Signs Temp 98.0 F 12/20/24 05:37 Pulse 60 12/20/24 05:37 Resp 17 12/20/24 05:37 BP 129/79 12/20/24 05:37 Pulse Ox 99 12/20/24 05:37 O2 Del Method Room Air 12/20/24 05:37 Data NPU 12/14/24 11:58 12/14/24 11:58 A&P Assessment and plan 1. Schizophrenia, unspecified type: 2. Acute psychosis: Plan: This is a 54-year-old white female with a history of schizophrenia who has been hospitalized here previously most recently in 3 months ago now presenting with paranoia and noncompliant with any medications. 1. Will attempt to gather collateral information. 2. Continue every 15 minute checks for safety. 3. Encourage individual, group and milieu therapy. 4. Encourage sober living treatment after discharge at the highest level care to which she is willing to commit as we explore whether recent addictive behavior played a role in this presentation. Patient positive for THC on UDS. 5. Start Caplyta 42mg daily. D/C invega oral. 6. Patient now on 21 day hold. PDMP PDMP Reviewed: Not Reviewed Involuntary Hold Information 2 Hold Status: Legal Status: 96 Hour Hold Date/Time Hold Expires: 01/10/2025 96 Hour Hold: 96 Hour Involuntary Admission: Yes Attestations NPU 2 Medical Necessity Statement*: Inpatient hospitalization is medically necessary and the clinically appropriate intervention at this time. We will monitor/initiate medications and make changes as indicated. Her likely length of stay 7-10 days. Coding Level of Care Code Acute Code for [facility] Diagnoses Schizophrenia, unspecified type F20.9 Schizophrenia type: unspecified Acute psychosis F23
[2024-12-20 14:00] VITALS: BP 136/73; PULSE 60; RESP 16; TEMP 36.8; O2SAT 99
--- NOTE | 2024-12-20 14:41 | PC.NURSE ---
Pt.'s called and said his had reported to him that she was started on a new medication today and it made her want to kill herself. Signee informed the that the new medication was given just after 12:00 and that was about 2.5 hrs from when he called. Signee told it was unlikely that the medication would start working that quickly, but signee would inform the DrJostin of this. Signee informed Dr. Knowles of what the had reported. No new orders was given.
--- NOTE | 2024-12-20 17:32 | PC.NURSE ---
Pt. made a comment to MANUFACTURING MAINTENANCE TECHNICIAN how many times do I have to say i am suicidal before anyone believes me . Signee and the other nurses and MANUFACTURING MAINTENANCE TECHNICIAN went to pt.'s room asking if pt. was having SI pt. stated yes, but only because of the medication she was given. Pt. was asked to sit on the bench near nurses station so she could be kept an eye on. Pt. did not want to get out bed stated there was nothing here to kill herself with and she has no plans on acting on these thoughts. Pt. was offered anxiety medication and refused them. Pt. was told if she starts having worse SI or thinks she may act on the thoughts to inform staff immediately, and pt. agreed to do so. Pt. said that the staff was closed minded and Jesús's.
[2024-12-20 19:55] VITALS: BP 99/68; PULSE 67; RESP 18; TEMP 37.1; O2SAT 96
[2024-12-21 05:52] VITALS: BP 137/81; PULSE 72; RESP 17; TEMP 36.6; O2SAT 100
[2024-12-21] MEDS: PREMARIN 0.45 MG PO (08:54)
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
[2024-12-21 14:00] VITALS: BP 111/80; PULSE 75; RESP 17; TEMP 36.9; O2SAT 99
[2024-12-21 20:06] VITALS: BP 118/89; PULSE 64; RESP 18; TEMP 36.4; O2SAT 97
[2024-12-22 06:00] VITALS: BP 110/61; PULSE 53; RESP 17; TEMP 36.7; O2SAT 99
[2024-12-22] MEDS: PREMARIN 0.45 MG PO (08:10)
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
[2024-12-22 14:00] VITALS: BP 124/90; PULSE 74; RESP 16; TEMP 36.9; O2SAT 100
--- NOTE | 2024-12-22 16:45 | PC.NURSE ---
Pt complaining of left shoulder pain, post fracture in August, has not been able to attend physical therapy since being on the unit. Topical cream ordered for pt to aid in pain relief.
[2024-12-22 21:49] VITALS: BP 126/83; PULSE 50; RESP 17; TEMP 37.1; O2SAT 100
[2024-12-23 06:00] VITALS: BP 103/61; PULSE 60; RESP 17; TEMP 36.6; O2SAT 98
[2024-12-23] MEDS: PREMARIN 0.45 MG PO (07:46)
[2024-12-23 14:00] VITALS: BP 114/67; PULSE 78; RESP 16; TEMP 36.8; O2SAT 98
--- NOTE | 2024-12-23 14:22 | P.NPUPN_ITS ---
Subjective NPU 2 Subjective: Patient presented today reporting that things are going okay. She endorsed that she was having a significant headache and was hoping to get something other than Tylenol or ibuprofen. We discussed the possibility of getting a hospitalist consult if the headache continued but that other than maybe some medication with caffeine which is not currently carried in the hospital heavy pain medication for the treatment of headaches is not supported by evidence. We discussed her concerns about the medication started by Dr. Knowles/Alberto and her reporting that 1 there was some concern about possible weight gain but to that she will be charged thousand dollars per shot for the medication. We discussed looking at her insurance and also identifying whether we needed to get her on the indigent program. She denied any other issues with her medication. Mental Status Exam 2 MSE Comments: This is an obese, pale white female in hospital scrubs with poor grooming and fair eye contact. Noteworthy hirsutism. No abnormal involuntary motor movements except for mild psychomotor agitation. She was mildly cooperative with exam and appeared in moderate distress. Her speech was monotone in quality and decreased in rate and normal in volume. Her thought process was linear. Thought content: Patient denied suicidal or homicidal ideation. There was evidence of bizarre delusions of being controlled by the government since childhood. She denied any auditory or visual hallucinations and did not appear to be responding to internal stimuli. There was prominent ideas of reference and significant paranoia. Attention and concentration were limited and memory appeared mostly reliable but none were formally tested. She is alert and oriented to person and place. Her insight, judgment and impulse control are all impaired. Vitals/I&O/Wt Last Vital Signs Temp 97.9 F 12/23/24 06:00 Pulse 60 12/23/24 06:00 Resp 17 12/23/24 06:00 BP 103/61 12/23/24 06:00 Pulse Ox 98 12/23/24 06:00 O2 Del Method Room Air 12/23/24 06:00 Data NPU 12/14/24 11:58 12/14/24 11:58 A&P Assessment and plan 1. Schizophrenia, unspecified type: 2. Acute psychosis: Plan: This is a 54-year-old white female with a history of schizophrenia who has been hospitalized here previously most recently in 3 months ago now presenting with paranoia and noncompliant with any medications. 1. Will attempt to gather collateral information. 2. Continue every 15 minute checks for safety. 3. Encourage individual, group and milieu therapy. 4. Encourage sober living treatment after discharge at the highest level care to which she is willing to commit as we explore whether recent addictive behavior played a role in this presentation. Patient positive for THC on UDS. 5. D/C [facility], will seek medical authorization of abilify Maintena 400mg and Abilify Asumufii 960mg IM today. Initiate Abilify 10mg daily.-Haldol IM 5mg if refusal. Will explore patient is report about medication cost. 6. Patient now on 21 day hold. PDMP PDMP Reviewed: Not Reviewed Involuntary Hold Information 2 Hold Status: Legal Status: 96 Hour Hold Date/Time Hold Expires: 01/10/2025 96 Hour Hold: 96 Hour Involuntary Admission: Yes Attestations NPU 2 Medical Necessity Statement*: Inpatient hospitalization is medically necessary and the clinically appropriate intervention at this time. We will monitor/initiate medications and make changes as indicated. Her likely length of stay 6-9 days. Coding Level of Care Code Acute Code for g Fwd Diagnoses Schizophrenia, unspecified type F20.9 Schizophrenia type: unspecified Acute psychosis F23
[2024-12-23 20:43] VITALS: BP 99/53; PULSE 72; RESP 18; TEMP 36.5; O2SAT 99
[2024-12-24 06:00] VITALS: BP 133/94; PULSE 64; RESP 18; TEMP 36.6; O2SAT 100
[2024-12-24] MEDS: PREMARIN 0.45 MG PO (08:00)
[2024-12-24 14:18] VITALS: BP 116/72; PULSE 64; RESP 18; TEMP 36.8; O2SAT 98
--- NOTE | 2024-12-24 15:35 | P.NPUPN_ITS ---
Subjective NPU 2 Subjective: Patient presented today reporting that she is feeling okay other than being under the weather. She reports that she got some antihistamines yesterday and started feeling better and has identified that what she must have is a sinus infection because with those medications things got much better and so her headache is resolving but she feels like she has got a cold or something that is led to sinus inflammation and congestion. Otherwise she denies any side effects to medication. Mental Status Exam 2 MSE Comments: This is an obese, pale white female in hospital scrubs with poor grooming and fair eye contact. Noteworthy hirsutism. No abnormal involuntary motor movements except for mild psychomotor agitation. She was mildly cooperative with exam and appeared in moderate distress. Her speech was monotone in quality and decreased in rate and normal in volume. Her thought process was linear. Thought content: Patient denied suicidal or homicidal ideation. There was evidence of bizarre delusions of being controlled by the government since childhood. She denied any auditory or visual hallucinations and did not appear to be responding to internal stimuli. There was prominent ideas of reference and significant paranoia. Attention and concentration were limited and memory appeared mostly reliable but none were formally tested. She is alert and oriented to person and place. Her insight, judgment and impulse control are all impaired. Vitals/I&O/Wt Last Vital Signs Temp 98.2 F 12/24/24 14:18 Pulse 64 12/24/24 14:18 Resp 18 12/24/24 14:18 BP 116/72 12/24/24 14:18 Pulse Ox 98 12/24/24 14:18 O2 Del Method Room Air 12/24/24 06:00 Data NPU 12/14/24 11:58 12/14/24 11:58 A&P Assessment and plan 1. Schizophrenia, unspecified type: 2. Acute psychosis: Plan: This is a 54-year-old white female with a history of schizophrenia who has been hospitalized here previously most recently in 3 months ago now presenting with paranoia and noncompliant with any medications. 1. Will attempt to gather collateral information. 2. Continue every 15 minute checks for safety. 3. Encourage individual, group and milieu therapy. 4. Encourage sober living treatment after discharge at the highest level care to which she is willing to commit as we explore whether recent addictive behavior played a role in this presentation. Patient positive for THC on UDS. 5. D/C [facility], will seek medical authorization of abilify Maintena 400mg and Abilify Asumufii 960mg IM today. Initiate Abilify 10mg daily.-Haldol IM 5mg if refusal. Will explore patient is report about medication cost. 6. Patient now on 21 day hold. PDMP PDMP Reviewed: Not Reviewed Involuntary Hold Information 2 Hold Status: Legal Status: 96 Hour Hold Date/Time Hold Expires: 01/10/2025 96 Hour Hold: 96 Hour Involuntary Admission: Yes Attestations NPU 2 Medical Necessity Statement*: Inpatient hospitalization is medically necessary and the clinically appropriate intervention at this time. We will monitor/initiate medications and make changes as indicated. Her likely length of stay 5-8 days. Coding Level of Care Code Acute Code for Chg Fwd Diagnoses Schizophrenia, unspecified type F20.9 Schizophrenia type: unspecified Acute psychosis F23
[2024-12-24 20:18] VITALS: BP 119/76; PULSE 82; RESP 17; TEMP 36.4; O2SAT 98
[2024-12-25 05:21] VITALS: BP 124/79; PULSE 77; RESP 17; TEMP 36.8; O2SAT 99
[2024-12-25] MEDS: blistex lip oint 7 gm Tube 1 APPLIC TOPICAL (06:57)
[2024-12-25] MEDS: PREMARIN 0.45 MG PO (08:08)
[2024-12-25 14:00] VITALS: BP 125/85; PULSE 67; RESP 16; TEMP 36.6; O2SAT 100
--- NOTE | 2024-12-25 17:23 | P.NPUPN_ITS ---
Subjective NPU 2 Subjective: Patient presented today reporting she is going okay. We discussed that we would try to alleviate her concerns about the Abilify injection by working with the social work team tomorrow to look at the indigent program as well as have nursing identified whether there was coverage or not for the medication. She continues to report that the Abilify was fine medication but she blames it for significant weight gain. We discussed however people often reporting things like that but that she is at an age where her continued decrease in activity and lack of regular exercise could continue to put pounds on like the rest of [place] and that it is hard to identify the medication as the source when most people are doing this without the assistance of medication. She denied any side effects to her medication. Mental Status Exam 2 MSE Comments: This is an obese, pale white female in hospital scrubs with poor grooming and fair eye contact. Noteworthy hirsutism. No abnormal involuntary motor movements except for mild psychomotor agitation. She was mildly cooperative with exam and appeared in mild to moderate distress. Her speech was monotone in quality and decreased in rate and normal in volume. Her thought process was linear. Thought content: Patient denied suicidal or homicidal ideation. There was evidence of bizarre delusions of being controlled by the government since childhood. She denied any auditory or visual hallucinations and did not appear to be responding to internal stimuli. There was prominent ideas of reference and significant paranoia. Attention and concentration were limited and memory appeared mostly reliable but none were formally tested. She is alert and oriented to person and place. Her insight, judgment and impulse control are all impaired. Vitals/I&O/Wt Last Vital Signs Temp 97.6 F 12/25/24 20:46 Pulse 76 12/25/24 20:46 Resp 17 12/25/24 20:46 BP 134/70 12/25/24 20:46 Pulse Ox 95 12/25/24 20:46 O2 Del Method Room Air 12/25/24 20:46 Weight last 48 hrs Weight 101.514 kg Data NPU 12/14/24 11:58 12/14/24 11:58 A&P Assessment and plan 1. Schizophrenia, unspecified type: 2. Acute psychosis: Plan: This is a 54-year-old white female with a history of schizophrenia who has been hospitalized here previously most recently in 3 months ago now presenting with paranoia and noncompliant with any medications. 1. Will attempt to gather collateral information. 2. Continue every 15 minute checks for safety. 3. Encourage individual, group and milieu therapy. 4. Encourage sober living treatment after discharge at the highest level care to which she is willing to commit as we explore whether recent addictive behavior played a role in this presentation. Patient positive for THC on UDS. 5. D/C [place], will seek medical authorization of abilify Maintena 400mg and Abilify Asumufii 960mg IM today. Initiate Abilify 10mg daily.-Haldol IM 5mg if refusal. Will explore patient is report about medication cost. 6. Patient now on 21 day hold. PDMP PDMP Reviewed: Not Reviewed Involuntary Hold Information 2 Hold Status: Legal Status: 96 Hour Hold Date/Time Hold Expires: 01/10/2025 96 Hour Hold: 96 Hour Involuntary Admission: Yes Attestations NPU 2 Medical Necessity Statement*: Inpatient hospitalization is medically necessary and the clinically appropriate intervention at this time. We will monitor/initiate medications and make changes as indicated. Her likely length of stay 4-7 days. Coding Level of Care Code Acute Code for Chg Fwd Diagnoses Schizophrenia, unspecified type F20.9 Schizophrenia type: unspecified Acute psychosis F23
[2024-12-25 20:46] VITALS: BP 134/70; PULSE 76; RESP 17; TEMP 36.4; O2SAT 95
[2024-12-26 06:00] VITALS: BP 107/77; PULSE 88; RESP 18; TEMP 36.4; O2SAT 99
[2024-12-26] MEDS: PREMARIN 0.45 MG PO (08:28)
--- NOTE | 2024-12-26 09:08 | PC.NURSE ---
pt states she has never had SI or HI and does not believe she needs the ablilify because it makes her irritable and she has never experienced AVH. pt states reason she is here is because she ran across the road away from her because she was afraid of him do to his medication (testosterone) and that he was mad because the goats got into the house do to latch being broken. pt also states that she did not get to talk with doctor Monroy because she was playing cards with others and he did not specifically ask to speak with her. pt denies any needs
--- NOTE | 2024-12-26 12:27 | P.NPUPN_ITS ---
Subjective NPU 2 Subjective: Patient presented today reporting that she is wanting to get better but also is interested in knowing what her actual diagnosis is. She reports that she does not feel that she has some of the conditions suggested in her documentation and she wants to make sure that she is taking the right medication for the diagnoses that she has. We discussed us reviewing the chart to see what her previous presentations have been like but that is not uncommon for her condition to have different faces that have presented to the hospital over the years. We discussed understanding her situation against this context and making sure were not just talking about the elements of this visit. She denied any side effects of her medication but continued to express concerns about weight gain. Mental Status Exam 2 MSE Comments: This is an obese, pale white female in hospital scrubs with poor grooming and fair eye contact. Noteworthy hirsutism. No abnormal involuntary motor movements except for mild psychomotor agitation. She was mildly cooperative with exam and appeared in mild to moderate distress. Her speech was monotone in quality and decreased in rate and normal in volume. Her thought process was linear. Thought content: Patient denied suicidal or homicidal ideation. There was evidence of bizarre delusions of being controlled by the government since childhood. She denied any auditory or visual hallucinations and did not appear to be responding to internal stimuli. There was prominent ideas of reference and significant paranoia. Attention and concentration were limited and memory appeared mostly reliable but none were formally tested. She is alert and oriented to person and place. Her insight, judgment and impulse control are all impaired. Vitals/I&O/Wt Last Vital Signs Temp 97.6 F 12/26/24 06:00 Pulse 88 12/26/24 06:00 Resp 18 12/26/24 06:00 BP 107/77 12/26/24 06:00 Pulse Ox 99 12/26/24 06:00 O2 Del Method Room Air 12/26/24 06:00 Weight last 48 hrs Weight 101.514 kg Data NPU 12/14/24 11:58 12/14/24 11:58 A&P Assessment and plan 1. Schizophrenia, unspecified type: 2. Acute psychosis: Plan: This is a 54-year-old white female with a history of schizophrenia who has been hospitalized here previously most recently in 3 months ago now presenting with paranoia and noncompliant with any medications. 1. Will attempt to gather collateral information. 2. Continue every 15 minute checks for safety. 3. Encourage individual, group and milieu therapy. 4. Encourage sober living treatment after discharge at the highest level care to which she is willing to commit as we explore whether recent addictive behavior played a role in this presentation. Patient positive for THC on UDS. 5. D/C [facility], will seek medical authorization of abilify Maintena 400mg and Abilify Asumufii 960mg IM today. Initiate Abilify 10mg daily.-Haldol IM 5mg if refusal. Will explore patient is report about medication cost. Attempting to get access to the medications for the rapid titration of Abilify through the dual injection process. 6. Patient now on 21 day hold. PDMP PDMP Reviewed: Not Reviewed Involuntary Hold Information 2 Hold Status: Legal Status: 96 Hour Hold Date/Time Hold Expires: 01/10/2025 96 Hour Hold: 96 Hour Involuntary Admission: Yes Attestations NPU 2 Medical Necessity Statement*: Inpatient hospitalization is medically necessary and the clinically appropriate intervention at this time. We will monitor/initiate medications and make changes as indicated. Her likely length of stay 3-5 days. Coding Level of Care Code Acute Code for Chg Fwd Diagnoses Schizophrenia, unspecified type F20.9 Schizophrenia type: unspecified Acute psychosis F23
[2024-12-26 12:49] VITALS: BP 97/68; PULSE 93; RESP 16; TEMP 36.8; O2SAT 98
[2024-12-26 20:03] VITALS: BP 116/72; PULSE 70; RESP 18; TEMP 36.3; O2SAT 99
[2024-12-27 06:00] VITALS: BP 100/59; PULSE 58; RESP 17; TEMP 36.6; O2SAT 98
[2024-12-27] MEDS: PREMARIN 0.45 MG PO (08:03)
[2024-12-27 14:00] VITALS: BP 116/72; PULSE 62; RESP 16; O2SAT 99
--- NOTE | 2024-12-27 14:01 | PC.NURSE ---
Pt has requested that she receive double portions of protein at each meal.
--- NOTE | 2024-12-27 16:58 | W.PM.NPUPNS ---
Subjective NPU Subjective: Patient presented today reporting that she is doing all right. We discussed the fact that she talked about being confused about her diagnosis but after chart review we discussed the fact that she is presented multiple times with severe psychosis and so the fact that there are times where she is absent psychosis does not change the diagnosis of schizophrenia. We continue to work with her on making sure that she has access to the medication either through her insurance or through an indigent program. She denied any specific side effects to her medication. Mental Status Exam MSE Comments: This is an obese, pale white female in hospital scrubs with poor grooming and fair eye contact. Noteworthy hirsutism. No abnormal involuntary motor movements except for mild psychomotor agitation. She was mildly cooperative with exam and appeared in mild to moderate distress. Her speech was monotone in quality and decreased in rate and normal in volume. Her thought process was linear. Thought content: Patient denied suicidal or homicidal ideation. There was evidence of bizarre delusions of being controlled by the government since childhood. She denied any auditory or visual hallucinations and did not appear to be responding to internal stimuli. There was prominent ideas of reference and significant paranoia. Attention and concentration were limited and memory appeared mostly reliable but none were formally tested. She is alert and oriented to person and place. Her insight, judgment and impulse control are all impaired. Vitals/I&O/Wt Last Vital Signs Temp 97.9 F 12/27/24 19:44 Pulse 61 12/27/24 19:44 Resp 20 H 12/27/24 19:44 BP 105/59 12/27/24 19:44 Pulse Ox 100 12/27/24 19:44 O2 Del Method Room Air 12/27/24 19:44 12/27/24 14:59 Intake Total Balance Data NPU 12/14/24 11:58 12/14/24 11:58 A&P Assessment and plan 1. Schizophrenia, unspecified type: 2. Acute psychosis: Plan: This is a 54-year-old white female with a history of schizophrenia who has been hospitalized here previously most recently in 3 months ago now presenting with paranoia and noncompliant with any medications. 1. Will attempt to gather collateral information. 2. Continue every 15 minute checks for safety. 3. Encourage individual, group and milieu therapy. 4. Encourage sober living treatment after discharge at the highest level care to which she is willing to commit as we explore whether recent addictive behavior played a role in this presentation. Patient positive for THC on UDS. 5. D/C [facility], will seek medical authorization of abilify Maintena 400mg and Abilify Asumufii 960mg IM today. Initiate Abilify 10mg daily.-Haldol IM 5mg if refusal. Will explore patient is report about medication cost. Attempting to get access to the medications for the rapid titration of Abilify through the dual injection process. 6. Patient now on 21 day hold. PDMP PDMP Reviewed: Not Reviewed Involuntary Hold Information Hold Status: Legal Status: 96 Hour Hold Date/Time Hold Expires: 01/10/2025 96 Hour Hold: 96 Hour Involuntary Admission: Yes Attestations NPU Medical Necessity Statement*: Inpatient hospitalization is medically necessary and the clinically appropriate intervention at this time. We will monitor/initiate medications and make changes as indicated. Her likely length of stay 2-4 days. Coding Level of Care Code Acute Code for [facility] Diagnoses Schizophrenia, unspecified type F20.9 Schizophrenia type: unspecified Acute psychosis F23
[2024-12-27 19:44] VITALS: BP 105/59; PULSE 61; RESP 20; TEMP 36.6; O2SAT 100
[2024-12-28 06:00] VITALS: BP 108/64; PULSE 55; RESP 16; TEMP 36.8; O2SAT 99
--- NOTE | 2024-12-28 07:25 | P.NPUPN_ITS ---
Subjective NPU 2 Subjective: Patient presented today reporting that things are going fine. We discussed the risks, benefits and alternatives of restarting her Wellbutrin XL and she understood and agreed to proceed as is documented in this note. She reports that she could tell that she did better when it was on and so she was more than happy to get that restarted. Otherwise she reports things are going okay and she is looking forward to discharge when we feel she is ready. She denied any side effects of her medication. Mental Status Exam 2 MSE Comments: This is an obese, pale white female in hospital scrubs with poor grooming and fair eye contact. Noteworthy hirsutism. No abnormal involuntary motor movements except for mild psychomotor agitation. She was mildly cooperative with exam and appeared in mild to moderate distress. Her speech was monotone in quality and decreased in rate and normal in volume. Her thought process was linear. Thought content: Patient denied suicidal or homicidal ideation. There was evidence of bizarre delusions of being controlled by the government since childhood. She denied any auditory or visual hallucinations and did not appear to be responding to internal stimuli. There was prominent ideas of reference and significant paranoia. Attention and concentration were limited and memory appeared mostly reliable but none were formally tested. She is alert and oriented to person and place. Her insight, judgment and impulse control are all impaired. Vitals/I&O/Wt Last Vital Signs Temp 98.2 F 12/28/24 06:00 Pulse 55 L 12/28/24 06:00 Resp 16 12/28/24 06:00 BP 108/64 12/28/24 06:00 Pulse Ox 99 12/28/24 06:00 O2 Del Method Room Air 12/28/24 06:00 12/27/24 12/28/24 12/28/24 22:59 06:59 14:59 Intake Total 480 / 480 Balance 480 / 480 Data NPU 12/14/24 11:58 12/14/24 11:58 A&P Assessment and plan 1. Schizophrenia, unspecified type: 2. Acute psychosis: Plan: This is a 54-year-old white female with a history of schizophrenia who has been hospitalized here previously most recently in 3 months ago now presenting with paranoia and noncompliant with any medications. 1. Will attempt to gather collateral information. 2. Continue every 15 minute checks for safety. 3. Encourage individual, group and milieu therapy. 4. Encourage sober living treatment after discharge at the highest level care to which she is willing to commit as we explore whether recent addictive behavior played a role in this presentation. Patient positive for THC on UDS. 5. D/C [place], will seek medical authorization of abilify Maintena 400mg and Abilify Asumufii 960mg IM today. Initiate Abilify 10mg daily.-Haldol IM 5mg if refusal. Will explore patient is report about medication cost. Attempting to get access to the medications for the rapid titration of Abilify through the dual injection process. 6. Patient now on 21 day hold. PDMP PDMP Reviewed: Not Reviewed Involuntary Hold Information 2 Hold Status: Legal Status: 96 Hour Hold Date/Time Hold Expires: 01/10/2025 96 Hour Hold: 96 Hour Involuntary Admission: Yes Attestations NPU 2 Medical Necessity Statement*: Inpatient hospitalization is medically necessary and the clinically appropriate intervention at this time. We will monitor/initiate medications and make changes as indicated. Her likely length of stay 2-4 days. Coding Level of Care Code Acute Code for g Fwd Diagnoses Schizophrenia, unspecified type F20.9 Schizophrenia type: unspecified Acute psychosis F23
[2024-12-28] MEDS: PREMARIN 0.45 MG PO (08:23)
[2024-12-28 14:00] VITALS: BP 110/65; PULSE 86; RESP 18; O2SAT 98
[2024-12-28 20:26] VITALS: BP 102/58; PULSE 60; RESP 16; TEMP 36.7; O2SAT 98
[2024-12-29 04:55] VITALS: BP 101/69; PULSE 79; RESP 17; TEMP 36.5; O2SAT 98
[2024-12-29] MEDS: PREMARIN 0.45 MG PO (08:02)
--- NOTE | 2024-12-29 12:09 | DCPLANNER ---
IMM was given to pt and rights explained and copy placed in pts file.
[2024-12-29] MEDS: ARIPiprazole Maintena 400 MG IM (13:30)
[2024-12-29 13:38] VITALS: BP 110/68; PULSE 70; RESP 16; O2SAT 98
[2024-12-29 13:47] VITALS: BP 110/68; PULSE 70; RESP 16; O2SAT 98
== END 2024-12-29 15:00 | disposition home or self-care (01) | DRG 885 ==
LOC: ER 11:29 → NP 11:48
PROVIDERS: Admitting Provider Psychiatry & Neurology Psychiatry; Emergency Provider Emergency Medicine; PCP Registered Nurse; Visit Provider Psychiatry & Neurology Psychiatry
DX: F20.9 Schizophrenia, unspecified (principal); E66.9 Obesity, unspecified; Z68.38 Body mass index [BMI] 38.0-38.9, adult; F17.200 Nicotine dependence, unspecified, uncomplicated; Z91.148 Patient's other noncompliance with medication regimen for other reason; I10 Essential (primary) hypertension; T43.596A Underdosing of other antipsychotics and neuroleptics, initial encounter
CPT/HCPCS: 36415; 80053; 80306; 80307; 85025; 96372; 97150; 97165; 99285; J9999